=== PATIENT | male | born 1950 ===

== ENCOUNTER 2020-03-21 17:36 | Emergency (ER) | payer MEDICARE, SELFPAY ==
[2020-03-21 21:38] VITALS: BP 166/98; PULSE 76; RESP 18; O2SAT 99; BMI 30.7
[2020-03-21 23:33] VITALS: BP 160/92; PULSE 72; RESP 18
--- NOTE | 2020-03-21 23:35 | PC.NURSE ---
pt took own htn meds at 9:30pm
[2020-03-22 00:28] VITALS: BP 183/106; PULSE 69; RESP 17; TEMP 36.5; O2SAT 100
--- NOTE | 2020-03-22 00:30 | ED.RECABL ---
HPI - Recheck/Abnormal Lab/Rx General Chief Complaint: Recheck/Abnormal Lab/Rx Stated Complaint: HIGH BP Time Seen by Provider: 03/22/20 00:29 Source: patient Mode of arrival: ambulatory Limitations: language barrier History of Present Illness HPI narrative: Patient history of hypertension diabetes history of CVA on multiple medication for blood pressure including nifedipine 30 mg daily lisinopril 20 mg twice daily and Coreg twice daily for last 2 days noticed blood pressure on the high side. Patient denies any headache no chest pain or shortness of breath on arrival patient's blood pressure was 183/106 in the past patient blood pressure used to be in 120s few years ago patient used to be on multiple medications for blood pressure control per records Related Data Previous Rx's Medication Instructions Recorded amlodipine [Norvasc] 10 mg PO DAILY #30 tab 03/22/20 Allergies Allergy/AdvReac Type Severity Reaction Status Date / Time No Known Allergies Allergy Unverified 11/25/19 16:43 [No Known Allergies*] Review of Systems Review of Systems: Constitutional : No Weight loss, No Fever, No Chills ENT/Mouth : No sore throat, No Rhinorrhea Eyes: No Eye Pain, No Swelling Cardiovascular : No Chest Pain, no palpitations Respiratory : No Cough, No Sputum, no shortness of breath Gastrointestinal : no Nausea, No Vomiting, No Diarrhea, No abdominal Pain, no black stools Genitourinary : No Dysuria, No Urinary Frequency Musculoskeletal : No joint pain, No Myalgias, No Joint Swelling Skin : No Skin Lesions, No rash Neuro : No Weakness, No Numbness, No Dizziness, No Headache Psych : No Anxiety/Panic, No Depression Heme/Lymph: No Bruising, No Lymphadenopathy Endocrine : No Polyuria, No Polydipsia All other systems reviewed and are negative [facility] Past Medical History Medical History Diabetes 1.5, managed as type 2 Hypertension Social History Social History Advance Directives: No Physical Exam Vital Signs: Vital Signs: Last Vital Signs Temp 97.7 F 03/22/20 00:28 Pulse 90 03/22/20 01:20 Resp 17 03/22/20 00:28 BP 140/97 H 03/22/20 01:20 Pulse Ox 100 03/22/20 00:28 Body Mass Index 30.7 Appearance: Alert. Oriented X3. No acute distress. Eyes: Pupils equal, round and reactive to light. ENT: Pharynx normal. Neck: Normal inspection. Neck supple. CVS: Normal heart rate and rhythm. Pulses normal. Respiratory: No respiratory distress. Breath sounds normal. Abdomen: Soft and nontender. Bowel sounds are present, no mass palpable, no CVA tenderness Skin: Skin warm and dry. Normal skin color. Normal skin turgor. Extremities: No lower extremity edema. Neuro: Oriented X 3. No motor deficit. No sensory deficit. MDM - Recheck/Abnormal Lab/Rx MDM Narrative Medical decision making narrative: Patient with history of diabetes and hypertension on multiple medications for blood pressure control came here for her accelerated hypertension without any clinical and organ damage. Will check the patient's labs to see if any elevation and BUN/ creatinine. Patient had stable labs, Will stop nifedipine for heart rate of 59 and start on on Norvasc 10 mg daily and advised to follow-up with PCP patient's blood pressure improved to 141/86 Medical Records Attestation: I reviewed the patient's medical records. Lab Data Attestation: I reviewed the patient's lab results. Result diagrams: 03/22/20 01:15 03/22/20 01:15 Labs: Lab Results 03/22/20 03/22/20 Range/Units 01:15 01:15 WBC 8.9 (4.8-10.8) X10*3/uL RBC 4.66 (4.60-5.80) X10*6/uL Hgb 13.1 L (14.0-18.0) g/dl Hct 40.8 L (42-52) % MCV 87.6 (80-98) fL MCH 28.1 (27.0-33.0) pg MCHC 32.1 (31.0-36.0) g/dl RDW 13.8 (11.0-16.0) % Plt Count 231 (160-400) X10*3/uL MPV 9.8 (9.4-12.4) fL Immature Gran % (Auto) 0.1 (0.0-0.4) % Neut % (Auto) 58.1 (45-73) % Lymph % (Auto) 32.4 (20-40) % [place] % (Auto) 8.5 (2-11) % Eos % (Auto) 0.7 (0-4) % Baso % (Auto) 0.2 (0-2) % Lymph # (Auto) 2.9 (1.2-4.9) X10*3/uL [place] # (Auto) 0.8 (0.1-1.2) X10*3/uL Eos # (Auto) 0.1 (0.0-0.4) X10*3/uL Baso # (Auto) 0.0 (0.0-0.2) X10*3/uL Abs Immat Gran (auto) 0.01 (0.00-0.03) X10*3/uL Absolute Neuts (auto) 5.2 (2.0-8.3) X10*3/uL Absolute Nucleated RBC 0.000 (0.0-0.012) X10*3/uL Nucleated RBC % (auto) 0.0 (0.0-0.2) /100WBC Sodium 139 (135-145) mmol/L Potassium 3.7 (3.3-5.1) mmol/l Chloride 101 (96-108) mmol/L Carbon Dioxide 30 H (22-29) mmol/L Anion Gap 12 (12-20) BUN 16 (9-16) mg/dL Creatinine 1.41 H (0.5-1.4) mg/dL Estim Creat Clear Calc 58.6 Estimated GFR 50 Random Glucose 97 (60-115) mg/dL Calcium 9.8 (8.4-10.2) mg/dL Total Bilirubin 0.4 (0.0-1.0) mg/dL Direct Bilirubin 0.2 (0.0-0.5) mg/dL AST 19 (5-37) U/L ALT 19 (0-40) U/L Alkaline Phosphatase 80 (39-117) U/L Total Protein 7.6 (6.5-8.0) g/dL Albumin 4.3 (3.5-5.0) g/dL ECG Data Attestation: I personally reviewed and interpreted this ECG as follows: Interpretation: Sinus bradycardia with heart rate of 59 normal intervals normal axis no acute ischemic changes Discharge Plan Discharge Clinical Impression: Hypertension Qualifiers: Hypertension type: essential hypertension Qualified Code(s): I10 - Essential (primary) hypertension Patient Disposition: Home, Self-Care Instructions: Hypertension (ED) Additional Instructions: Stop nifedipine and start on amlodipine 10 mg daily Check blood pressure daily he should be less than 140/90 Suspenda la nifedipina y comience con amlodipina 10 mg al d?a Controle la presi?n arterial diariamente, debe ser inferior a 140/90 Prescriptions: New amlodipine [Norvasc] 10 mg tablet 10 mg PO DAILY Qty: 30 RF: 0 Print Language: [place]ish
--- NOTE | 2020-03-22 00:47 | ECG_ITS ---
Test Reason : ABDNORMAL LABS Blood Pressure : / mmHG Vent. Rate : 059 BPM Atrial Rate : 059 BPM P-R Int : 186 ms QRS Dur : 138 ms QT Int : 416 ms P-R-T Axes : 043 016 023 degrees QTc Int : 411 ms Sinus bradycardia Non-specific intra-ventricular conduction block Abnormal ECG When compared with ECG of 09-JAN-2015 16:21, No significant change was found Referred By: Fransico Trivedi Electronically Signed By:KIP HARRIS MD
[2020-03-22 01:19] LABS: MANUAL DIFF FLAG NO
[2020-03-22 01:20] VITALS: BP 140/97; PULSE 90
[2020-03-22 01:35] LABS: Basophils Percent Auto 0.2 % (0-2); Eosinophils Absolute Auto 0.1 X10*3/uL (0.0-0.4); Eosinophils Percent Auto 0.7 % (0-4); Hematocrit 40.8 % (42-52); Hemoglobin 13.1 g/dl (14.0-18.0); Imm Gran Abs Auto 0.01 X10*3/uL (0.00-0.03); Imm Gran Pct Auto 0.1 % (0.0-0.4); Lymphocytes Absolute Auto 2.9 X10*3/uL (1.2-4.9); Lymphocytes Percent Auto 32.4 % (20-40); Mean Corpuscular HGB Conc 32.1 g/dl (31.0-36.0); Mean Corpuscular Hemoglobin 28.1 pg (27.0-33.0); Mean Corpuscular Volume 87.6 fL (80-98); Mean Platelet Volume 9.8 fL (9.4-12.4); Monocytes Absolute Auto 0.8 X10*3/uL (0.1-1.2); Monocytes Percent Auto 8.5 % (2-11); Neutrophils Absolute Auto 5.2 X10*3/uL (2.0-8.3); Neutrophils Percent Auto 58.1 % (45-73); Platelet Count 231 X10*3/uL (160-400); Red Blood Count 4.66 X10*6/uL (4.60-5.80); Red Cell Distribution Width 13.8 % (11.0-16.0); White Blood Count 8.9 X10*3/uL (4.8-10.8)
[2020-03-22 01:47] LABS: Alanine Aminotransferase 19 U/L (0-40); Albumin Level 4.3 g/dL (3.5-5.0); Alkaline Phosphatase 80 U/L (39-117); Anion Gap 12 (12-20); Aspartate Amino Transferase 19 U/L (5-37); Bilirubin Direct 0.2 mg/dL (0.0-0.5); Bilirubin Total 0.4 mg/dL (0.0-1.0); Blood Urea Nitrogen 16 mg/dL (9-16); Calcium 9.8 mg/dL (8.4-10.2); Carbon Dioxide 30 mmol/L (22-29); Chloride 101 mmol/L (96-108); Creatinine Clr Calc Pharmacy 58.6; Estimated Glomerular Filt Rate 50; Glucose Random 97 mg/dL (60-115); Potassium 3.7 mmol/l (3.3-5.1); Sodium 139 mmol/L (135-145); Total Protein 7.6 g/dL (6.5-8.0)
[2020-03-22 02:00] VITALS: BP 130/64; PULSE 70; RESP 18
== END 2020-03-22 02:30 | disposition home or self-care (01) ==
PROVIDERS: Emergency Provider Internal Medicine; PCP General Practice
DX: I10 Essential (primary) hypertension (principal); E11.9 Type 2 diabetes mellitus without complications; R00.1 Bradycardia, unspecified; Z86.73 Personal history of transient ischemic attack (TIA), and cerebral infarction without residual deficits; Z79.899 Other long term (current) drug therapy
CPT/HCPCS: 36415; 80048; 80076; 85025; 93005; 99283; 99284

== ENCOUNTER 2020-03-22 12:41 | Emergency (ER) | payer MEDICARE, SELFPAY ==
[2020-03-22 13:16] VITALS: PULSE 68; RESP 16; TEMP 36.9; O2SAT 99; BMI 30.8
--- NOTE | 2020-03-22 13:25 | ED_ITS ---
HPI - General Adult General Chief complaint: General Medical Stated complaint: htn Time Seen by Provider: 03/22/20 12:52 History of Present Illness HPI narrative: Please see course for history and physical Related Data Previous Rx's Medication Instructions Recorded amlodipine [Norvasc] 10 mg PO DAILY #30 tab 03/22/20 Allergies Allergy/AdvReac Type Severity Reaction Status Date / Time No Known Allergies Allergy Unverified 11/25/19 16:43 [No Known Allergies*] PMF Past Medical History Medical History Diabetes 1.5, managed as type 2 Hypertension Social History Social History Advance Directives: No Advance Directives Information Provided: Yes Physical Exam Vital Signs: Vital Signs: Last Vital Signs Temp 98.0 F 03/22/20 15:50 Pulse 60 03/22/20 15:50 Resp 18 03/22/20 15:50 BP 149/76 H 03/22/20 15:50 Pulse Ox 100 03/22/20 15:50 Body Mass Index 30.8 Course Course Course Narrative: Time Seen by Provider: 03/22/20 13:17 Source: patient Mode of arrival: EMS Limitations: language barrier History of Present Illness HPI narrative: Doctor told him to come to the ED. His initial BP 180/90. Patient with no other complaints. BP down to 120 Related Data Previous Rx's Medication Instructions Recorded folic acid 1 mg tablet 1 mg PO DAILY #30 tab 12/22/19 metformin 500 mg tablet 500 mg PO BID #60 tab 12/22/19 furosemide 20 mg tablet 20 mg PO DAILY #30 tab 03/12/20 Allergies Allergy/AdvReac Type Severity Reaction Status Date / Time sulfamethoxazole Allergy Unknown Rash Verified 03/08/20 13:07 Review of Systems Constitutional: Constitutional: Reports no additional constitutional complaints Eyes: Eyes: Reports no additional eye complaints ENT: Denies dizziness Cardiovascular: Cardiovascular: Reports no additional cardiovascular complaints Respiratory: Respiratory: Reports as per HPI Gastrointestinal: Gastrointestinal: Reports no additional gastrointestinal complaints Musculoskeletal: Musculoskeletal: Reports no additional musculoskeletal complaints Integumentary/Breasts: Skin/Breast: Denies rash Neurologic: Reports system reviewed and no additional complaints, except as documented, Denies dizziness and Denies Sensory deficit (Neuro) Psychiatric: Psychiatric: Denies anxiety PMFSH Past Medical History Medical History Diabetes HTN (hypertension) Surgical History No pertinent past surgical history Family History Family History Father Diabetes Hypertension Mother Diabetes Hypertension Son No problems noted. Sister No problems noted. Physical Exam Vital Signs: Vital Signs: Last Vital Signs Temp 98.5 F 03/22/20 12:46 Pulse 68 03/22/20 13:04 Resp 16 03/22/20 12:46 BP 189/97 H 03/22/20 13:04 Pulse Ox 99 03/22/20 12:46 Body Mass Index 30.8 Const: General: healthy appearing Nutritional Appearance: average body habitus Orientation/consciousness: oriented to person and patient oriented x3 Limitations: no limitations HENMT: Head: Yes normal to inspection Ears: external ears normal General nose exam: Normal external nose present Mouth: Normal oral and palatal mucosa present and oropharynx normal Throat: Yes posterior oropharynx normal Eyes: General: appearance normal, both eyes and all related structures Neck: Other: supple Neck: Yes normal visual inspection Chest: Chest palpation & inspection: normal inspection of the chest Resp: Auscultation: clear to auscultation bilaterally Cardio: Jugular venous distension: no JVD Rate: regular rate Rhythm: regular rhythm Heart sounds: S1 normal heart sound present and S2 normal heart sound present GI: Inspection: Yes normal to inspection Palpation (GI): Soft to palpation, nontender and No hepatosplenomegaly present Auscultation: normal bowel sounds : General: Yes no CVA tenderness Back/Spine/Pelvis: Back: no CVA tenderness Skin: General skin exam: no rashes or lesions noted Neuro: General: oriented to person and patient oriented x3 Cranial nerves: Yes CN's II-XII intact bilaterally Motor exam (neuro): 5/5 motor strength present throughout Sensory Exam: No Sensory deficit (Neuro) Extrem: General: Yes normal to inspection Psych: Appearance: grossly normal Course Course Course Narrative: Patient stable blood pressure, labs normal Medical Decision Making MDM Narrative Medical decision making narrative: essential hypertension Discharge Plan Discharge Prescriptions: No Action folic acid 1 mg tablet 1 mg PO DAILY Qty: 30 RF: 3 metformin 500 mg tablet 500 mg PO BID Qty: 60 RF: 6 furosemide 20 mg tablet 20 mg PO DAILY Qty: 30 RF: 3 Medical Decision Making MDM Narrative Medical decision making narrative: patient with normalized BP no evidence of renal involvement. Will dc home Lab Data Result diagrams: 03/22/20 13:37 03/22/20 13:37 Labs: Lab Results 03/22/20 03/22/20 Range/Units 13:37 15:18 Sodium 140 (135-145) mmol/L Potassium 3.9 (3.3-5.1) mmol/l Chloride 101 (96-108) mmol/L Carbon Dioxide 31 H (22-29) mmol/L Anion Gap 12 (12-20) BUN 20 H (9-16) mg/dL Creatinine 1.44 H (0.5-1.4) mg/dL Estim Creat Clear Calc 57.5 Estimated GFR 48 Random Glucose 126 H (60-115) mg/dL Calcium 9.9 (8.4-10.2) mg/dL Urine Color YELLOW Urine Appearance CLEAR Urine pH 6.0 (5.0-8.0) Ur Specific Crystal 1.020 (1.005-1.025) Urine Protein NEG (NEG-TRACE) MG/DL Urine Glucose (UA) NEG (NEG) MG/DL Urine Ketones NEG (NEG) MG/DL Urine Blood NEG (NEG) Urine Nitrite NEG (NEG) Ur Leukocyte Esterase NEG (NEG) Discharge Plan Discharge Patient Disposition: Home, Self-Care Instructions: Chronic Hypertension (ED) Prescriptions: No Action amlodipine [Norvasc] 10 mg tablet 10 mg PO DAILY Qty: 30 RF: 0 Referrals: Lori Acevedo MD [Primary Care Provider] - 2 days
[2020-03-22 13:45] VITALS: BP 189/97; PULSE 68
[2020-03-22] MEDS: amLODIPine Besylate 10 MG TABLET PO (13:45)
[2020-03-22 14:03] LABS: Anion Gap 12 (12-20); Blood Urea Nitrogen 20 mg/dL (9-16); Calcium 9.9 mg/dL (8.4-10.2); Carbon Dioxide 31 mmol/L (22-29); Chloride 101 mmol/L (96-108); Creatinine Clr Calc Pharmacy 57.5; Estimated Glomerular Filt Rate 48; Glucose Random 126 mg/dL (60-115); Potassium 3.9 mmol/l (3.3-5.1); Sodium 140 mmol/L (135-145)
[2020-03-22 14:20] VITALS: BP 147/86; PULSE 59; RESP 18
[2020-03-22 15:50] VITALS: BP 149/76; PULSE 60; RESP 18; TEMP 36.7; O2SAT 100
--- NOTE | 2020-03-22 15:50 | PC.NURSE ---
patient a&ox3, vitals stable, pt watching tv awaiting disposition, will continue to monitor.
[2020-03-22 16:18] LABS: Appearance Urine CLEAR; Color Urine YELLOW
[2020-03-22 16:19] LABS: Glucose Urine UA NEG (NEG); Leukocyte Esterase Urine NEG (NEG); Nitrite Urine NEG (NEG); Urine Blood NEG (NEG); Urine Ketones NEG (NEG); Urine Protein NEG (NEG-TRACE)
== END 2020-03-22 16:58 | disposition home or self-care (01) ==
PROVIDERS: Emergency Provider Emergency Medicine; PCP General Practice
DX: I10 Essential (primary) hypertension (principal); E11.9 Type 2 diabetes mellitus without complications; Z79.84 Long term (current) use of oral hypoglycemic drugs; Z79.899 Other long term (current) drug therapy
CPT/HCPCS: 36415; 80048; 81003; 99283; 99284

== ENCOUNTER 2020-03-23 00:28 | Emergency (ER) | payer MEDICARE, SELFPAY ==
[2020-03-23 00:33] VITALS: BP 162/84; PULSE 70; RESP 16; TEMP 36.9; O2SAT 97
--- NOTE | 2020-03-23 01:59 | ED.GENADULT ---
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 He denies any chest pain or neuro symptoms - he is anxious Onset (ago): day(s) (3) Radiation: non-radiation Severity: mild Pain Consistency: constant Relieving factors: none Exacerbating factors: other (stress) Associated symptoms: denies other symptoms Treatments prior to arrival: other (states he takes all of his medications on multiple BP medications) Related Data Previous Rx's Medication Instructions Recorded amlodipine [Norvasc] 10 mg PO DAILY #30 tab 03/22/20 Allergies Allergy/AdvReac Type Severity Reaction Status Date / Time No Known Allergies Allergy Unverified 11/25/19 16:43 [No Known Allergies*] Review of Systems Review of Systems: Constitutional : No Weight loss, No Fever, No Chills, No Fatigue, No Malaise ENT/Mouth : No sore throat, No Rhinorrhea Eyes: No Eye Pain, No Swelling, No Redness Cardiovascular : No Chest Pain, No SOB, No Dyspnea on Exertion, No Orthopnea, No Edema, No Palpitations Respiratory : No Cough, No Sputum, No Wheezing Gastrointestinal : No Nausea, No Vomiting, No Diarrhea, No Constipation, No abdominal Pain, No Hematochezia, No Melena Genitourinary : No Dysuria, No Urinary Frequency, No Hematuria, Musculoskeletal : No joint pain, No Myalgias, No Joint Swelling Skin : No Skin Lesions, No rash Neuro : No Weakness, No Numbness, No Dizziness, No Headache Psych : pos Anxiety/Panic, No Depression PMFSH Past Medical History Attestation statement: The following information was validated with the patient. Medical History Diabetes 1.5, managed as type 2 Hypertension Social History Social History (Updated 03/23/20 @ 02:02 by Esha Harman DO) Alcohol intake: never Smoking Status: Never smoker Smoked in Last 30 Days: No Advance Directives: No Advance Directives Information Provided: No Physical Exam Vital Signs: Vital Signs: Last Vital Signs Temp 98.2 F 03/23/20 02:05 Pulse 64 03/23/20 02:05 Resp 18 03/23/20 02:05 BP 131/79 03/23/20 03:05 Pulse Ox 98 03/23/20 02:05 Body Mass Index 30.7 Appearance: Alert. Oriented X3. No acute distress. Anixous, somewhat upset Eyes: Pupils equal, round and reactive to light. ENT: Pharynx normal. Neck: Normal inspection. Neck supple. CVS: Normal heart rate and rhythm. Pulses normal. Respiratory: No respiratory distress. Breath sounds normal. Abdomen: Soft and nontender. Skin: Skin warm and dry. Normal skin color. Normal skin turgor. Extremities: No lower extremity edema. No calf ttp Neuro: Oriented X 3. No motor deficit. No sensory deficit. Course Course Course Narrative: BP in 130s feels much better stable for DC Medical Decision Making MDM Narrative Medical decision making narrative: 69 yo male with HTN on multiple medications just switched to amlodipine 10mg states it is not working after one dose, has been checking his BP every minute and states it remains high, he is very anxious over it, denies CP/neuro symptoms at this time will treat anxiety and see if that improves his BP - dispo per improvement, discussed need for PCP follow up Discharge Plan Discharge Clinical Impression: Anxiety HTN (hypertension) Qualifiers: Hypertension type: essential hypertension Qualified Code(s): I10 - Essential (primary) hypertension Patient Disposition: Home, Self-Care Instructions: Chronic Hypertension (ED), Anxiety (ED) Additional Instructions: return to ED for any worsening symptoms or concerns PLEASE CHECK YOUR BLOOD PRESSURE ONCE A DAY AT THE SAME TIME Prescriptions: No Action amlodipine [Norvasc] 10 mg tablet 10 mg PO DAILY Qty: 30 RF: 0 Referrals: [facility] [Primary Care Provider] - 2 days Interventions: ED Discharge Assessment Last Done: 03/23/20 03:31 Discharge Date/Time: 03/23/20 03:32 Print Language: [place]
[2020-03-23 02:05] VITALS: BP 179/93; PULSE 64; RESP 18; TEMP 36.8; O2SAT 98; BMI 30.7
[2020-03-23] MEDS: LORazepam 1 MG TABLET PO (02:11)
[2020-03-23 03:05] VITALS: BP 131/79
== END 2020-03-23 03:32 | disposition home or self-care (01) ==
LOC: HO.ED 02:27
PROVIDERS: Emergency Provider Emergency Medicine
DX: F41.1 Generalized anxiety disorder (principal); F43.0 Acute stress reaction; I10 Essential (primary) hypertension; Z79.899 Other long term (current) drug therapy
CPT/HCPCS: 99284

== ENCOUNTER 2020-04-07 14:08 | Emergency (ER) | payer MEDICARE, SELFPAY ==
[2020-04-07 15:38] VITALS: BP 160/83; PULSE 60; RESP 18; TEMP 36.4; O2SAT 100; BMI 30.7
== END 2020-04-07 18:36 | disposition left against medical advice (07) ==
PROVIDERS: Emergency Provider Emergency Medicine
DX: R03.0 Elevated blood-pressure reading, without diagnosis of hypertension (principal)
CPT/HCPCS: 99282; 99283

== ENCOUNTER 2020-04-12 22:08 | Emergency (ER) | payer MEDICARE, SELFPAY ==
--- NOTE | 2020-04-12 | XR_ITS ---
EXAMINATION: XR CHEST CLINICAL INFORMATION: Hypertension COMPARISON: 08/04/2014 TECHNIQUE: 2 views of the chest were obtained. FINDINGS: No focal consolidation or mass. No pleural effusion or pneumothorax. Tortuous aorta. Normal heart size. Degenerative changes of the shoulders and spine. XR/XR chest 2V IMPRESSION: No acute pulmonary disease.
[2020-04-12 22:11] VITALS: BP 197/91; PULSE 75; RESP 16; TEMP 36.7; O2SAT 99; BMI 30.7
[2020-04-12 22:17] VITALS: BP 165/81
[2020-04-12 22:19] VITALS: BP 180/86
--- NOTE | 2020-04-12 22:23 | ECG_ITS ---
Test Reason : HTN Blood Pressure : / mmHG Vent. Rate : 069 BPM Atrial Rate : 069 BPM P-R Int : 174 ms QRS Dur : 120 ms QT Int : 392 ms P-R-T Axes : 029 027 056 degrees QTc Int : 420 ms Normal sinus rhythm Non-specific intra-ventricular conduction block Abnormal ECG When compared with ECG of 22-MAR-2020 01:46, No significant change was found Referred By: Generic ED Physician Electronically Signed By:MANUEL ARIAS
--- NOTE | 2020-04-12 22:26 | PC.NURSE ---
DISCUSSED BPS WITH DR GAMBLE WHEN REVIEWING EKG FROM [facility].
[2020-04-12 22:43] LABS: MANUAL DIFF FLAG NO
[2020-04-12 22:44] LABS: Basophils Percent Auto 0.3 % (0-2); Eosinophils Absolute Auto 0.1 X10*3/uL (0.0-0.4); Hematocrit 38.4 % (42-52); Hemoglobin 12.4 g/dl (14.0-18.0); Imm Gran Abs Auto 0.02 X10*3/uL (0.00-0.03); Imm Gran Pct Auto 0.2 % (0.0-0.4); Mean Corpuscular HGB Conc 32.3 g/dl (31.0-36.0); Mean Corpuscular Hemoglobin 28.1 pg (27.0-33.0); Mean Corpuscular Volume 87.1 fL (80-98); Mean Platelet Volume 10.2 fL (9.4-12.4); Monocytes Absolute Auto 0.7 X10*3/uL (0.1-1.2); Monocytes Percent Auto 7.4 % (2-11); Neutrophils Absolute Auto 5.5 X10*3/uL (2.0-8.3); Neutrophils Percent Auto 59.1 % (45-73); Platelet Count 231 X10*3/uL (160-400); Red Blood Count 4.41 X10*6/uL (4.60-5.80); Red Cell Distribution Width 13.2 % (11.0-16.0); White Blood Count 9.2 X10*3/uL (4.8-10.8)
[2020-04-12 23:08] LABS: Anion Gap 13 (12-20); Blood Urea Nitrogen 24 mg/dL (9-16); Calcium 9.5 mg/dL (8.4-10.2); Carbon Dioxide 29 mmol/L (22-29); Chloride 100 mmol/L (96-108); Creatinine Clr Calc Pharmacy 53.3; Estimated Glomerular Filt Rate 45; Glucose Random 101 mg/dL (60-115); Potassium 3.7 mmol/L (3.3-5.1); Sodium 138 mmol/L (135-145)
[2020-04-12 23:15] LABS: B Type Natriuretic Peptide < 10 pg/mL (<100)
[2020-04-12 23:57] VITALS: BP 165/79; PULSE 62; RESP 16; O2SAT 98
--- NOTE | 2020-04-13 00:02 | ED.GENADULT ---
HPI - General Adult General Chief complaint: General Medical Stated complaint: hypertension Time Seen by Provider: 04/12/20 23:59 Mode of arrival: ambulatory Limitations: language barrier History of Present Illness HPI narrative: 70-year-old male with past medical history of hypertension, chronic kidney disease, and diabetes presents with elevated blood pressure. Patient does take his blood pressure several times a day, has presented to this emergency department in the past for similar circumstances. He states that he does not take his medications as directed. He does not report any other symptoms, denies chest pain or pressure, palpitations, shortness of breath, abdominal pain, abdominal distention, dysuria hematuria, fevers, chills, and edema. Related Data Previous Rx's Medication Instructions Recorded amlodipine [Norvasc] 10 mg PO DAILY #30 tab 03/22/20 Allergies Allergy/AdvReac Type Severity Reaction Status Date / Time No Known Allergies Allergy Verified 04/12/20 22:10 [No Known Allergies*] Review of Systems Review of Systems: Constitutional: No Fever, No Chills ENT/Mouth: No Ear Pain, No Hoarseness, No sore throat Eyes: No Eye Pain, No Swelling, No Redness, No Foreign Body Cardiovascular: No Chest Pain, No SOB Respiratory: No Cough, No Dyspnea Gastrointestinal: No Nausea, No Vomiting, No Diarrhea, No abdominal Pain Genitourinary: No Dysuria, No Hematuria Musculoskeletal: No joint pain, No Myalgias, No Joint Swelling Skin: No Skin lacerations, No rash Neuro: No Weakness, No Numbness, No Paresthesias, No Loss of Consciousness, No Dizziness, No Headache Psych: No Anxiety/Panic, No Depression Heme/Lymph: no easy bruising, no Lymphadenopathy Endocrine: No Polyuria, No Polydipsia Yes all other systems are reviewed and are negative [facility] Past Medical History Source: old records reviewed Medical History Diabetes 1.5, managed as type 2 Hypertension Social History Social History Alcohol intake: never Smoking Status: Never smoker Advance Directives: No Physical Exam Vital Signs: Vital Signs: Last Vital Signs Temp 98.1 F 04/12/20 22:11 Pulse 54 04/13/20 02:22 Resp 18 04/13/20 02:22 BP 155/90 H 04/13/20 02:22 Pulse Ox 95 04/13/20 02:22 Body Mass Index 30.7 Appearance: Alert. Oriented X3. No acute distress. Eyes: Pupils equal, round and reactive to light. ENT: Pharynx normal. Neck: Normal inspection. Neck supple. CVS: Normal heart rate and rhythm. Pulses normal. Respiratory: No respiratory distress. Breath sounds normal. Abdomen: Soft and nontender. Skin: Skin warm and dry. Normal skin color. Normal skin turgor. Extremities: No lower extremity edema. Neuro: No motor deficit. No sensory deficit. NIH Stroke Scale Internal: Initial- Upon Arrival Level of Consciousness: Alert Level of Consciousness Questions: Answers both questions correctly Level of Consciousness Commands: Performs both tasks correctly Best Gaze: Normal Visual: No visual loss Facial Palsy: Normal Motor Arm (Right): No drift Motor Arm (Left): No drift Motor Leg (Right): No drift Motor Leg (Left): No drift Limb Ataxia: Absent Sensory: Normal Best Language: No aphasia Dysarthia: Normal Extinction and Inattention: No abnormality Score: 0 Course Course Course Narrative: 70-year-old male past medical history of hypertension, diabetes, chronic kidney disease stage 3 presents with elevated blood pressure. States that his blood pressure was 197/102 to prior to taking his medications. He does not report any symptoms, denies chest pain and pressure, palpitations, shortness of breath, edema, and altered mental status. Patient would like us to pursue scribe other medications. Detailed description regarding following up with primary care physician for medication management. Repeat blood pressures are 154/80, patient EKG is normal sinus rhythm with no significant changes when compared to March 22, 2020, EKG of March 22, 2020 compared to January 09, 2015 showed no significant changes. Highly unlikely that this is ACS at this time. Troponin at time 10:35 p.m. 11.7, repeat troponin at 12:49 a.m. 11.3. This is suspected to be from chronic kidney disease. BUN elevated at 24 which is not much different than his prior values of 20, creatinine 1.53 prior values of 1.44 on 03/22/2020. Cranial nerves 2-12 intact, strength 5/5 to all extremities, NIH stroke scale is 0. Patient was advised to continue to take all of his medications as prescribed. Follow up with his primary care provider, multiple discussions with patient that the emergency department is not the proper place to present for medication management. Patient strongly advised to follow up with his primary care physician. This case was discussed in detail with Dr. Ayers., and he agrees with this plan of care. marketing project manager utilized for all correspondence. Google translate utilized for discharge instructions. Medical Decision Making Differential Diagnosis Differential Diagnosis: Hypertension, CVA, ACS, renal failure Lab Data Result diagrams: 04/12/20 22:35 04/12/20 22:35 Labs: Lab Results 04/12/20 04/12/20 04/12/20 Range/Units 22:35 22:35 22:35 WBC 9.2 (4.8-10.8) X10*3/uL RBC 4.41 L (4.60-5.80) X10*6/uL Hgb 12.4 L (14.0-18.0) g/dl Hct 38.4 L (42-52) % MCV 87.1 (80-98) fL MCH 28.1 (27.0-33.0) pg MCHC 32.3 (31.0-36.0) g/dl RDW 13.2 (11.0-16.0) % Plt Count 231 (160-400) X10*3/uL MPV 10.2 (9.4-12.4) fL Immature Gran % (Auto) 0.2 (0.0-0.4) % Neut % (Auto) 59.1 (45-73) % Lymph % (Auto) 32.0 (20-40) % [place] % (Auto) 7.4 (2-11) % Eos % (Auto) 1.0 (0-4) % Baso % (Auto) 0.3 (0-2) % Lymph # (Auto) 3.0 (1.2-4.9) X10*3/uL [place] # (Auto) 0.7 (0.1-1.2) X10*3/uL Eos # (Auto) 0.1 (0.0-0.4) X10*3/uL Baso # (Auto) 0.0 (0.0-0.2) X10*3/uL Abs Immat Gran (auto) 0.02 (0.00-0.03) X10*3/uL Absolute Neuts (auto) 5.5 (2.0-8.3) X10*3/uL Absolute Nucleated RBC 0.000 (0.0-0.012) X10*3/uL Nucleated RBC % (auto) 0.0 (0.0-0.2) /100WBC Hold Blue Top SEE NOTE Sodium 138 (135-145) mmol/L Potassium 3.7 (3.3-5.1) mmol/L Chloride 100 (96-108) mmol/L Carbon Dioxide 29 (22-29) mmol/L Anion Gap 13 (12-20) BUN 24 H (9-16) mg/dL Creatinine 1.53 H (0.5-1.4) mg/dL Estim Creat Clear Calc 53.3 Estimated GFR 45 Random Glucose 101 (60-115) mg/dL Calcium 9.5 (8.4-10.2) mg/dL Troponin I High Sens (<3.5-35.0) ng/L B-Natriuretic Peptide (<100) pg/mL 04/12/20 04/12/20 04/13/20 Range/Units 22:35 22:35 00:49 WBC (4.8-10.8) X10*3/uL RBC (4.60-5.80) X10*6/uL Hgb (14.0-18.0) g/dl Hct (42-52) % MCV (80-98) fL MCH (27.0-33.0) pg MCHC (31.0-36.0) g/dl RDW (11.0-16.0) % Plt Count (160-400) X10*3/uL MPV (9.4-12.4) fL Immature Gran % (Auto) (0.0-0.4) % Neut % (Auto) (45-73) % Lymph % (Auto) (20-40) % [place] % (Auto) (2-11) % Eos % (Auto) (0-4) % Baso % (Auto) (0-2) % Lymph # (Auto) (1.2-4.9) X10*3/uL [place] # (Auto) (0.1-1.2) X10*3/uL Eos # (Auto) (0.0-0.4) X10*3/uL Baso # (Auto) (0.0-0.2) X10*3/uL Abs Immat Gran (auto) (0.00-0.03) X10*3/uL Absolute Neuts (auto) (2.0-8.3) X10*3/uL Absolute Nucleated RBC (0.0-0.012) X10*3/uL Nucleated RBC % (auto) (0.0-0.2) /100WBC Hold Blue Top Sodium (135-145) mmol/L Potassium (3.3-5.1) mmol/L Chloride (96-108) mmol/L Carbon Dioxide (22-29) mmol/L Anion Gap (12-20) BUN (9-16) mg/dL Creatinine (0.5-1.4) mg/dL Estim Creat Clear Calc Estimated GFR Random Glucose (60-115) mg/dL Calcium (8.4-10.2) mg/dL Troponin I High Sens 11.7 11.3 (<3.5-35.0) ng/L B-Natriuretic Peptide < 10 (<100) pg/mL ECG Data Attestation: I personally reviewed and interpreted this ECG as follows: Prior ECG tracings: available for review Interpretation: Vent. rate 69 BPM NH interval 174 ms QRS duration 120 ms QT/QTc 392/420 ms P-R-T axes 29 27 56 Normal sinus rhythm Cannot rule out Inferior infarct , age undetermined Abnormal ECG When compared with ECG of 22-MAR-2020 01:46, No significant change was found Date April 12, 2020, time 10:25 p.m. Discharge Plan Discharge Clinical Impression: Encounter for medication management Hypertension Qualifiers: Hypertension type: essential hypertension Qualified Code(s): I10 - Essential (primary) hypertension Patient Disposition: Home, Self-Care Instructions: Hypertension (ED), Medication Safety for Older Adults (ED) Additional Instructions: Te evaluaron para detectar presi?n arterial elevada. Por favor, tome tata medicamentos seg?n lo prescrito. Los medicamentos son muy importantes para mantener la presi?n arterial. Por favor, jeremy un seguimiento con el proveedor de atenci?n primaria dentro de la pr?xima semana. Lisseth por elegir zabrina departamento de emergencias para la evaluaci?n. Por favor, jeremy un seguimiento con el m?dico de atenci?n primaria seg?n sea necesario. Regrese al servicio de urgencias para cualquier s?ntoma nuevo, preocupante o que empeore. You were evaluated for elevated blood pressure. Please take your medications as prescribed. Your medications are very important to maintaining blood pressure. Please follow-up with primary care provider within the next week. Thank you for choosing this emergency department for evaluation. Please follow-up with primary care physician as needed. Return to the emergency department for any new, concerning, or worsening symptoms. Prescriptions: No Action amlodipine [Norvasc] 10 mg tablet 10 mg PO DAILY Qty: 30 RF: 0
[2020-04-13 00:25] LABS: Troponin-I High Sensitivity 11.7 ng/L (<3.5-35.0)
--- NOTE | 2020-04-13 00:26 | PC.NURSE ---
BOOKKEEPER RECEPTIONIST at bedside with options trader for primary eval.
[2020-04-13 00:27] VITALS: BP 154/80; PULSE 65; RESP 16
--- NOTE | 2020-04-13 00:33 | PC.NURSE ---
Per pt, last time he was seen at [facility], his HTN medication was changed from Spironolactone to Norvasc due to CKD. Pt states that he took the Norvasc briefly but states that his BP remained elevated. When he went to refill his RXs, he started taking the Spironolactone again even though he was told not to due to CKD. Pt seeing Nephrology due to CKD. Pt states that he checked his BP on his home machine @ 2100 prior to taking his PM antihypertensive.
--- NOTE | 2020-04-13 00:49 | PC.NURSE ---
Repeat Troponin obtained and sent.
[2020-04-13 01:17] LABS: Troponin-I High Sensitivity 11.3 ng/L (<3.5-35.0)
[2020-04-13 02:22] VITALS: BP 155/90; PULSE 54; RESP 18; O2SAT 95
== END 2020-04-13 02:31 | disposition home or self-care (01) ==
PROVIDERS: Nurse Practitioner Family; Emergency Provider Emergency Medicine
DX: I10 Essential (primary) hypertension (principal); Z91.14 Patient's other noncompliance with medication regimen; R29.700 NIHSS score 0
CPT/HCPCS: 36415; 71046; 80048; 83880; 84484; 85025; 93005; 99283; 99284

== ENCOUNTER 2020-04-17 23:34 | Emergency (ER) | payer MEDICARE, SELFPAY | END 2020-04-18 03:12 | disposition left against medical advice (07) | PROVIDERS: Emergency Provider Emergency Medicine | DX: I10 Essential (primary) hypertension (principal) ==

== ENCOUNTER 2020-04-27 11:38 | Emergency (ER) | payer MEDICARE, SELFPAY ==
[2020-04-27 11:43] VITALS: BP 174/74; PULSE 72; RESP 16; TEMP 36.8; O2SAT 99
[2020-04-27 15:07] LABS: MANUAL DIFF FLAG NO
[2020-04-27 15:08] LABS: Basophils Percent Auto 0.5 % (0-2); Eosinophils Absolute Auto 0.1 X10*3/uL (0.0-0.4); Eosinophils Percent Auto 0.6 % (0-4); Hematocrit 43.5 % (42-52); Hemoglobin 13.8 g/dl (14.0-18.0); Imm Gran Abs Auto 0.02 X10*3/uL (0.00-0.03); Imm Gran Pct Auto 0.2 % (0.0-0.4); Lymphocytes Absolute Auto 2.1 X10*3/uL (1.2-4.9); Lymphocytes Percent Auto 23.7 % (20-40); Mean Corpuscular HGB Conc 31.7 g/dl (31.0-36.0); Mean Corpuscular Hemoglobin 27.5 pg (27.0-33.0); Mean Corpuscular Volume 86.7 fL (80-98); Mean Platelet Volume 9.9 fL (9.4-12.4); Monocytes Absolute Auto 0.5 X10*3/uL (0.1-1.2); Platelet Count 245 X10*3/uL (160-400); Red Blood Count 5.02 X10*6/uL (4.60-5.80); Red Cell Distribution Width 13.4 % (11.0-16.0); White Blood Count 8.7 X10*3/uL (4.8-10.8)
[2020-04-27 15:32] LABS: Anion Gap 11 (12-20); Blood Urea Nitrogen 13 mg/dL (9-16); Calcium 10.3 mg/dL (8.4-10.2); Carbon Dioxide 33 mmol/L (22-29); Chloride 99 mmol/L (96-108); Estimated Glomerular Filt Rate 54; Glucose Random 147 mg/dL (60-115); Potassium 3.8 mmol/L (3.3-5.1); Sodium 139 mmol/L (135-145)
[2020-04-27 17:34] VITALS: BP 164/87; PULSE 58; RESP 14; O2SAT 100
[2020-04-27 17:37] VITALS: BP 164/87; PULSE 59; RESP 14; TEMP 36.6; O2SAT 100; BMI 30.4
--- NOTE | 2020-04-27 18:13 | ED_ITS ---
HPI - General Adult General Chief complaint: General Medical Stated complaint: HYPERTENTION Time Seen by Provider: 04/27/20 12:35 Source: patient and air conditioning unit assembler Mode of arrival: ambulatory Limitations: no limitations History of Present Illness HPI narrative: 70-year-old male with history of hypertension, patient is on multiple medication for hypertension patient admitted that his been compliant with his medication, today patient had blood pressure systolic was above 200, patient otherwise declined any headache or blurry vision or nausea or vomiting, no chest pain or abdominal pain. In the emergency department systolic blood pressure in the 150s, patient remain with no complain. Is tender routine labs were drawn from the waiting room and appear in his normal baseline. Related Data Previous Rx's Medication Instructions Recorded amlodipine [Norvasc] 10 mg PO DAILY #30 tab 03/22/20 Allergies Allergy/AdvReac Type Severity Reaction Status Date / Time No Known Allergies Allergy Verified 04/27/20 17:40 [No Known Allergies*] Review of Systems Review of Systems: All other systems are reviewed and are negative Constitutional: Reports as per HPI and Reports no additional constitutional complaints Eyes: Reports as per HPI and Reports no additional eye complaints Reports system reviewed and no additional complaints, except as documented Cardiovascular: Reports as per HPI and Reports no additional cardiovascular complaints Respiratory: Reports as per HPI and Reports no additional respiratory complaints Gastrointestinal: Reports as per HPI and Reports no additional gastrointestinal complaints Genitourinary: Reports no additional female genitourinary complaints Musculoskeletal: Reports no additional musculoskeletal complaints Skin/Breast: Reports system reviewed and no additional complaints, except as doc u Psychiatric: Reports no additional psychiatric complaints Endocrine: Reports no additional endocrine complaints Hematologic/Lymphatic: Reports no additional hematologic/lymphatic complaints Allergic/Immunologic: Reports no additional allergic/immunologic complaints Reports system reviewed and no additional complaints, except as documented and Reports Abnormal speech present [facility] Past Medical History Medical History Diabetes 1.5, managed as type 2 Hypertension Social History Social History Alcohol intake: never Smoking Status: Never smoker Advance Directives: No Advance Directives Information Provided: Yes Physical Exam Vital Signs: Vital Signs: Last Vital Signs Temp 97.8 F 04/27/20 17:37 Pulse 59 04/27/20 17:37 Resp 14 04/27/20 17:37 BP 164/87 H 04/27/20 17:37 Pulse Ox 100 04/27/20 17:37 Body Mass Index 30.4 Vital signs have been reviewed as appeared to be correct. Blood pressure in the high range. Heart rate normal. Respiration rate normal. Temperature normal. Oxygen saturation normal. Appearance: Alert. Oriented X3. No acute distress. Head: Normal external exam. Normocephalic. Atraumatic. No Peck signs noted. No raccoon eyes noted Eyes: PERRLA. EOMI. Conjunctiva and sclera normal. Eyelids normal. ENT: TM's Normal. Pharynx normal. Uvula midline. Moist mucous membranes. No trismus noted. No drooling noted. No muffled voice noted. Neck: Normal inspection. Neck supple. FROM. No adenopathy. Thyroid Normal. No meningeal signs. No neck mass noted. CVS: Normal heart rate and rhythm. Heart sound normal. No murmurs noted. Pulses normal throughout. Respiratory: No respiratory distress. Painless inspiration. Breath sounds normal. No wheezes/rales/rhonchi noted. Chest nontender. No accessory muscle usage noted or decreased air movement noted. Abdomen: Soft and nontender. Bowel sounds normal in all 4 quadrants. No distention noted. No organomegaly noted. No visible injury noted. Back: No CVA tenderness. Full range of motion noted. Skin: Skin warm and dry. Normal skin color. Normal skin turgor. No rashes/lesions/lacerations noted. Extremities: No lower extremity edema. Extremities exhibit normal range of motion. Extremities nontender. Neuro: Oriented X 3. No motor deficit. No sensory deficit. Reflexes normal. Course Course Course Narrative: Hypertension, I had a lengthy conversation with the patient using the air conditioning unit assembler service to explain that blood pressure numbers can fluctuate throughout the day and he need to comply with his medication, patient had recent modification of his medication by different doctors patient was instructed to follow his PCP in terms of controlling his blood pressure, patient will make an appointment with his PCP for further management of blood pressure. Medical Decision Making Lab Data Lab results reviewed: Yes I reviewed the patient's lab results. Result diagrams: 04/27/20 14:58 04/27/20 14:58 Labs: Lab Results 04/27/20 04/27/20 04/27/20 Range/Units 14:58 14:58 14:58 WBC 8.7 (4.8-10.8) X10*3/uL RBC 5.02 (4.60-5.80) X10*6/uL Hgb 13.8 L (14.0-18.0) g/dl Hct 43.5 (42-52) % MCV 86.7 (80-98) fL MCH 27.5 (27.0-33.0) pg MCHC 31.7 (31.0-36.0) g/dl RDW 13.4 (11.0-16.0) % Plt Count 245 (160-400) X10*3/uL MPV 9.9 (9.4-12.4) fL Immature Gran % (Auto) 0.2 (0.0-0.4) % Neut % (Auto) 69.0 (45-73) % Lymph % (Auto) 23.7 (20-40) % [place] % (Auto) 6.0 (2-11) % Eos % (Auto) 0.6 (0-4) % Baso % (Auto) 0.5 (0-2) % Lymph # (Auto) 2.1 (1.2-4.9) X10*3/uL [place] # (Auto) 0.5 (0.1-1.2) X10*3/uL Eos # (Auto) 0.1 (0.0-0.4) X10*3/uL Baso # (Auto) 0.0 (0.0-0.2) X10*3/uL Abs Immat Gran (auto) 0.02 (0.00-0.03) X10*3/uL Absolute Neuts (auto) 6.0 (2.0-8.3) X10*3/uL Absolute Nucleated RBC 0.000 (0.0-0.012) X10*3/uL Nucleated RBC % (auto) 0.0 (0.0-0.2) /100WBC Hold Purple Top SEE NOTE Hold Blue Top SEE NOTE Sodium (135-145) mmol/L Potassium (3.3-5.1) mmol/L Chloride (96-108) mmol/L Carbon Dioxide (22-29) mmol/L Anion Gap (12-20) BUN (9-16) mg/dL Creatinine (0.5-1.4) mg/dL Estim Creat Clear Calc Estimated GFR Random Glucose (60-115) mg/dL Calcium (8.4-10.2) mg/dL 04/27/20 Range/Units 14:58 WBC (4.8-10.8) X10*3/uL RBC (4.60-5.80) X10*6/uL Hgb (14.0-18.0) g/dl Hct (42-52) % MCV (80-98) fL MCH (27.0-33.0) pg MCHC (31.0-36.0) g/dl RDW (11.0-16.0) % Plt Count (160-400) X10*3/uL MPV (9.4-12.4) fL Immature Gran % (Auto) (0.0-0.4) % Neut % (Auto) (45-73) % Lymph % (Auto) (20-40) % [place] % (Auto) (2-11) % Eos % (Auto) (0-4) % Baso % (Auto) (0-2) % Lymph # (Auto) (1.2-4.9) X10*3/uL [place] # (Auto) (0.1-1.2) X10*3/uL Eos # (Auto) (0.0-0.4) X10*3/uL Baso # (Auto) (0.0-0.2) X10*3/uL Abs Immat Gran (auto) (0.00-0.03) X10*3/uL Absolute Neuts (auto) (2.0-8.3) X10*3/uL Absolute Nucleated RBC (0.0-0.012) X10*3/uL Nucleated RBC % (auto) (0.0-0.2) /100WBC Hold Purple Top Hold Blue Top Sodium 139 (135-145) mmol/L Potassium 3.8 (3.3-5.1) mmol/L Chloride 99 (96-108) mmol/L Carbon Dioxide 33 H (22-29) mmol/L Anion Gap 11 L (12-20) BUN 13 (9-16) mg/dL Creatinine 1.31 (0.5-1.4) mg/dL Estim Creat Clear Calc TNP Estimated GFR 54 Random Glucose 147 H D (60-115) mg/dL Calcium 10.3 H D (8.4-10.2) mg/dL Discharge Plan Discharge Clinical Impression: Hypertension Qualifiers: Hypertension type: essential hypertension Qualified Code(s): I10 - Essential (primary) hypertension Patient Disposition: Home, Self-Care Instructions: Hypertension (ED) Prescriptions: No Action amlodipine [Norvasc] 10 mg tablet 10 mg PO DAILY Qty: 30 RF: 0 Referrals: [facility] [Primary Care Provider] - 2 days
== END 2020-04-27 18:42 | disposition home or self-care (01) ==
PROVIDERS: Emergency Provider Emergency Medicine
DX: I10 Essential (primary) hypertension (principal); E13.9 Other specified diabetes mellitus without complications
CPT/HCPCS: 36415; 80048; 85025; 99283

== ENCOUNTER 2020-05-02 21:46 | Emergency (ER) | payer MEDICARE, SELFPAY ==
[2020-05-02 22:58] VITALS: BP 175/89; PULSE 77; RESP 18; TEMP 36.6; O2SAT 98; BMI 30.4
[2020-05-03 00:22] VITALS: BP 166/86; PULSE 70; RESP 16; TEMP 37.3; O2SAT 98
--- NOTE | 2020-05-03 01:43 | ED_ITS ---
HPI - General Adult General Chief complaint: General Medical Stated complaint: HIGH BLOOD PRESSURE Time Seen by Provider: 05/03/20 01:43 Source: patient Mode of arrival: ambulatory Limitations: no limitations History of Present Illness HPI narrative: Patient history of hypertension denies heading blood pressure at home systolic was in 190s used to be on blood pressure medication the past but because of side effects not taking his medication in the past restarted on amlodipine when seen in the ER on 04/27 no headache no chest pain or shortness of breath patient very anxious on arrival blood pressure was 175/89 pulse rate 77 Related Data Previous Rx's Medication Instructions Recorded amlodipine [Norvasc] 10 mg PO DAILY #30 tab 03/22/20 Allergies Allergy/AdvReac Type Severity Reaction Status Date / Time No Known Allergies Allergy Verified 05/02/20 22:58 [No Known Allergies*] Review of Systems Review of Systems: Constitutional : No Weight loss, No Fever, No Chills ENT/Mouth : No sore throat, No Rhinorrhea Eyes: No Eye Pain, No Swelling Cardiovascular : No Chest Pain, no palpitations Respiratory : No Cough, No Sputum, no shortness of breath Gastrointestinal : no Nausea, No Vomiting, No Diarrhea, No abdominal Pain, no black stools Genitourinary : No Dysuria, No Urinary Frequency Musculoskeletal : No joint pain, No Myalgias, No Joint Swelling Skin : No Skin Lesions, No rash Neuro : No Weakness, No Numbness, No Dizziness, No Headache Psych : No Anxiety/Panic, No Depression Heme/Lymph: No Bruising, No Lymphadenopathy Endocrine : No Polyuria, No Polydipsia All other systems reviewed and are negative PMFSH Past Medical History Medical History Diabetes 1.5, managed as type 2 Hypertension Social History Social History Alcohol intake: never Use of substances other than those prescribed or required for medical reasons: No Advance Directives: No Physical Exam Vital Signs: Vital Signs: Last Vital Signs Temp 98.3 F 05/03/20 01:58 Pulse 81 05/03/20 01:58 Resp 18 05/03/20 01:58 BP 155/86 H 05/03/20 01:58 Pulse Ox 99 05/03/20 01:58 Body Mass Index 30.4 Appearance: Alert. Oriented X3. No acute distress. Anxious Eyes: PERRLA, No Nystagmus ENT: Pharynx normal. Oral Mucosa moist Neck: Normal inspection. Neck supple. CVS: Normal heart rate and rhythm. Pulses normal. Respiratory: No respiratory distress. Equal air entry bilateral, no wheezing/rales/rhonchi Abdomen: Soft and nontender. Bowel sounds are present, no mass palpable, no CVA tenderness Skin: Skin warm and dry. Normal skin color. Normal skin turgor. Extremities: No lower extremity edema. No calf tenderness Neuro: Oriented X 3. No motor deficit. No sensory deficit.No cerebellar signs , cranial nerves II-XII intact Medical Decision Making MDM Narrative Medical decision making narrative: Patient with multiple ED visits for hypertension started on amlodipine blood pressure fluctuating but during stay in the ER blood pressure was 155/86 patient advised to continue same medication and follow with PCP has physical anthropologist appointment today Discharge Plan Discharge Clinical Impression: Hypertension Qualifiers: Hypertension type: essential hypertension Qualified Code(s): I10 - Essential (primary) hypertension Patient Disposition: Home, Self-Care Instructions: Hypertension (ED) Additional Instructions: Continue medications and follow up with physical anthropologist as scheduled today Prescriptions: No Action amlodipine [Norvasc] 10 mg tablet 10 mg PO DAILY Qty: 30 RF: 0 Interventions: ED Discharge Assessment Last Done: 05/03/20 02:28 Discharge Date/Time: 05/03/20 02:20
[2020-05-03 01:58] VITALS: BP 155/86; PULSE 81; RESP 18; TEMP 36.8; O2SAT 99
== END 2020-05-03 02:20 | disposition home or self-care (01) ==
PROVIDERS: Emergency Provider Internal Medicine; PCP Internal Medicine
DX: I10 Essential (primary) hypertension (principal); E13.9 Other specified diabetes mellitus without complications
CPT/HCPCS: 99283; 99284

== ENCOUNTER 2020-10-18 13:40 | Outpatient (REF) | payer MEDICARE, SELFPAY ==
--- NOTE | ~2020-10-18 | XR_ITS ---
EXAMINATION: XR KNEE, RIGHT CLINICAL INFORMATION: Right knee pain. COMPARISON: None TECHNIQUE: Four views of the right knee. FINDINGS: Mild medial compartment joint space narrowing. Tiny tricompartmental marginal osteophytes. No osseous erosion. No fracture or dislocation. Small joint effusion. Atherosclerotic calcifications. XR/XR knee RT 4V IMPRESSION: Mild tricompartmental osteoarthritis. Small joint effusion.
== END 2020-10-18 13:41 | disposition home or self-care (01) ==
LOC: HO.XRAY 13:40
PROVIDERS: PCP General Practice; Visit Provider General Practice
DX: M25.561 Pain in right knee (principal)
CPT/HCPCS: 73564

== ENCOUNTER 2021-01-22 11:03 | Outpatient (REF) | payer MEDICARE, SELFPAY ==
[2021-01-22 12:05] LABS: Anion Gap 11 (12-20); Blood Urea Nitrogen 14 mg/dL (9-16); Calcium 9.9 mg/dL (8.4-10.2); Carbon Dioxide 32 mmol/L (22-29); Chloride 101 mmol/L (96-108); Estimated Glomerular Filt Rate 53; Sodium 140 mmol/L (135-145)
== END 2021-01-22 11:04 | disposition home or self-care (01) ==
LOC: HO.LAB 11:03
PROVIDERS: Visit Provider Internal Medicine Hypertension Specialist
DX: N18.31 Chronic kidney disease, stage 3a (principal)
CPT/HCPCS: 36415; 80051; 82310; 82565; 84520

== ENCOUNTER 2021-07-24 19:37 | Emergency (ER) | payer MEDICARE, SELFPAY ==
--- NOTE | 2021-07-24 | ECG_ITS ---
Test Reason : lightheadedness Blood Pressure : / mmHG Vent. Rate : 068 BPM Atrial Rate : 068 BPM P-R Int : 192 ms QRS Dur : 130 ms QT Int : 400 ms P-R-T Axes : 040 017 055 degrees QTc Int : 425 ms Normal sinus rhythm Non-specific intra-ventricular conduction block Minimal voltage criteria for LVH, may be normal variant ( Angel product ) Abnormal ECG When compared with ECG of 12-APR-2020 22:25, No significant change was found Referred By: Generic ED Physician Electronically Signed By:MANUEL ARIAS
[2021-07-24 21:36] VITALS: BP 168/95; PULSE 72; RESP 18; TEMP 37; O2SAT 99; BMI 31.8
[2021-07-24 22:02] LABS: Basophils Percent Auto 0.3 % (0-2); Eosinophils Absolute Auto 0.1 X10*3/uL (0.0-0.4); Eosinophils Percent Auto 0.7 % (0-4); Hematocrit 42.8 % (42.0-52.0); Hemoglobin 13.7 g/dl (14.0-18.0); Imm Gran Abs Auto 0.02 X10*3/uL (0.00-0.03); Imm Gran Pct Auto 0.2 % (0.0-0.4); Lymphocytes Absolute Auto 2.5 X10*3/uL (1.2-4.9); Lymphocytes Percent Auto 25.9 % (20-40); MANUAL DIFF FLAG NO; Mean Corpuscular Hemoglobin 27.2 pg (27.0-33.0); Mean Corpuscular Volume 85.1 fL (80.0-98.0); Mean Platelet Volume 10.2 fL (9.4-12.4); Monocytes Absolute Auto 0.8 X10*3/uL (0.1-1.2); Monocytes Percent Auto 7.9 % (2-11); Neutrophils Absolute Auto 6.4 x10*3/uL (2.0-8.3); Platelet Count 250 X10*3/uL (160-400); Red Blood Count 5.03 X10*6/uL (4.60-5.80); White Blood Count 9.8 X10*3/uL (4.8-10.8)
[2021-07-24 22:23] LABS: Alanine Aminotransferase 22 U/L (0-40); Albumin Level 4.3 g/dL (3.5-5.0); Alkaline Phosphatase 93 U/L (39-117); Anion Gap 13 (12-20); Aspartate Amino Transferase 25 U/L (5-37); Bilirubin Total 0.5 mg/dL (0.0-1.0); Blood Urea Nitrogen 18 mg/dL (9-16); Calcium 10.2 mg/dL (8.4-10.2); Carbon Dioxide 28 mmol/L (22-29); Chloride 100 mmol/L (96-108); Creatinine Clr Calc Pharmacy 53.4; Estimated Glomerular Filt Rate 45; Glucose Random 110 mg/dL (60-115); Potassium 3.3 mmol/L (3.3-5.1); Sodium 138 mmol/L (135-145); Total Protein 8.2 g/dL (6.5-8.0)
--- NOTE | 2021-07-25 07:25 | ED_ITS ---
HPI - General Adult General Chief complaint: General Medical Stated complaint: High Bp Time Seen by Provider: 07/25/21 07:18 Source: patient Mode of arrival: ambulatory Limitations: no limitations History of Present Illness HPI narrative: This is a 71 years old the patient presented to the emergency department comp laining of elevated blood pressure, he denies any chest pain and shortness of breath he has no symptoms at this time. He is on lisinopril hydrochlorothiazide 20/ 12.5 he takes 1 tablets daily, he takes norvasc 5 mg daily, he takes carvedilol 25 mg daiy. He denies any history of coronary artery disease he does have a history carotid disease, he has been seen in the emergency room in the past for asymptomatic hypertension Onset (ago): hour(s) (2) Radiation: non-radiation Severity: moderate Relieving factors: none Exacerbating factors: none Related Data Previous Rx's Medication Instructions Recorded amlodipine 10 mg tablet (Norvasc) 10 mg PO DAILY #30 tab 03/22/20 Allergies Allergy/AdvReac Type Severity Reaction Status Date / Time No Known Allergies Allergy Verified 05/02/20 22:58 [No Known Allergies*] Review of Systems Constitutional: Constitutional: Reports no additional constitutional complaints Cardiovascular: Cardiovascular: Reports no additional cardiovascular complaints and Denies chest pain Respiratory: Respiratory: Reports no additional respiratory complaints, Denies chest congestion and Denies cough PMFSH Past Medical History Medical History Diabetes 1.5, managed as type 2 Hypertension Social History Social History Alcohol intake: never Advance Directives: No Advance Directives Information Provided: No Physical Exam ED Vital Signs: Vital Signs - 24 hr 07/24/21 21:36 07/25/21 07:30 Temperature 98.6 F Pulse Rate 72 Respiratory Rate 18 Blood Pressure 168/95 H 202/94 H Pulse Oximetry 99 BMI result Body Mass Index 31.8 Const General: cooperative, healthy appearing, comfortable, no acute distress and well developed Nutritional Appearance: average body habitus HENMT Head: Yes normal to inspection Face and sinus: Yes normal facial exam Mouth: Normal oral and palatal mucosa present Throat: Yes posterior oropharynx normal Neck Neck: Yes normal visual inspection and Yes full ROM Chest Chest palpation & inspection: normal inspection of the chest Resp Effort & Inspection: normal respiratory effort Auscultation: clear to auscultation bilaterally Cardio Jugular venous distension: no JVD Rate: regular rate Rhythm: regular rhythm GI Palpation (GI): Soft to palpation, not firm and nontender Course Reevaluation(s) Reevaluation #1: blood pressure much better I explained to the patient that the blood pressure should be treated really by the primary care physician, he is asymptomatic,, I advised him that with 10 mg on Norvasc instead of 5 until he sees his primary care physician Medical Decision Making MDM Narrative Medical decision making narrative: this is a 71 years old male presented with asymptomatic hypertension, patient will be referred to his primary care physician in the interim will advise the patient to double his Norvasc from 5 mg to 10 mg daily. Lab Data Result diagrams: 07/24/21 21:54 07/24/21 21:54 Labs: Lab Results 07/24/21 07/24/21 Range/Units 21:54 21:54 WBC 9.8 (4.8-10.8) X10*3/uL RBC 5.03 (4.60-5.80) X10*6/uL Hgb 13.7 L (14.0-18.0) g/dl Hct 42.8 (42.0-52.0) % MCV 85.1 (80.0-98.0) fL MCH 27.2 (27.0-33.0) pg MCHC 32.0 (31.0-36.0) g/dl RDW 14.0 (11.0-16.0) % Plt Count 250 (160-400) X10*3/uL MPV 10.2 (9.4-12.4) fL Immature Gran % (Auto) 0.2 (0.0-0.4) % Neut % (Auto) 65.0 (45-73) % Lymph % (Auto) 25.9 (20-40) % [place] % (Auto) 7.9 (2-11) % Eos % (Auto) 0.7 (0-4) % Baso % (Auto) 0.3 (0-2) % Lymph # (Auto) 2.5 (1.2-4.9) X10*3/uL [place] # (Auto) 0.8 (0.1-1.2) X10*3/uL Eos # (Auto) 0.1 (0.0-0.4) X10*3/uL Baso # (Auto) 0.0 (0.0-0.2) X10*3/uL Abs Immat Gran (auto) 0.02 (0.00-0.03) X10*3/uL Absolute Neuts (auto) 6.4 (2.0-8.3) x10*3/uL Absolute Nucleated RBC 0.000 (0.0-0.012) X10*3/uL Nucleated RBC % (auto) 0.0 (0.0-0.2) /100WBC Sodium 138 (135-145) mmol/L Potassium 3.3 (3.3-5.1) mmol/L Chloride 100 (96-108) mmol/L Carbon Dioxide 28 (22-29) mmol/L Anion Gap 13 (12-20) BUN 18 H (9-16) mg/dL Creatinine 1.53 H (0.5-1.4) mg/dL Estim Creat Clear Calc 53.4 Estimated GFR 45 Random Glucose 110 (60-115) mg/dL Calcium 10.2 (8.4-10.2) mg/dL Total Bilirubin 0.5 (0.0-1.0) mg/dL AST 25 (5-37) U/L ALT 22 (0-40) U/L Alkaline Phosphatase 93 (39-117) U/L Total Protein 8.2 H (6.5-8.0) g/dL Albumin 4.3 (3.5-5.0) g/dL ECG Data Attestation: I personally reviewed and interpreted this ECG as follows: Pacemaker model: electrocardiogram 68 NSR rhythm a with intraventricular condution delay Discharge Plan Discharge Clinical Impression: Hypertension Patient Disposition: Home, Self-Care Instructions: Hypertension (ED) Additional Instructions: please follow-up with your primary care physician you could take a 10 mg of Norvasc instead of 5 until you see your primary care physician. Return if you worse Prescriptions: No Action amlodipine [Norvasc] 10 mg tablet 10 mg PO DAILY Qty: 30 0RF Referrals: Lori Acevedo MD [Primary Care Provider] - 2 days Interventions: ED Discharge Assessment Last Done: 07/25/21 09:36 Discharge Date/Time: 07/25/21 09:36
[2021-07-25 07:30] VITALS: BP 202/94
[2021-07-25] MEDS: amLODIPine Besylate 10 MG TABLET PO (07:49)
== END 2021-07-25 09:36 | disposition home or self-care (01) ==
PROVIDERS: Emergency Provider Emergency Medicine; PCP General Practice
DX: I10 Essential (primary) hypertension (principal); E13.9 Other specified diabetes mellitus without complications
CPT/HCPCS: 36415; 80053; 85025; 93005; 99283; 99284

== ENCOUNTER 2021-08-04 18:48 | Emergency (ER) | payer MEDICARE, SELFPAY ==
--- NOTE | 2021-08-04 | ECG_ITS ---
Test Reason : HYPERTENSION Blood Pressure : / mmHG Vent. Rate : 057 BPM Atrial Rate : 057 BPM P-R Int : 184 ms QRS Dur : 130 ms QT Int : 410 ms P-R-T Axes : 004 008 064 degrees QTc Int : 399 ms Sinus bradycardia Non-specific intra-ventricular conduction block Minimal voltage criteria for LVH, may be normal variant ( Angel product ) Nonspecific T wave abnormality Abnormal ECG When compared with ECG of 24-JUL-2021 21:39, No significant change was found Referred By: Generic ED Physician Electronically Signed By:Marlon Conte
[2021-08-04 21:16] VITALS: BP 194/85; PULSE 66; RESP 18; TEMP 36.8; O2SAT 99; BMI 31.6
[2021-08-04 21:39] LABS: Basophils Percent Auto 0.4 % (0-2); Eosinophils Absolute Auto 0.1 X10*3/uL (0.0-0.4); Eosinophils Percent Auto 0.7 % (0-4); Hematocrit 42.1 % (42.0-52.0); Hemoglobin 13.4 g/dl (14.0-18.0); Imm Gran Abs Auto 0.02 X10*3/uL (0.00-0.03); Imm Gran Pct Auto 0.2 % (0.0-0.4); Lymphocytes Absolute Auto 2.9 X10*3/uL (1.2-4.9); Lymphocytes Percent Auto 32.1 % (20-40); MANUAL DIFF FLAG NO; Mean Corpuscular HGB Conc 31.8 g/dl (31.0-36.0); Mean Corpuscular Hemoglobin 27.3 pg (27.0-33.0); Mean Corpuscular Volume 85.9 fL (80.0-98.0); Mean Platelet Volume 9.9 fL (9.4-12.4); Monocytes Absolute Auto 0.6 X10*3/uL (0.1-1.2); Monocytes Percent Auto 7.1 % (2-11); Neutrophils Absolute Auto 5.4 x10*3/uL (2.0-8.3); Neutrophils Percent Auto 59.5 % (45-73); Platelet Count 244 X10*3/uL (160-400); Red Cell Distribution Width 13.9 % (11.0-16.0)
[2021-08-04 21:55] LABS: Alanine Aminotransferase 22 U/L (0-40); Albumin Level 4.3 g/dL (3.5-5.0); Alkaline Phosphatase 89 U/L (39-117); Anion Gap 12 (12-20); Aspartate Amino Transferase 22 U/L (5-37); Bilirubin Total 0.4 mg/dL (0.0-1.0); Blood Urea Nitrogen 18 mg/dL (9-16); Calcium 10.4 mg/dL (8.4-10.2); Carbon Dioxide 30 mmol/L (22-29); Chloride 100 mmol/L (96-108); Creatinine Clr Calc Pharmacy 53.6; Estimated Glomerular Filt Rate 45; Glucose Random 112 mg/dL (60-115); Potassium 4.3 mmol/L (3.3-5.1); Sodium 138 mmol/L (135-145); Total Protein 7.9 g/dL (6.5-8.0)
[2021-08-04 21:58] LABS: Troponin-I High Sensitivity 13.4 ng/L (<3.5-35.0)
[2021-08-05 03:29] VITALS: BP 165/57; PULSE 83; RESP 16; O2SAT 99
[2021-08-05 05:30] VITALS: BP 142/71; PULSE 50; RESP 18; TEMP 36.3; O2SAT 100
--- NOTE | 2021-08-05 06:06 | ED.GENADULT ---
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 Patient states that when he use is 2-5 mg tablets he feels good, but when he uses 1-10 mg tablet of Norvasc he feels dizzy. Patient states that he stopped taking the 10 mg tablet and took his blood pressure as usual last night and noted that it was very elevated up into the 200s. Patient states that he was not having any symptoms of dizziness, headache, chest pain, shortness of breath, but he wanted to come into the emergency room to get his medication changed. Related Data Previous Rx's Medication Instructions Recorded amlodipine 10 mg tablet (Norvasc) 10 mg PO DAILY #30 tab 03/22/20 hydrochlorothiazide 25 mg tablet 25 mg PO DAILY #14 tab 08/05/21 Allergies Allergy/AdvReac Type Severity Reaction Status Date / Time No Known Allergies Allergy Verified 05/02/20 22:58 [No Known Allergies*] Review of Systems Review of Systems: Pertinent positives and negatives as stated in HPI 10 point review of systems is otherwise negative. PMFSH Past Medical History Source: nursing notes reviewed Medical History Diabetes 1.5, managed as type 2 Hypertension Social History Social History Alcohol intake: never Advance Directives: No Advance Directives Information Provided: No Physical Exam ED Vital Signs: Vital Signs - 24 hr 08/04/21 21:16 08/05/21 03:29 08/05/21 05:30 Temperature 98.3 F 97.3 F Pulse Rate 66 83 50 Respiratory Rate 18 16 18 Blood Pressure 194/85 H 165/57 H 142/71 H Pulse Oximetry 99 99 100 BMI result Body Mass Index 31.6 VITAL SIGNS: Reviewed. GENERAL: Well developed, well nourished, in no acute distress. HEAD: Normocephalic/atraumatic EYES: PERRLA, EOMI EARS: Ext canals without abnormality OROPHARYNX: no oral lesions noted, posterior pharynx clear LUNGS: Normal breath sounds. No adventitious sounds or accessory muscle use. SpO2<99> CARDIOVASCULAR: Regular rate and rhythm without noted murmurs, no JVD or lower extremity edema. ABDOMEN: Soft, non-tender, non-distended with bowel sounds. MUSCULOSKELETAL: No tenderness, deformities, or effusions noted on gross inspection. EXTREMITIES: No cyanosis, clubbing or edema. SKIN: Inspection of the skin reveals no rashes NEUROLOGIC: Alert and oriented x 4. Strength and sensation to light touch were grossly intact x 4, cranial nerves 2-12 are grossly intact Course Course Course Narrative: 71-year-old male with history and clinical presentation of chronic hypertension that is otherwise completely asymptomatic. On review of all investigations it appears that patient has no acute findings on comparison to prior lab work. Patient was questioned how many 5 mg tablets that he has and he states that he has enough for 2 days and he was strongly encouraged to at a minimum take the 2-5 mg tablets for improved blood pressure control. Medical Decision Making Lab Data Result diagrams: 08/04/21 21:25 08/04/21 21:25 Labs: Lab Results 08/04/21 08/04/21 08/04/21 Range/Units 21:25 21:25 21:25 WBC 9.0 (4.8-10.8) X10*3/uL RBC 4.90 (4.60-5.80) X10*6/uL Hgb 13.4 L (14.0-18.0) g/dl Hct 42.1 (42.0-52.0) % MCV 85.9 (80.0-98.0) fL MCH 27.3 (27.0-33.0) pg MCHC 31.8 (31.0-36.0) g/dl RDW 13.9 (11.0-16.0) % Plt Count 244 (160-400) X10*3/uL MPV 9.9 (9.4-12.4) fL Immature Gran % (Auto) 0.2 (0.0-0.4) % Neut % (Auto) 59.5 (45-73) % Lymph % (Auto) 32.1 (20-40) % [place] % (Auto) 7.1 (2-11) % Eos % (Auto) 0.7 (0-4) % Baso % (Auto) 0.4 (0-2) % Lymph # (Auto) 2.9 (1.2-4.9) X10*3/uL [place] # (Auto) 0.6 (0.1-1.2) X10*3/uL Eos # (Auto) 0.1 (0.0-0.4) X10*3/uL Baso # (Auto) 0.0 (0.0-0.2) X10*3/uL Abs Immat Gran (auto) 0.02 (0.00-0.03) X10*3/uL Absolute Neuts (auto) 5.4 (2.0-8.3) x10*3/uL Absolute Nucleated RBC 0.000 (0.0-0.012) X10*3/uL Nucleated RBC % (auto) 0.0 (0.0-0.2) /100WBC Sodium 138 (135-145) mmol/L Potassium 4.3 D (3.3-5.1) mmol/L Chloride 100 (96-108) mmol/L Carbon Dioxide 30 H (22-29) mmol/L Anion Gap 12 (12-20) BUN 18 H (9-16) mg/dL Creatinine 1.52 H (0.5-1.4) mg/dL Estim Creat Clear Calc 53.6 Estimated GFR 45 Random Glucose 112 (60-115) mg/dL Calcium 10.4 H (8.4-10.2) mg/dL Total Bilirubin 0.4 (0.0-1.0) mg/dL AST 22 (5-37) U/L ALT 22 (0-40) U/L Alkaline Phosphatase 89 (39-117) U/L Troponin I High Sens 13.4 (<3.5-35.0) ng/L Total Protein 7.9 (6.5-8.0) g/dL Albumin 4.3 (3.5-5.0) g/dL ECG Data Attestation: I personally reviewed and interpreted this ECG as follows: Prior ECG tracings: available for review Interpretation: Sinus bradycardia, HR -57, no STEMI, IL/QTC are within normal limits and on comparison to prior EKG from 07/24 there are no acute changes. Discharge Plan Discharge Clinical Impression: Hypertension, CKD (chronic kidney disease) Patient Disposition: Home, Self-Care Instructions: Chronic Kidney Disease (ED), DASH Eating Plan (ED), Hypertension (ED) Additional Instructions: 1. Reanudar todos los medicamentos caseros seg?n lo prescrito. 2. Cuide bustamante consumo de hernandez. 3. Hilario un seguimiento con bustamante proveedor de atenci?n primaria el miguel por la ma?merle para reevaluar y ajustar tata medicamentos. Mientras tanto, he enviado amairani receta para un medicamento que puede proporcionar un control adicional de la presi?n arterial. Regrese a la yudith de emergencias si los s?ntomas empeoran. Prescriptions: New hydrochlorothiazide 25 mg tablet 25 mg PO DAILY Qty: 14 0RF No Action amlodipine [Norvasc] 10 mg tablet 10 mg PO DAILY Qty: 30 0RF Referrals: Lori Acevedo MD [Primary Care Provider] - Print Language: Maori
== END 2021-08-05 09:08 | disposition home or self-care (01) ==
PROVIDERS: Emergency Provider Student in an Organized Health Care Education/Training Program; PCP General Practice
DX: I12.9 Hypertensive chronic kidney disease with stage 1 through stage 4 chronic kidney disease, or unspecified chronic kidney disease (principal); Z79.899 Other long term (current) drug therapy
CPT/HCPCS: 36415; 80053; 84484; 85025; 93005; 99283

== ENCOUNTER 2022-01-06 18:02 | Emergency (ER) | payer MEDICARE, SELFPAY ==
--- NOTE | 2022-01-06 | ECG_ITS ---
Test Reason : CHEST PAIN Blood Pressure : / mmHG Vent. Rate : 058 BPM Atrial Rate : 058 BPM P-R Int : 174 ms QRS Dur : 152 ms QT Int : 422 ms P-R-T Axes : 006 054 -09 degrees QTc Int : 414 ms Sinus bradycardia Nonspecific T wave abnormality Left bundle branch block Abnormal ECG When compared with ECG of 04-AUG-2021 21:25, QRS duration has increased Nonspecific T wave abnormality now evident in Inferior leads Referred By: Generic ED Physician Electronically Signed By:MELI MARISCAL MD
[2022-01-06 19:32] VITALS: BP 171/64; PULSE 73; RESP 16; TEMP 36.4; O2SAT 100; BMI 31.5
[2022-01-06 20:17] LABS: MANUAL DIFF FLAG NO
[2022-01-06 20:18] LABS: Basophils Absolute Auto 0.1 X10*3/uL (0.0-0.2); Basophils Percent Auto 0.5 % (0-2); Eosinophils Absolute Auto 0.1 X10*3/uL (0.0-0.4); Eosinophils Percent Auto 1.4 % (0-4); Hematocrit 43.4 % (42.0-52.0); Hemoglobin 13.7 g/dl (14.0-18.0); Imm Gran Abs Auto 0.02 X10*3/uL (0.00-0.03); Imm Gran Pct Auto 0.2 % (0.0-0.4); Lymphocytes Absolute Auto 2.5 X10*3/uL (1.2-4.9); Lymphocytes Percent Auto 25.9 % (20-40); Mean Corpuscular HGB Conc 31.6 g/dl (31.0-36.0); Mean Corpuscular Hemoglobin 27.3 pg (27.0-33.0); Mean Corpuscular Volume 86.6 fL (80.0-98.0); Mean Platelet Volume 9.9 fL (9.4-12.4); Monocytes Absolute Auto 0.8 X10*3/uL (0.1-1.2); Monocytes Percent Auto 8.1 % (2-11); Neutrophils Absolute Auto 6.1 x10*3/uL (2.0-8.3); Neutrophils Percent Auto 63.9 % (45-73); Platelet Count 241 X10*3/uL (160-400); Red Blood Count 5.01 X10*6/uL (4.60-5.80); Red Cell Distribution Width 13.8 % (11.0-16.0); White Blood Count 9.5 X10*3/uL (4.8-10.8)
[2022-01-06 20:37] LABS: Troponin-I High Sensitivity 11.4 ng/L (<3.5-35.0)
[2022-01-06 21:00] VITALS: BP 154/99; PULSE 55; RESP 17; TEMP 36.8; O2SAT 99
[2022-01-06 21:36] LABS: Alanine Aminotransferase 20 U/L (0-40); Albumin Level 4.5 g/dL (3.5-5.0); Alkaline Phosphatase 103 U/L (39-117); Anion Gap 15 (12-20); Aspartate Amino Transferase 20 U/L (5-37); Bilirubin Total 0.3 mg/dL (0.0-1.0); Blood Urea Nitrogen 14 mg/dL (9-16); Calcium 10.3 mg/dL (8.4-10.2); Carbon Dioxide 28 mmol/L (22-29); Chloride 101 mmol/L (96-108); Creatinine Clr Calc Pharmacy 60.8; Estimated Glomerular Filt Rate 54; Glucose Random 95 mg/dL (60-115); Potassium 3.7 mmol/L (3.3-5.1); Sodium 140 mmol/L (135-145); Total Protein 8.2 g/dL (6.5-8.0)
--- NOTE | 2022-01-06 22:02 | ED.CHESTPAIN ---
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 Patient been having left-sided chest pain since woke up this morning at 09:00, pain is described as localized left-sided chest pain that has been intermittent last for about few minutes then go way, no aggravating factor, no relieving factor, patient checked his blood pressure found to be high, patient is taking a prescribed blood pressure medication supposedly 3 times a day patient cut himself to 2 times a day without consulting his doctor. Patient currently has no chest pain, no SOB. Related Data Previous Rx's Medication Instructions Recorded amlodipine 10 mg tablet (Norvasc) 10 mg PO DAILY #30 tabs 03/22/20 hydrochlorothiazide 25 mg tablet 25 mg PO DAILY #14 tabs 08/05/21 Allergies Allergy/AdvReac Type Severity Reaction Status Date / Time No Known Allergies Allergy Verified 05/02/20 22:58 [No Known Allergies*] Review of Systems Review of Systems: All other systems are reviewed and are negative Constitutional: Reports as per HPI and Reports no additional constitutional complaints Eyes: Reports as per HPI and Reports no additional eye complaints Reports system reviewed and no additional complaints, except as documented Cardiovascular: Reports as per HPI and Reports no additional cardiovascular complaints Respiratory: Reports as per HPI and Reports no additional respiratory complaints Gastrointestinal: Reports as per HPI and Reports no additional gastrointestinal complaints Genitourinary: Reports no additional female genitourinary complaints Musculoskeletal: Reports no additional musculoskeletal complaints Skin/Breast: Reports system reviewed and no additional complaints, except as docu Psychiatric: Reports no additional psychiatric complaints Endocrine: Reports no additional endocrine complaints Hematologic/Lymphatic: Reports no additional hematologic/lymphatic complaints Allergic/Immunologic: Reports no additional allergic/immunologic complaints Reports system reviewed and no additional complaints, except as documented and Reports Abnormal speech present [facility] Past Medical History Medical History Diabetes 1.5, managed as type 2 Hypertension Social History Social History Alcohol intake: former Patient Tobacco Use Status: Former Tobacco user Smoked in Last 30 Days: No Use of substances other than those prescribed or required for medical reasons: No Advance Directives: No Advance Directives Information Provided: No Physical Exam Vital Signs: Vital Signs: Last Vital Signs Temp 98.3 F 01/06/22 21:00 Pulse 55 01/06/22 21:00 Resp 17 01/06/22 21:00 BP 154/99 H 01/06/22 21:00 Pulse Ox 99 01/06/22 21:00 O2 Del Method 01/06/22 21:00 BMI result Body Mass Index 31.5 Vital signs have been reviewed as appeared to be correct. Blood pressure normal. Heart rate normal. Respiration rate normal. Temperature normal. Oxygen saturation normal. Appearance: Alert. Oriented X3. No acute distress. Head: Normal external exam. Normocephalic. Atraumatic. No Peck signs noted. No raccoon eyes noted Eyes: PERRLA. EOMI. Conjunctiva and sclera normal. Eyelids normal. ENT: TM's Normal. Pharynx normal. Uvula midline. Moist mucous membranes. No trismus noted. No drooling noted. No muffled voice noted. Neck: Normal inspection. Neck supple. FROM. No adenopathy. Thyroid Normal. No meningeal signs. No neck mass noted. CVS: Normal heart rate and rhythm. Heart sound normal. No murmurs noted. Pulses normal throughout. Respiratory: No respiratory distress. Painless inspiration. Breath sounds normal. No wheezes/rales/rhonchi noted. Chest nontender. No accessory muscle usage noted or decreased air movement noted. Abdomen: Soft and nontender. Bowel sounds normal in all 4 quadrants. No distention noted. No organomegaly noted. No visible injury noted. Back: No CVA tenderness. Full range of motion noted. Skin: Skin warm and dry. Normal skin color. Normal skin turgor. No rashes/lesions/lacerations noted. Extremities: No lower extremity edema. Extremities exhibit normal range of motion. Extremities nontender. Neuro: Oriented X 3. Cranial nerve exam: II-XII are grossly intact No motor deficit. No sensory deficit. Reflexes normal. Course Course Course Narrative: 71-year-old male history of hypertension who self decreased his dosage of blood pressure that is prescribed by his PCP, patient also was complaining of chest pain for the past 12 hours, has a negative high sensitive troponin, his EKG is unremarkable, history is not consistent with ACS. Patient was instructed to comply with his blood pressure medication as prescribed by his primary doctor. Will discharge and follow up with his PCP. MDM - Chest Pain Lab Data Attestation: I reviewed the patient's lab results. Result diagrams: 01/06/22 20:12 01/06/22 20:12 Labs: Lab Results 01/06/22 01/06/22 01/06/22 Range/Units 20:12 20:12 20:12 WBC 9.5 (4.8-10.8) X10*3/uL RBC 5.01 (4.60-5.80) X10*6/uL Hgb 13.7 L (14.0-18.0) g/dl Hct 43.4 (42.0-52.0) % MCV 86.6 (80.0-98.0) fL MCH 27.3 (27.0-33.0) pg MCHC 31.6 (31.0-36.0) g/dl RDW 13.8 (11.0-16.0) % Plt Count 241 (160-400) X10*3/uL MPV 9.9 (9.4-12.4) fL Immature Gran % (Auto) 0.2 (0.0-0.4) % Neut % (Auto) 63.9 (45-73) % Lymph % (Auto) 25.9 (20-40) % [place] % (Auto) 8.1 (2-11) % Eos % (Auto) 1.4 (0-4) % Baso % (Auto) 0.5 (0-2) % Lymph # (Auto) 2.5 (1.2-4.9) X10*3/uL [place] # (Auto) 0.8 (0.1-1.2) X10*3/uL Eos # (Auto) 0.1 (0.0-0.4) X10*3/uL Baso # (Auto) 0.1 (0.0-0.2) X10*3/uL Abs Immat Gran (auto) 0.02 (0.00-0.03) X10*3/uL Absolute Neuts (auto) 6.1 (2.0-8.3) x10*3/uL Absolute Nucleated RBC 0.000 (0.0-0.012) X10*3/uL Nucleated RBC % (auto) 0.0 (0.0-0.2) /100WBC Sodium 140 (135-145) mmol/L Potassium 3.7 (3.3-5.1) mmol/L Chloride 101 (96-108) mmol/L Carbon Dioxide 28 (22-29) mmol/L Anion Gap 15 (12-20) BUN 14 (9-16) mg/dL Creatinine 1.30 (0.5-1.4) mg/dL Estim Creat Clear Calc 60.8 Estimated GFR 54 Random Glucose 95 (60-115) mg/dL Calcium 10.3 H (8.4-10.2) mg/dL Total Bilirubin 0.3 (0.0-1.0) mg/dL AST 20 (5-37) U/L ALT 20 (0-40) U/L Alkaline Phosphatase 103 (39-117) U/L Troponin I High Sens 11.4 (<3.5-35.0) ng/L Total Protein 8.2 H (6.5-8.0) g/dL Albumin 4.5 (3.5-5.0) g/dL ECG Data ECG #1: Attestation: I personally reviewed and interpreted this ECG as follows: Interpretation: Sinus bradycardia at 58 beats per minutes, normal intervals, unspecified intra-ventricular conduction block, LVH, no change from previous EKG Discharge Plan Discharge Clinical Impression: Hypertension, Chest pain Patient Disposition: Home, Self-Care Instructions: Chest Pain (ED) Prescriptions: No Action amlodipine [Norvasc] 10 mg tablet 10 mg PO DAILY Qty: 30 0RF hydrochlorothiazide 25 mg tablet 25 mg PO DAILY Qty: 14 0RF Referrals: Lori Acevedo MD [Primary Care Provider] -
[2022-01-06 22:22] VITALS: BP 139/8; PULSE 55; RESP 12; TEMP 36.8; O2SAT 99
== END 2022-01-06 22:24 | disposition home or self-care (01) ==
PROVIDERS: Emergency Provider Emergency Medicine; PCP General Practice
DX: R07.9 Chest pain, unspecified (principal); I10 Essential (primary) hypertension; E13.9 Other specified diabetes mellitus without complications
CPT/HCPCS: 36415; 80053; 84484; 85025; 93005; 99283; 99284

== ENCOUNTER 2022-05-24 23:31 | Emergency (ER) | payer MEDICARE, SELFPAY ==
[2022-05-24 23:52] VITALS: BP 174/78; PULSE 63; RESP 16; TEMP 36.7; O2SAT 97; BMI 35.1
[2022-05-25 01:01] VITALS: BP 148/85; PULSE 55; RESP 16; O2SAT 96
--- NOTE | 2022-05-25 01:03 | PC.NURSE ---
Pt A&Ox4, Salvadorean speaking, denies any pain, reports that he ran out of his BP meds for 3 days, got a refill today and took one dose and BP is still high, reports he had a headache now resolved. Denies CP, palpitation or SOB.
--- NOTE | 2022-05-25 01:50 | ED.GENADULT ---
HPI - General Adult General Chief complaint: General Medical Stated complaint: High Blood Pressure Time Seen by Provider: 05/25/22 01:33 Source: patient Mode of arrival: ambulatory Limitations: no limitations History of Present Illness HPI narrative: Patient history of hypertension on lisinopril missed his medications for 3 days to the tablet earlier today and at 21:30 checked blood pressure was 180/105 prior to take his medication on arrival blood pressure was 174/78 repeat was 162/84. Patient denies any other complaints does have medication at home no chest pain or shortness of breath usual blood pressure is well controlled when he was taking his medications Related Data Previous Rx's Medication Instructions Recorded amlodipine 10 mg tablet (Norvasc) 10 mg PO DAILY #30 tabs 03/22/20 hydrochlorothiazide 25 mg tablet 25 mg PO DAILY #14 tabs 08/05/21 Allergies Allergy/AdvReac Type Severity Reaction Status Date / Time No Known Allergies Allergy Verified 05/02/20 22:58 [No Known Allergies*] Review of Systems Review of Systems: Constitutional : No Weight loss, No Fever, No Chills ENT/Mouth : No sore throat, No Rhinorrhea Eyes: No Eye Pain, No Swelling Cardiovascular : No Chest Pain, no palpitations Respiratory : No Cough, No Sputum, no shortness of breath Gastrointestinal : no Nausea, No Vomiting, No Diarrhea, No abdominal Pain, no black stools Genitourinary : No Dysuria, No Urinary Frequency Musculoskeletal : No joint pain, No Myalgias, No Joint Swelling Skin : No Skin Lesions, No rash Neuro : No Weakness, No Numbness, No Dizziness, No Headache Psych : No Anxiety/Panic, No Depression Heme/Lymph: No Bruising, No Lymphadenopathy Endocrine : No Polyuria, No Polydipsia All other systems reviewed and are negative Yes all other systems are reviewed and are negative [facility] Past Medical History Medical History Diabetes 1.5, managed as type 2 Hypertension Social History Social History Alcohol intake: former Patient Tobacco Use Status: Former Tobacco user Smoked in Last 30 Days: No Use of substances other than those prescribed or required for medical reasons: No Advance Directives: No Advance Directives Information Provided: No Physical Exam ED Vital Signs: Vital Signs - 24 hr 05/24/22 23:52 05/25/22 01:01 05/25/22 02:00 Temperature 98.1 F Pulse Rate 63 55 Respiratory Rate 16 16 Blood Pressure 174/78 H 148/85 H 162/84 H Pulse Oximetry 97 96 Oxygen Delivery Method Room Air Room Air BMI result Body Mass Index 35.1 Appearance: Alert. Oriented X3. No acute distress. Eyes: PERRLA, No Nystagmus ENT: Pharynx normal. Oral Mucosa moist Neck: Normal inspection. Neck supple. CVS: Normal heart rate and rhythm. Pulses normal. Respiratory: No respiratory distress. Equal air entry bilateral, no wheezing/rales/rhonchi Abdomen: Soft and nontender. Bowel sounds are present, no mass palpable, no CVA tenderness Skin: Skin warm and dry. Normal skin color. Normal skin turgor. Extremities: No lower extremity edema. No calf tenderness Neuro: Oriented X 3. No motor deficit. No sensory deficit.No cerebellar signs , cranial nerves II-XII intact Medical Decision Making Medical Decision Making MDM Narrative: Patient with history of chronic essential hypertension came for increased blood pressure after he missed 3 days of his meds, blood pressure well controlled now advised to continue his lisinopril and reinforce about the compliance to take the medication daily Discharge Plan Discharge Clinical Impression: Hypertension Patient Disposition: Home, Self-Care Instructions: Chronic Hypertension (ED) Additional Instructions: Taking medication on time Check blood pressure before taking medicine and before going to bed it should be less than 135/85 Follow with PCP Toyin la medicaci?n a tiempo Verifique la presi?n arterial antes de toyin medicamentos y antes de acostarse debe ser inferior a 135/85 Seguir con PCP Prescriptions: No Action amlodipine [Norvasc] 10 mg tablet 10 mg PO DAILY Qty: 30 0RF hydrochlorothiazide 25 mg tablet 25 mg PO DAILY Qty: 14 0RF Interventions: ED Discharge Assessment Last Done: 05/25/22 02:10 Discharge Date/Time: 05/25/22 02:10 Print Language: Sami
[2022-05-25 02:00] VITALS: BP 162/84
== END 2022-05-25 02:10 | disposition home or self-care (01) ==
PROVIDERS: Emergency Provider Internal Medicine; PCP General Practice
DX: I10 Essential (primary) hypertension (principal); Z79.899 Other long term (current) drug therapy
CPT/HCPCS: 99282; 99283; 99284

== ENCOUNTER 2022-10-11 17:00 | Emergency (ER) | payer MEDICARE, SELFPAY ==
--- NOTE | ~2022-10-11 | XR_ITS ---
EXAMINATION: XR CHEST CLINICAL INFORMATION: Chest pain. COMPARISON: Chest radiograph 04/12/2020. TECHNIQUE: 2 views of the chest were obtained. FINDINGS: Stable appearance of the cardiomediastinal silhouette. Similar asymmetric lucency of the right lateral costophrenic angle. No focal airspace opacity, pleural effusion or pneumothorax. No acute osseous findings. Size upper abdomen is within normal limits. XR/XR chest 2V IMPRESSION: No acute cardiopulmonary findings.
--- NOTE | ~2022-10-11 | CT_ITS ---
EXAMINATION: CT ANGIOGRAM HEAD CT ANGIOGRAM NECK CLINICAL INFORMATION: Headache, right arm numbness COMPARISON: CT head 12/07/2015 TECHNIQUE: Initial noncontrast cabin cleaning supervisor imaging of the head and neck was performed. Noncontrast head CT was also performed. Test bolus sequences followed by intravenous administration 70 mL of Omnipaque 350. Helical imaging was performed in the axial plane from the aortic arch to the skull vertex. Delayed postcontrast imaging of the head was also performed. The data was processed at the engineering technologist's workstation for generation of MIP sequences. Angled MIPs and volume rendered reformatted images were also generated at an offline 3D workstation. Stenoses are assessed in accordance with Bergeron et al. Quantification of Carotid Stenosis on CT Angiography. AJR 2006. 27(1):13-19. This CT examination was performed using dose optimization techniques as appropriate, variously including the following: *Automated exposure control *Adjustment of mA and/or kV according to patient size (this includes techniques or standardized protocols for targeted exams where dose is matched to indication/reason for exam; i.e. extremities or head) *Use of iterative reconstruction technique DLP: 2267 mGy-cm FINDINGS: CT HEAD: Mild generalized parenchymal volume loss. Stable patchy periventricular and deep white matter hypoattenuation is nonspecific but most suggestive of mild chronic microangiopathy. Redemonstrated chronic left basal ganglia lacunar infarcts. No territorial loss of warren-white differentiation. No acute intracranial hemorrhage or extra-axial fluid collection. No mass lesion, significant mass effect, or herniation pattern. No pathologic intra-axial enhancement or regional oligemia. Apparent symmetric fusiform enlargement of the right greater than left lateral rectus muscles (image 24, series 24). Opacification of the single right anterior ethmoid air cell. Otherwise the paranasal sinuses and mastoid air cells are well aerated. Osseous structures are intact. CTA HEAD: There is diffuse atheromatous luminal irregularity and stenoses throughout the anterior and posterior circulation. Atheromatous disease of the intradural vertebral arteries with severe focal stenosis of the distal left vertebral artery near the vertebrobasilar confluence. Severe segmental stenoses along the left NAPHTHALENE OPERATOR HELPER complex. Mild to moderate stenoses along the right NAPHTHALENE OPERATOR HELPER complex. Calcific plaque along the carotid siphons contributes to moderate bilateral supraclinoid ICA stenosis. Segmental tandem short segment occlusive stenoses of the left distal M1 MCA (image 86, series 11) with reconstituted contrast opacification of M2 branches and oligemia in the left MCA territory. Severe stenosis of the right M1 MCA. No aneurysms and no high flow vascular malformations. Timing of the contrast bolus allows assessment of the major dural venous sinuses, which all opacify normally CTA NECK: Possible contrast bolus timing compromises diagnostic assessment. Increased diameter of the main pulmonary artery measuring up to 3.3 cm which may be seen in the setting of chronic pulmonary hypertension. The left common carotid artery arising from the brachiocephalic trunk and the left vertebral artery arises directly from the aortic arch. Mild atherosclerotic calcifications of the aortic arch. Origins of the great vessels appear patent. Partially calcified eccentric fibrofatty plaque mildly narrows the proximal left common carotid artery. The right common carotid artery is patent. Partially calcified atheromatous plaque bilateral carotid bifurcations contributing to approximately 84-86% luminal narrowing of the proximal right internal carotid artery, noting beam hardening artifact from calcific plaque limits assessment of luminal patency. There is up to 57-62% total narrowing of the proximal left internal carotid artery. Atherosclerosis contributes to suspected moderate left vertebral artery origin stenosis. Nondiagnostic assessment of the left greater than right V1 and proximal V2 vertebral arteries with normal opacification distally. CT NECK: Edentulous maxillary alveolus. 1.3 cm soft tissue nodule along the posterior inferior left lobe of the thyroid gland which may reflect a exophytic thyroid nodule, parathyroid adenoma, or enlarged lymph node. The visualized lung apices and upper mediastinum are within normal limits. Multilevel cervical spondylosis. CT/CT angio head neck IMPRESSION: 1. No acute intracranial hemorrhage or edematous territorial infarction. 2. Two segmental tandem short segment occlusive stenoses of the left distal M1 MCA with reconstituted contrast opacification of M2 branches and oligemia in the left MCA territory. 3. Severe stenoses of the right M1 MCA, distal left intradural vertebral artery at the left vertebrobasilar confluence, and along the left NAPHTHALENE OPERATOR HELPER complex. 4. Partially calcified atheromatous plaque at the bilateral carotid bifurcations contributing to up to 84-86% luminal narrowing of the proximal right internal carotid artery and 57-62% narrowing of the proximal left internal carotid artery. 5. Suspected moderate left vertebral artery origin stenosis, noting beam hardening artifact limits assessment of the proximal cervical vasculature. 6. Increased diameter of the main pulmonary artery measuring up to 3.3 cm which may be seen in the setting of chronic pulmonary hypertension. 7. 1.3 cm soft tissue nodule along the posterior inferior left lobe of the thyroid gland which may reflect a exophytic thyroid nodule, parathyroid adenoma, or enlarged lymph node and could be further assessed with thyroid ultrasound. 8. Apparent symmetric fusiform enlargement of the right greater than left lateral rectus muscles (image 24, series 24) which would be better diagnostically assessed with contrast-enhanced MRI of the orbits. IgG4-related orbital disease amongst other etiologies may have this imaging appearance. Findings were communicated to Dr. Trivedi on 10/12/2022 at 2:40 AM.
--- NOTE | 2022-10-11 17:02 | ECG_ITS ---
Test Reason : CP Blood Pressure : / mmHG Vent. Rate : 061 BPM Atrial Rate : 061 BPM P-R Int : 180 ms QRS Dur : 136 ms QT Int : 400 ms P-R-T Axes : 039 -12 047 degrees QTc Int : 402 ms Normal sinus rhythm Incomplete Left bundle branch block Abnormal ECG When compared with ECG of 06-JAN-2022 19:41, No significant changes seen Referred By: Generic ED Physician Electronically Signed By:MANUEL ARIAS
[2022-10-11 17:06] VITALS: BP 167/83; PULSE 65; RESP 14; TEMP 36.7; O2SAT 96; BMI 30.7
--- NOTE | 2022-10-11 17:06 | ED.GENADULT ---
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 The arm was never weak or numb. He had no other symptoms. He denies overuse or being able to make the arm more painful. He states the arm is not tingling now and he has pain 2/10. He came in 24 hours later as he notes that he was worried that he could have had a stroke and didn't want to ignore it. MD complaint: R arm pain Onset (ago): day(s) (1) Location: right and upper extremity Radiation: neck Severity: moderate Quality: stabbing and sharp Pain Consistency: intermittent Relieving factors: none Exacerbating factors: none Associated symptoms: other (reports tingling) Treatments prior to arrival: none Related Data Previous Rx's Medication Instructions Recorded amlodipine 10 mg tablet (Norvasc) 10 mg PO DAILY #30 tabs 03/22/20 hydrochlorothiazide 25 mg tablet 25 mg PO DAILY #14 tabs 08/05/21 Allergies Allergy/AdvReac Type Severity Reaction Status Date / Time No Known Allergies Allergy Verified 05/02/20 22:58 [No Known Allergies*] Review of Systems Review of Systems: Constitutional : No Fever, No Chills, No Fatigue ENT/Mouth : No sore throat, No Rhinorrhea Eyes: No Eye Pain, No Swelling, No Redness Cardiovascular : No Chest Pain, No SOB, No Dyspnea on Exertion Respiratory : No Cough, No Sputum Gastrointestinal : No Nausea, No Vomiting, No Diarrhea, No abdominal Pain Genitourinary : No Dysuria, No Urinary Frequency, No Hematuria, Musculoskeletal : No joint pain, No Myalgias, No Joint Swelling, pos extremity pain Skin : No Skin Lesions, No rash Neuro : No Weakness, No Numbness, No Dizziness, positive Headache, pos parasthesias Psych : No Anxiety/Panic, No Depression All other systems reviewed and are negative [facility] Past Medical History Attestation statement: The following information was validated with the patient. Medical History Diabetes 1.5, managed as type 2 Hypertension Social History Social History Alcohol intake: former Patient Tobacco Use Status: Former Tobacco user Use of substances other than those prescribed or required for medical reasons: No Advance Directives: No Advance Directives Information Provided: No Physical Exam ED Vital Signs: Vital Signs - 24 hr 10/11/22 17:06 Temperature 98.1 F Pulse Rate 65 Respiratory Rate 14 Blood Pressure 167/83 H Pulse Oximetry 96 Oxygen Delivery Method Room Air BMI result Body Mass Index 30.7 Appearance: Alert. Oriented X3. No acute distress. Eyes: Pupils equal, round and reactive to light. ENT: Pharynx normal. Neck: Normal inspection. Neck supple. negative spurlings sign CVS: Normal heart rate and rhythm. Pulses normal. Respiratory: No respiratory distress. Breath sounds normal. Abdomen: Soft and non-tender. Skin: Skin warm and dry. Normal skin color. Normal skin turgor. Extremities: No lower extremity edema. No calf ttp Neuro: Oriented X 3. No motor deficit. No sensory deficit. NIH Stroke Scale Internal: Initial- Upon Arrival Level of Consciousness: Alert Level of Consciousness Questions: Answers both questions correctly Level of Consciousness Commands: Performs both tasks correctly Best Gaze: Normal Visual: No visual loss Facial Palsy: Normal Motor Arm (Right): No drift Motor Arm (Left): No drift Motor Leg (Right): No drift Motor Leg (Left): No drift Limb Ataxia: Absent Sensory: Normal Best Language: No aphasia Dysarthia: Normal Extinction and Inattention: No abnormality Score: 0 Course Course Course Narrative: This is a rapid medical exam: Additional HPI, ROS, PE not included below will be deferred to primary provider. Patient is a 72-year-old male with history of DM, CVA, and HTN presenting to the emergency department with complaint of right arm pain radiating to chest since yesterday. Reports intermittent shortness of breath. Patient hypertensive in triage, states he took his medicine today. Plan: EKG, labs, CXR Reevaluation(s) Reevaluation #1: signed out to Dr. Trivedi pending CTA Medications Administered Discontinued Medications Generic Name Dose Route Start Last Admin Trade Name Freq PRN Reason Stop Dose Admin Aspirin 325 mg 10/12/22 02:43 10/12/22 03:46 Aspirin 325 Mg Tablet PO 10/12/22 02:44 Not Given ONCE ONE Iohexol 70 ml 10/12/22 01:49 10/12/22 01:49 Iohexol 350 Mg/Ml 100 Ml Infus..Btl IV 10/12/22 01:50 70 ml ONCE ONE Administration Medical Decision Making Medical Decision Making [facility] Narrative: 72 yo male with hx of DM and HTN here with c/o resolved R arm pain and tingling but without weakness or numbness he woke up with pins and needles that have resolved but still has intermittent pain in R arm - he is NV intact no deficits on exam I cannot make his neck pain on exam - at this time it is unlikely that he has cervical radiculopathy I am going to obtain basic labs, EKG - doubt ACS atypical. I have ordered CTA head and neck he has mostly pain which would be unusual for TIA/stroke he has no deficits now and his tingling felt like pins and needles and he had no numbness or weakness and he woke up with symptoms and pain so it seems more compressive in nature and not TIA. Differential Diagnosis Differential Diagnoses: The differential diagnosis associated with the presentation includes cervical radiculopathy, neuropathy, compression, strain, TIA Lab Data [facility] Lab Attestation statement: I reviewed the patient's lab results. 10/11/22 18:53 10/11/22 18:53 Labs: Lab Results 10/11/22 10/11/22 10/11/22 Range/Units 18:53 18:53 18:53 WBC 9.4 (4.8-10.8) X10*3/uL RBC 4.89 (4.60-5.80) X10*6/uL Hgb 13.3 L (14.0-18.0) g/dl Hct 41.9 L (42.0-52.0) % MCV 85.7 (80.0-98.0) fL MCH 27.2 (27.0-33.0) pg MCHC 31.7 (31.0-36.0) g/dl RDW 13.7 (11.0-16.0) % Plt Count 252 (160-400) X10*3/uL MPV 9.7 (9.4-12.4) fL Immature Gran % (Auto) 0.2 (0.0-0.4) % Neut % (Auto) 63.8 (45-73) % Lymph % (Auto) 26.7 (20-40) % [place] % (Auto) 8.0 (2-11) % Eos % (Auto) 0.9 (0-4) % Baso % (Auto) 0.4 (0-2) % Lymph # (Auto) 2.5 (1.2-4.9) X10*3/uL [place] # (Auto) 0.8 (0.1-1.2) X10*3/uL Eos # (Auto) 0.1 (0.0-0.4) X10*3/uL Baso # (Auto) 0.0 (0.0-0.2) X10*3/uL Abs Immat Gran (auto) 0.02 (0.00-0.03) X10*3/uL Absolute Neuts (auto) 6.0 (2.0-8.3) x10*3/uL Absolute Nucleated RBC 0.000 (0.0-0.012) X10*3/uL Nucleated RBC % (auto) 0.0 (0.0-0.2) /100WBC PT 11.9 (11.1-13.3) SEC INR 1.0 (0.9-1.1) Sodium 140 (135-145) mmol/L Potassium 3.7 (3.3-5.1) mmol/L Chloride 103 (96-108) mmol/L Carbon Dioxide 25 (22-29) mmol/L Anion Gap 16 (12-20) BUN 15 (9-16) mg/dL Creatinine 1.41 H (0.5-1.4) mg/dL Estim Creat Clear Calc 56.1 Estimated GFR 49 Random Glucose 94 (60-115) mg/dL Calcium 10.5 H (8.4-10.2) mg/dL Total Bilirubin 0.3 (0.0-1.0) mg/dL AST 19 (5-37) U/L ALT 19 (0-40) U/L Alkaline Phosphatase 90 (39-117) U/L Troponin I High Sens (<3.5-35.0) ng/L Total Protein 8.0 (6.5-8.0) g/dL Albumin 4.2 (3.5-5.0) g/dL 10/11/22 Range/Units 18:53 WBC (4.8-10.8) X10*3/uL RBC (4.60-5.80) X10*6/uL Hgb (14.0-18.0) g/dl Hct (42.0-52.0) % MCV (80.0-98.0) fL MCH (27.0-33.0) pg MCHC (31.0-36.0) g/dl RDW (11.0-16.0) % Plt Count (160-400) X10*3/uL MPV (9.4-12.4) fL Immature Gran % (Auto) (0.0-0.4) % Neut % (Auto) (45-73) % Lymph % (Auto) (20-40) % [place] % (Auto) (2-11) % Eos % (Auto) (0-4) % Baso % (Auto) (0-2) % Lymph # (Auto) (1.2-4.9) X10*3/uL [place] # (Auto) (0.1-1.2) X10*3/uL Eos # (Auto) (0.0-0.4) X10*3/uL Baso # (Auto) (0.0-0.2) X10*3/uL Abs Immat Gran (auto) (0.00-0.03) X10*3/uL Absolute Neuts (auto) (2.0-8.3) x10*3/uL Absolute Nucleated RBC (0.0-0.012) X10*3/uL Nucleated RBC % (auto) (0.0-0.2) /100WBC PT (11.1-13.3) SEC INR (0.9-1.1) Sodium (135-145) mmol/L Potassium (3.3-5.1) mmol/L Chloride (96-108) mmol/L Carbon Dioxide (22-29) mmol/L Anion Gap (12-20) BUN (9-16) mg/dL Creatinine (0.5-1.4) mg/dL Estim Creat Clear Calc Estimated GFR Random Glucose (60-115) mg/dL Calcium (8.4-10.2) mg/dL Total Bilirubin (0.0-1.0) mg/dL AST (5-37) U/L ALT (0-40) U/L Alkaline Phosphatase (39-117) U/L Troponin I High Sens 9.6 (<3.5-35.0) ng/L Total Protein (6.5-8.0) g/dL Albumin (3.5-5.0) g/dL Independent Interpretation I performed an independent interpretation of an: EKG, Plain X-Ray (normal ) and CT Scan Interpretation: Rate: 61 Rhythm: NSR [place]: left Normal P waves. Normal RELL. LBBB ST T wave : normal no JENNYFER qTC: normal prior studies: no acute ischemia The study has been interpreted contemporaneously by me. . Radiology Impression Discussion of test interpretation with radiology: I have reviewed the radiologist's reading. External Record Review External record reviewed: Inpatient record and Prior outpatient labs Chronic Conditions Patient?s care impacted by: Hypertension Discharge Plan Discharge Clinical Impression: Arm pain, Arm paresthesia, right Patient Disposition: Home, Self-Care Instructions: Paresthesia (ED), Arm Pain (ED) Additional Instructions: Follow with Neurology Continue aspirin and Plavix Prescriptions: No Action amlodipine [Norvasc] 10 mg tablet 10 mg PO DAILY Qty: 30 0RF hydrochlorothiazide 25 mg tablet 25 mg PO DAILY Qty: 14 0RF Interventions: ED Discharge Assessment Last Done: 10/12/22 03:46 Discharge Date/Time: 10/12/22 03:48
[2022-10-11 18:57] LABS: MANUAL DIFF FLAG NO
[2022-10-11 19:02] LABS: Basophils Percent Auto 0.4 % (0-2); Eosinophils Absolute Auto 0.1 X10*3/uL (0.0-0.4); Eosinophils Percent Auto 0.9 % (0-4); Hematocrit 41.9 % (42.0-52.0); Hemoglobin 13.3 g/dl (14.0-18.0); Imm Gran Abs Auto 0.02 X10*3/uL (0.00-0.03); Imm Gran Pct Auto 0.2 % (0.0-0.4); Lymphocytes Absolute Auto 2.5 X10*3/uL (1.2-4.9); Lymphocytes Percent Auto 26.7 % (20-40); Mean Corpuscular HGB Conc 31.7 g/dl (31.0-36.0); Mean Corpuscular Hemoglobin 27.2 pg (27.0-33.0); Mean Corpuscular Volume 85.7 fL (80.0-98.0); Mean Platelet Volume 9.7 fL (9.4-12.4); Monocytes Absolute Auto 0.8 X10*3/uL (0.1-1.2); Neutrophils Percent Auto 63.8 % (45-73); Platelet Count 252 X10*3/uL (160-400); Red Blood Count 4.89 X10*6/uL (4.60-5.80); Red Cell Distribution Width 13.7 % (11.0-16.0); White Blood Count 9.4 X10*3/uL (4.8-10.8)
[2022-10-11 19:24] LABS: Alanine Aminotransferase 19 U/L (0-40); Albumin Level 4.2 g/dL (3.5-5.0); Alkaline Phosphatase 90 U/L (39-117); Anion Gap 16 (12-20); Aspartate Amino Transferase 19 U/L (5-37); Bilirubin Total 0.3 mg/dL (0.0-1.0); Blood Urea Nitrogen 15 mg/dL (9-16); Calcium 10.5 mg/dL (8.4-10.2); Carbon Dioxide 25 mmol/L (22-29); Chloride 103 mmol/L (96-108); Creatinine Clr Calc Pharmacy 56.1; Estimated Glomerular Filt Rate 49; Glucose Random 94 mg/dL (60-115); Potassium 3.7 mmol/L (3.3-5.1); Sodium 140 mmol/L (135-145)
[2022-10-11 19:31] LABS: Troponin-I High Sensitivity 9.6 ng/L (<3.5-35.0)
[2022-10-11 19:40] LABS: Prothrombin Time 11.9 SEC (11.1-13.3)
--- NOTE | 2022-10-12 | PC.NURSE ---
Iv started in left ac, notified Heide Faulkner.
[2022-10-12] MEDS: iohexoL 350 MG/ML 100 ML INFUS..BTL 70 ML IV (01:49)
--- NOTE | 2022-10-12 03:05 | PC.NURSE ---
pt ambulates with steady gait to and from bathroom no apparent distress
[2022-10-12 03:45] VITALS: BP 135/63; PULSE 81; RESP 18; O2SAT 97
== END 2022-10-12 03:48 | disposition home or self-care (01) ==
PROVIDERS: Registered Nurse Emergency; Emergency Provider Emergency Medicine; PCP General Practice
DX: M79.601 Pain in right arm (principal); R20.2 Paresthesia of skin
CPT/HCPCS: 36415; 70496; 70498; 71046; 80053; 84484; 85025; 85610; 93005; 99284; Q9967

== ENCOUNTER → 2022-10-11 17:02 | Outpatient (BNV) | payer MEDICARE, SELFPAY | PROVIDERS: Emergency Provider Emergency Medicine; PCP General Practice; Visit Provider Internal Medicine | DX: R94.31 Abnormal electrocardiogram [ECG] [EKG] (principal); R07.9 Chest pain, unspecified | CPT/HCPCS: 93010 ==

== ENCOUNTER 2023-01-27 08:44 | Outpatient (REF) | payer MEDICARE, SELFPAY ==
[2023-01-27 12:01] LABS: Creatinine Urine 141.34 mg/dL; Microalbum/Creatinine Ratio Ur 31.1 ug/mg cr (<30)
[2023-01-27 12:21] LABS: Anion Gap 10 (12-20); Blood Urea Nitrogen 15 mg/dL (9-16); Carbon Dioxide 31 mmol/L (22-29); Chloride 103 mmol/L (96-108); Estimated Glomerular Filt Rate 59; Glucose Random 186 mg/dL (60-115); Potassium 3.4 mmol/L (3.3-5.1); Sodium 141 mmol/L (135-145)
[2023-01-28 04:25] LABS: ~HepC Num1 0.93 S/CO (0.00-0.79)
[2023-01-28 05:05] LABS: ~HepC Num2 0.88; ~HepC Num3 0.85; ~Hepatitis C Antibody GRAYZONE (Nonreactive)
== END 2023-01-27 08:45 | disposition home or self-care (01) ==
LOC: HO.HHCL 08:44
PROVIDERS: Visit Provider General Practice
DX: E11.22 Type 2 diabetes mellitus with diabetic chronic kidney disease (principal); N18.30 Chronic kidney disease, stage 3 unspecified
CPT/HCPCS: 36415; 80048; 82043; 82570; 86803

== ENCOUNTER 2023-05-30 18:19 | Emergency (ER) | payer MEDICARE, SELFPAY ==
[2023-05-30 18:42] VITALS: BP 170/73; PULSE 63; RESP 16; TEMP 36.6; O2SAT 98; BMI 30.3
--- NOTE | 2023-05-30 18:45 | ED.GENADULT ---
HPI - General Adult General Chief complaint: General Medical Stated complaint: high blood pressure 175/90 Time Seen by Provider: 05/30/23 21:32 Source: patient Mode of arrival: ambulatory Limitations: no limitations History of Present Illness HPI narrative: Patient history of hypertension on amlodipine and hydralazine fairly compliant noticed blood pressure 174/90 denied any stress patient had extra salt earlier today no chest pain no shortness a breath not taking any NSAID denies any headache no nausea no vomiting Related Data Previous Rx's Medication Instructions Recorded amlodipine 10 mg tablet (Norvasc) 10 mg PO DAILY #30 tabs 03/22/20 hydrochlorothiazide 25 mg tablet 25 mg PO DAILY #14 tabs 08/05/21 Allergies Allergy/AdvReac Type Severity Reaction Status Date / Time No Known Allergies Allergy Verified 05/02/20 22:58 [No Known Allergies*] Review of Systems Review of Systems: Yes all other systems are reviewed and are negative [facility] Past Medical History Medical History Diabetes 1.5, managed as type 2 Hypertension Social History Social History Alcohol intake: former Patient Tobacco Use Status: Former Tobacco user Smoked in Last 30 Days: No Use of substances other than those prescribed or required for medical reasons: No Advance Directives: No Advance Directives Information Provided: No Physical Exam ED Vital Signs: Vital Signs - 24 hr 05/30/23 18:42 05/30/23 21:45 05/30/23 22:36 Temperature 98 F 96.8 F 97.2 F Pulse Rate 63 62 56 Respiratory Rate 16 16 18 Blood Pressure 170/73 H 159/80 H 159/78 H Pulse Oximetry 98 98 96 Oxygen Delivery Method Room Air Room Air Room Air BMI result Body Mass Index 30.3 Appearance: Alert. Oriented X3. No acute distress. Eyes: PERRLA, No Nystagmus ENT: Pharynx normal. Oral Mucosa moist Neck: Normal inspection. Neck supple. CVS: Normal heart rate and rhythm. Pulses normal. Respiratory: No respiratory distress. Equal air entry bilateral, no wheezing/rales/rhonchi Abdomen: Soft and nontender. Bowel sounds are present, no mass palpable, no CVA tenderness Skin: Skin warm and dry. Normal skin color. Normal skin turgor. Extremities: No lower extremity edema. No calf tenderness Neuro: Oriented X 3. No motor deficit. No sensory deficit.No cerebellar signs , cranial nerves II-XII intact Course Course Course Narrative: This is a rapid medical exam: Additional HPI, ROS, PE not included below will be deferred to primary provider. Concerns for hypertension with intermittent headache. No headache at this time. Takes medications for HTN and states he has been compliant with his medications. Medical Decision Making Medical Decision Making [facility] Narrative: Patient with slightly elevated blood pressure likely from poor diet control already on medication transient advised data as needed for elevated blood pressure Differential Diagnosis Differential Diagnoses: The differential diagnosis associated with the presentation includes Discharge Plan Discharge Clinical Impression: Hypertension Patient Disposition: Home, Self-Care Instructions: Chronic Hypertension (ED) Additional Instructions: Continue medication as prescribed for blood pressure If blood pressure still stay elevated you may increase the dose of hydralazine to 1 and half tablets 3 times a day Normal blood pressure should be less than 135/85 Follow with your procurement assistant Prescriptions: No Action amlodipine [Norvasc] 10 mg tablet 10 mg PO DAILY Qty: 30 0RF hydrochlorothiazide 25 mg tablet 25 mg PO DAILY Qty: 14 0RF Interventions: ED Discharge Assessment Last Done: 05/30/23 22:36 Discharge Date/Time: 05/30/23 22:47 Print Language: Macedonian
[2023-05-30 21:45] VITALS: BP 159/80; PULSE 62; RESP 16; TEMP 36; O2SAT 98
[2023-05-30 22:36] VITALS: BP 159/78; PULSE 56; RESP 18; TEMP 36.2; O2SAT 96
== END 2023-05-30 22:47 | disposition home or self-care (01) ==
PROVIDERS: Emergency Provider Internal Medicine; PCP General Practice
DX: I10 Essential (primary) hypertension (principal); Z79.899 Other long term (current) drug therapy
CPT/HCPCS: 99283; 99284

== ENCOUNTER 2023-10-01 09:30 | Outpatient (REF) | payer MEDICARE, SELFPAY ==
[2023-10-01 12:18] LABS: Anion Gap 11 (12-20); Blood Urea Nitrogen 11 mg/dL (9-16); Calcium 10.3 mg/dL (8.4-10.2); Carbon Dioxide 28 mmol/L (22-29); Chloride 104 mmol/L (96-108); Cholesterol 115 mg/dL (<200); Estimated Glomerular Filt Rate > 60; Glucose Random 117 mg/dL (60-115); HDL Cholesterol 44 mg/dL (>40); LDL Cholesterol Calculated 59 mg/dL (<100); Potassium 3.8 mmol/L (3.3-5.1); Sodium 139 mmol/L (135-145); Triglycerides 60 mg/dL (<150)
[2023-10-02 04:54] LABS: ~HepC Num1 0.69 S/CO (0.00-0.79); ~Hepatitis C Antibody Nonreactive (Nonreactive)
== END 2023-10-01 09:31 | disposition home or self-care (01) ==
LOC: HO.HHCL 09:30
PROVIDERS: Visit Provider General Practice
DX: N18.30 Chronic kidney disease, stage 3 unspecified (principal); Z11.59 Encounter for screening for other viral diseases
CPT/HCPCS: 36415; 80048; 80061; 86803

== ENCOUNTER 2024-01-05 18:31 | Emergency (ER) | payer MEDICARE, SELFPAY ==
--- NOTE | ~2024-01-05 | XR_ITS ---
EXAMINATION: XR HIP, RIGHT CLINICAL INFORMATION: Pain. COMPARISON: CT abdomen/pelvis dated 08/04/2014. TECHNIQUE: AP view of the pelvis as well as AP and frog-leg lateral views of the right hip. FINDINGS: No acute fracture or dislocation. Mild right hip joint space with marginal osteophytes. No concerning lytic or blastic osseous lesion. No evidence of femoral head avascular necrosis. Mild left hip joint space narrowing with small marginal osteophytes. Partially visualized degenerative disc disease and facet arthropathy in the lower lumbar spine. XR/XR hip RT w PEL1V IMPRESSION: 1. Mild right and left hip osteoarthritis. 2. Partially visualized degenerative disc disease and facet arthropathy in the lower lumbar spine. Electronically signed by: Rigoberto Alfonso MD 01/05/2024 09:11 PM EDT
--- NOTE | ~2024-01-05 | XR_ITS ---
EXAMINATION: XR LUMBOSACRAL SPINE CLINICAL INFORMATION: Lower back pain. COMPARISON: Lumbar spine radiographs dated 09/20/2019. TECHNIQUE: Three views of the lumbosacral spine. FINDINGS: Normal vertebral body alignment. The lumbar lordosis is maintained. No acute fracture or subluxation. Multilevel loss of intervertebral disc height with endplate osteophytes. No new loss of vertebral body height. Lower lumbar spine facet arthropathy. Overall, findings are similar when compared to the prior examination. Atherosclerotic calcifications. Moderate stool burden. XR/XR lumbar spine 2-3V IMPRESSION: Multilevel degenerative disc disease and lower lumbar spine facet arthropathy, similar when compared to the prior examination. Electronically signed by: Rigoberto Alfonso MD 01/05/2024 09:06 PM EDT
[2024-01-05 19:01] VITALS: BP 166/77; PULSE 60; RESP 18; TEMP 36.6; O2SAT 99; BMI 29.5
--- NOTE | 2024-01-05 19:01 | ED_ITS ---
HPI - Extremity Injury (Lower) General Chief Complaint: Extremity Injury, Lower Stated Complaint: hip pain Time Seen by Provider: 01/05/24 20:29 Source: patient, RN notes reviewed, old records reviewed and furniture crater Mode of arrival: ambulatory Limitations: language barrier History of Present Illness ED Provider: Leyda POSADA Narrative: 73-year-old male presents for evaluation of atraumatic right hip pain Patient reports that his pain started 2 days ago when he woke up. He denies any excessive activity, falls. He denies any back pain. His pain does not radiate but is only present when walking His pain is 12/17 Related Data Previous Rx's ?Medication ?Instructions ?Recorded amlodipine 10 mg tablet (Norvasc) 10 mg PO DAILY #30 tabs 03/22/20 hydrochlorothiazide 25 mg tablet 25 mg PO DAILY #14 tabs 08/05/21 ibuprofen 600 mg tablet 600 mg PO Q6H PRN pain #20 tabs 01/05/24 Allergies Allergy/AdvReac Type Severity Reaction Status Date / Time No Known Allergies Allergy Verified 01/05/24 19:03 [No Known Allergies*] Review of Systems Constitutional: Constitutional: Denies body ache(s), Denies chills, Denies fever(s) and Denies headache(s) Eyes: Eyes: Denies blurry vision ENT: Denies headache(s) Cardiovascular: Cardiovascular: Denies chest pain and Denies dyspnea Respiratory: Respiratory: Denies cough and Denies dyspnea Gastrointestinal: Gastrointestinal: Denies abdominal pain Musculoskeletal: Musculoskeletal: Reports arthralgias, Reports joint swelling and Reports limited range of motion Integumentary/Breasts: Skin/Breast: Denies rash Neurologic: Denies headache(s) [facility] Past Medical History Medical History Diabetes 1.5, managed as type 2 Hypertension Social History Social History Alcohol intake: former Patient Tobacco Use Status: Former Tobacco user Advance Directives: No Advance Directives Information Provided: No Do you have a plan to hurt others: No Plan Physical Exam Vital Signs: Vital Signs: Last Vital Signs Temp 97.6 F 01/05/24 21:15 Pulse 67 01/05/24 21:15 Resp 18 01/05/24 21:15 BP 152/79 H 01/05/24 21:15 Pulse Ox 99 01/05/24 21:15 O2 Del Method Room Air 01/05/24 21:15 BMI result Body Mass Index 29.5 Const: General: healthy appearing, comfortable, no acute distress, alert and awake Nutritional Appearance: well nourished Orientation/consciousness: patient oriented x3 HEENT: Head: Yes normocephalic and Yes atraumatic Eyes: Eyelids: Yes eyelids normal Conjunctivae: conjunctivae normal Sclerae: sclerae normal Corneas: corneas normal Pupils: Equal, round and reactive pupils present EOM: EOMs intact bilaterally Neck: Neck: Yes full ROM Resp: Effort & Inspection: normal respiratory effort, able to speak in complete sentences and not labored Back/Spine/Pelvis: Other: No vertebral or paravertebral tenderness Skin: General skin exam: elasticity normal Neuro: General: patient oriented x3 Cranial nerves: Yes Equal, round and reactive pupils present and Yes Bilaterally intact EOM present Cognition (Neuro): normal cognition Extrem: Other: Mild right hip tenderness. Negative straight leg raise Course Course Course Narrative: This is a Rapid Medical Exam performed in triage by Ciarra Pack PA-C. Full HPI, ROS and PE to be performed by primary ED provider. 73-year-old male with a past medical history of diabetes, hypertension, presenting to the ED c/o right sided hip pain pinched nerve x2 days waking up from sleep. Pain hurts when sitting, standing and ambulating. PE: Ambulating with antalgic gait with cane. Plan: XRs Medications Administered Discontinued Medications Generic Name Dose Route Start Last Admin Trade Name Ronnellq PRN Reason Stop Dose Admin Ketorolac Tromethamine 30 mg 01/05/24 20:49 01/05/24 20:55 Ketorolac Tromethamine 30 Mg/Ml Vial IM 01/05/24 20:50 30 mg ONCE ONE Administration Medical Decision Making Medical Decision Making [facility] Narrative: 73-year-old male presents for evaluation of atraumatic right hip pain, x-ray shows osteoarthritis. He has no back pain. No GI or symptoms. Plan for symptomatic treatment Differential Diagnosis Differential Diagnoses: The differential diagnosis associated with the presentation includes Osteoarthritis Hip bursitis Sciatica Back pain Hip pain Independent Interpretation I performed an independent interpretation of an: Plain X-Ray Radiology Impression Discussion of test interpretation with radiology: I have reviewed the radiologist's reading. Radiologist Impression: FINDINGS: No acute fracture or dislocation. Mild right hip joint space with marginal osteophytes. No concerning lytic or blastic osseous lesion. No evidence of femoral head avascular necrosis. Mild left hip joint space narrowing with small marginal osteophytes. Partially visualized degenerative disc disease and facet arthropathy in the lower lumbar spine. XR/XR hip RT w PEL1V IMPRESSION: 1. Mild right and left hip osteoarthritis. 2. Partially visualized degenerative disc disease and facet arthropathy in the lower lumbar spine. Electronically signed by: Rigoberto Alfonso MD 01/05/2024 09:11 PM EDT RP Discharge Plan Discharge Clinical Impression: Acute pain of right hip Patient Disposition: Home, Self-Care Instructions: Hip Pain (ED) Additional Instructions: Your x-rays show arthritis of your back and hip Use ibuprofen as needed for pain. Follow-up with your primary doctor, return for new or worsening symptom Prescriptions: New ibuprofen 600 mg tablet 600 mg PO Q6H PRN (Reason: pain) Qty: 20 0RF No Action amlodipine [Norvasc] 10 mg tablet 10 mg PO DAILY Qty: 30 0RF hydrochlorothiazide 25 mg tablet 25 mg PO DAILY Qty: 14 0RF Interventions: ED Discharge Assessment Last Done: 01/05/24 21:15 Discharge Date/Time: 01/05/24 21:22 Print Language: [place]
[2024-01-05] MEDS: Ketorolac Tromethamine 30 MG/ML VIAL IM (20:55)
[2024-01-05 21:15] VITALS: BP 152/79; PULSE 67; RESP 18; TEMP 36.4; O2SAT 99
== END 2024-01-05 21:22 | disposition home or self-care (01) ==
PROVIDERS: Emergency Provider Emergency Medicine; PCP General Practice
DX: M25.551 Pain in right hip (principal); Z79.899 Other long term (current) drug therapy
CPT/HCPCS: 72100; 73502; 96372; 99283; 99284; J1885

== ENCOUNTER 2024-06-18 20:11 | Emergency (ER) | payer OTHER, SELFPAY ==
--- NOTE | 2024-06-18 20:13 | ED_ITS ---
HPI - General Adult General Chief complaint: General Medical Stated complaint: high blood pressure Time Seen by Provider: 06/18/24 21:08 Source: patient Mode of arrival: ambulatory Limitations: no limitations History of Present Illness ED Provider: HPI narrative: Patient with history of hypotension seen the perinatal technician yesterday was taking amlodipine 10 mg and lisinopril 20 mg which was increased to 40 mg by the perinatal technician yesterday today he came as blood pressure was elevated to 185/90 at home became anxious on arrival patient's blood pressure was 175/64 repeat was 159/81 no chest pain no headache no nausea no vomiting Related Data Previous Rx's ?Medication ?Instructions ?Recorded amlodipine 10 mg tablet (Norvasc) 10 mg PO DAILY #30 tabs 03/22/20 hydrochlorothiazide 25 mg tablet 25 mg PO DAILY #14 tabs 08/05/21 ibuprofen 600 mg tablet 600 mg PO Q6H PRN pain #20 tabs 01/05/24 Allergies Allergy/AdvReac Type Severity Reaction Status Date / Time No Known Allergies Allergy Verified 06/18/24 20:17 [No Known Allergies*] Review of Systems 2 Review of Systems: Yes all other systems are reviewed and are negative PMFSH Past Medical History Medical History Diabetes 1.5, managed as type 2 Hypertension Social History Social History Alcohol intake: former Patient Tobacco Use Status: Former Tobacco user Advance Directives: No Advance Directives Information Provided: Yes Do you have a plan to hurt others: No Plan Physical Exam ED Vital Signs: Vital Signs - 24 hr 06/18/24 20:15 06/18/24 21:43 Temperature 98.9 F 98.9 F Pulse Rate 65 61 Respiratory Rate 16 16 Blood Pressure 175/64 H 159/81 H Pulse Oximetry 99 99 Oxygen Delivery Method Room Air Room Air BMI result Body Mass Index 30.5 Appearance: Alert. Oriented X3. No acute distress. Eyes: PERRLA, No Nystagmus ENT: Pharynx normal. Oral Mucosa moist Neck: Normal inspection. Neck supple. CVS: Normal heart rate and rhythm. Pulses normal. Respiratory: No respiratory distress. Equal air entry bilateral, no wheezing/rales/rhonchi Abdomen: Soft and nontender. Bowel sounds are present, no mass palpable, no CVA tenderness Skin: Skin warm and dry. Normal skin color. Normal skin turgor. Extremities: No lower extremity edema. No calf tenderness Neuro: Oriented X 3. No motor deficit. No sensory deficit.No cerebellar signs , cranial nerves II-XII intact Course Course Course Narrative: This is an RME performed by Clive Ramirez, HEAD GOLF PROFESSIONAL: Additional HPI, ROS, PE not included below will be deferred to primary provider. Patient is a 74-year-old male who presents emergency department for evaluation of elevated blood pressure reading reports 200/90s at home. Routinely checks blood pressure twice a day. States he has been compliant with hydrochlorothiazide, lisinopril, carvedilol. Denies headache, dizziness, vision changes, chest pain shortness of breath. Plan: Serum labs, urinalysis Medical Decision Making Medical Decision Making MDM Narrative: Patient with history of hypertension recently increase the dose of lisinopril from 20-40 mg yesterday by perinatal technician patient's became anxious when blood pressure was elevated repeat blood pressure in the ER was 159/81 patient advised to continue same medication follow up with perinatal technician and decrease salt intake Lab Data [facility] Lab Attestation statement: I reviewed the patient's lab results. 06/18/24 20:22 06/18/24 20:22 Labs: Lab Results 06/18/24 Range/Units 20:22 WBC 9.2 (4.8-10.8) X10*3/uL RBC 4.82 (4.60-5.80) X10*6/uL Hgb 13.1 L (14.0-18.0) g/dl Hct 40.7 L (42.0-52.0) % MCV 84.4 (80.0-98.0) fL MCH 27.2 (27.0-33.0) pg MCHC 32.2 (31.0-36.0) g/dl RDW 13.7 (11.0-16.0) % Plt Count 237 (160-400) X10*3/uL MPV 9.1 L (9.4-12.4) fL Immature Gran % (Auto) 0.2 (0.0-0.4) % Neut % (Auto) 62.7 (45-73) % Lymph % (Auto) 27.3 (20-40) % [place] % (Auto) 7.9 (2-11) % Eos % (Auto) 1.4 (0-4) % Baso % (Auto) 0.5 (0-2) % Lymph # (Auto) 2.5 (1.2-4.9) X10*3/uL [place] # (Auto) 0.7 (0.1-1.2) X10*3/uL Eos # (Auto) 0.1 (0.0-0.4) X10*3/uL Baso # (Auto) 0.1 (0.0-0.2) X10*3/uL Abs Immat Gran (auto) 0.02 (0.00-0.03) X10*3/uL Absolute Neuts (auto) 5.8 (2.0-8.3) x10*3/uL Absolute Nucleated RBC 0.000 (0.0-0.012) X10*3/uL Nucleated RBC % (auto) 0.0 (0.0-0.2) /100WBC Sodium 139 (135-145) mmol/L Potassium 3.9 (3.3-5.1) mmol/L Chloride 104 (96-108) mmol/L Carbon Dioxide 27 (22-29) mmol/L Anion Gap 12 (12-20) BUN 18 H (9-16) mg/dL Creatinine 1.19 (0.5-1.4) mg/dL Estim Creat Clear Calc 64.3 Estimated GFR 60 Random Glucose 99 (60-115) mg/dL Calcium 9.6 D (8.4-10.2) mg/dL Total Bilirubin 0.3 (0.0-1.0) mg/dL AST 29 (5-37) U/L ALT 25 (0-40) U/L Alkaline Phosphatase 90 (39-117) U/L Total Protein 7.5 (6.5-8.0) g/dL Albumin 4.1 (3.5-5.0) g/dL Discharge Plan Discharge Clinical Impression: Hypertension Patient Disposition: Home, Self-Care Instructions: Chronic Hypertension (DC) Additional Instructions: Decrease salt intake Continue take your amlodipine 10 mg daily and lisinopril which was increased to 40 mg daily yesterday Follow with your PCP Prescriptions: No Action amlodipine [Norvasc] 10 mg tablet 10 mg PO DAILY Qty: 30 0RF hydrochlorothiazide 25 mg tablet 25 mg PO DAILY Qty: 14 0RF ibuprofen 600 mg tablet 600 mg PO Q6H PRN (Reason: pain) Qty: 20 0RF Interventions: ED Discharge Assessment Last Done: 06/18/24 21:43 Discharge Date/Time: 06/18/24 21:43 Print Language: Citizen [place]
[2024-06-18 20:15] VITALS: BP 175/64; PULSE 65; RESP 16; TEMP 37.2; O2SAT 99; BMI 30.5
[2024-06-18 20:26] LABS: MANUAL DIFF FLAG NO
[2024-06-18 20:27] LABS: Basophils Absolute Auto 0.1 X10*3/uL (0.0-0.2); Basophils Percent Auto 0.5 % (0-2); Eosinophils Absolute Auto 0.1 X10*3/uL (0.0-0.4); Eosinophils Percent Auto 1.4 % (0-4); Hematocrit 40.7 % (42.0-52.0); Hemoglobin 13.1 g/dl (14.0-18.0); Imm Gran Abs Auto 0.02 X10*3/uL (0.00-0.03); Imm Gran Pct Auto 0.2 % (0.0-0.4); Lymphocytes Absolute Auto 2.5 X10*3/uL (1.2-4.9); Lymphocytes Percent Auto 27.3 % (20-40); Mean Corpuscular HGB Conc 32.2 g/dl (31.0-36.0); Mean Corpuscular Hemoglobin 27.2 pg (27.0-33.0); Mean Corpuscular Volume 84.4 fL (80.0-98.0); Mean Platelet Volume 9.1 fL (9.4-12.4); Monocytes Absolute Auto 0.7 X10*3/uL (0.1-1.2); Monocytes Percent Auto 7.9 % (2-11); Neutrophils Absolute Auto 5.8 x10*3/uL (2.0-8.3); Neutrophils Percent Auto 62.7 % (45-73); Platelet Count 237 X10*3/uL (160-400); Red Blood Count 4.82 X10*6/uL (4.60-5.80); Red Cell Distribution Width 13.7 % (11.0-16.0); White Blood Count 9.2 X10*3/uL (4.8-10.8)
[2024-06-18 20:43] LABS: Alanine Aminotransferase 25 U/L (0-40); Albumin Level 4.1 g/dL (3.5-5.0); Alkaline Phosphatase 90 U/L (39-117); Anion Gap 12 (12-20); Aspartate Amino Transferase 29 U/L (5-37); Bilirubin Total 0.3 mg/dL (0.0-1.0); Blood Urea Nitrogen 18 mg/dL (9-16); Calcium 9.6 mg/dL (8.4-10.2); Carbon Dioxide 27 mmol/L (22-29); Chloride 104 mmol/L (96-108); Creatinine Clr Calc Pharmacy 64.3; Estimated Glomerular Filt Rate 60; Glucose Random 99 mg/dL (60-115); Potassium 3.9 mmol/L (3.3-5.1); Sodium 139 mmol/L (135-145); Total Protein 7.5 g/dL (6.5-8.0)
--- OUTSIDE RECORDS SUMMARY | 2024-06-18 21:11 | XMS_ITS | Encounter Summary ---
Author Organization [employer] Address [address] [facility] [address] [place] [address] Care Team Providers Care Industrial Equipment Wirer Name Role Phone Lori Acevedo MD Primary Care Provider [phone] Reason for Visit * Reason Comments Med Refill Encounter Details Date Type Department Care Team ([facility] st Contact Info) Description 01/17/2023 Refill [facility] MEDICINE [address] [place], [place] [phone] Lori Acevedo MD [address] [place] [address] Vitamin D deficiency Social History Tobacco Use Types Packs/Day Years Used Date Smoking Tobacco: Never Smokeless Tobacco: Never Alcohol Use Standard Drinks/Week Comments Never 0 (1 standard drink = 0.6 oz pur e alcohol) Housing Stability Answer Date Recorded What is your housing situation today? I have elan nighat 01/04/[address] you li ve. Do you have problems with any of the following? None of the above 01/04/2023 Food Insecurity Answer Date Recorded Within the past 12 months, y ou worried that your food would run out before you got money to buy more: Never True 01/04/2023 Within the past 12 months,th e food you bought just didn't last and you didn't have enough money to get more: Never True Transportation Answer Date Recorded In the past 12 months, has l ack of transportation kept you from medical appts, meetings, work or from getting things needed for daily living? Yes, it has kept me from medical appointments or getting medications. 12/19/2022 Utilities Answer Date Recorded In the past 12 months, has t he electric, gas, oil or water company threatened to shut off services in your home? No 01/04/2023 Depression Answer Date Recorded Patient Health Questionnaire-2 Score 0 08/02/2022 Sex and Gender Information Value Date Recorded Sex Assigned at Male 01/07/2022 10:15 AM EDT Legal Sex Male 10:15 AM EDT Gender Identity Male 01/07/2022 10:15 AM EDT Sexual Orientation Straight 01/07/2022 10 :15 AM EDT documented as of this encounter Plan of Treatment Not on file documented as of this encounter Visit Diagnoses Diagnosis Vitamin D deficiency documented in this encounter Care Teams Industrial Equipment Wirer Relationship Specialty Start Date End Date Lori Acevedo MD [address] [place] [address] PCP - General Family Medicine 02/16/20 documented as of this encounter
--- OUTSIDE RECORDS SUMMARY | 2024-06-18 21:11 | XMS_ITS | Encounter Summary ---
Author Organization [employer] Address [address] [facility] [address] [place] [address] Care Team Providers Care Sheet Folder Name Role Phone Lori Acevedo MD Primary Care Provider [phone] Encounter Details Date Type Department Care Team (Late st Contact Info) Description 08/07/2022 Orders Only [facility] MEDICINE [address] [place], [place] [phone] Lori Acevedo MD [address] [place], [place] [phone] Social History Tobacco Use Types Packs/Day Years Used Date Smoking Tobacco: Never Smokeless Tobacco: Never Alcohol Use Standard Drinks/Week Comments Never 0 (1 standard drink = 0.6 oz pur e alcohol) Depression Answer Date Recorded Patient Health Questionnaire-2 Score 0 08/02/2022 Sex and Gender Information Value Date Recorded Sex Assigned at Male 01/07/2022 10:15 AM EDT Legal Sex Male 10:15 AM EDT Gender Identity Male 01/07/2022 10:15 AM EDT Sexual Orientation Straight 01/07/2022 10 :15 AM EDT COVID-19 Exposure Response Date Recorded In the last 10 days, have yo u been in contact with someone who was confirmed or suspected to have Coronavirus/COVID-19? No / Unsure 08/02/2022 9:02 AM EDT documented as of this encounter Plan of Treatment Not on file documented as of this encounter Visit Diagnoses Not on filedocumented in this encounter Care Teams Sheet Folder Relationship Specialty Start Date End Date Lori Acevedo MD [address] [place] [phone] PCP - General Family Medicine 02/16/20 documented as of this encounter
--- OUTSIDE RECORDS SUMMARY | 2024-06-18 21:11 | XMS_ITS | Encounter Summary ---
Author Organization [employer] Address [address] [facility] 7t [place] [address] Care Team Providers Care Health Education Specialist Name Role Phone Lori Acevedo MD Primary Care Provider [phone] Encounter Details Date Type Department Care Team (Late st Contact Info) Description 04/22/2022 Orders Only [facility] MED & PEDS [address] [place] [address] Lorena Gutierrez LPN Social History Tobacco Use Types Packs/Day Years Used Date Smoking Tobacco: Never Assessed Sex and Gender Information Value Date Recorded Sex Assigned at Male 01/07/2022 10:15 AM EDT Legal Sex Male 10:15 AM EDT Gender Identity Male 01/07/2022 10:15 AM EDT Sexual Orientation Straight 01/07/2022 10 :15 AM EDT documented as of this encounter Plan of Treatment Not on file documented as of this encounter Visit Diagnoses Not on filedocumented in this encounter Care Teams Health Education Specialist Relationship Specialty Start Date End Date Lori Acevedo MD [address] [place] [id number] PCP - General Family Medicine 02/16/20 documented as of this encounter
--- OUTSIDE RECORDS SUMMARY | 2024-06-18 21:11 | XMS_ITS | Clinical Summary ---
Author Organization [facility] Address [address] [place] [address] Phone Care Team Providers Care Plumber Assistant Name Role Phone Lori Acevedo MD Primary Care Provider Allergies No known active allergies Medications aspirin (ST DIMPLE) 81 MG EC tablet Take 1 tablet by mouth 1 (one) time each day Active atorvastatin (LIPITOR) 40 MG tablet Take 1 tablet by mouth 1 (one) time each day Active carvedilol (COREG) 6.25 MG tablet Take 25 mg by mouth 1 (one) time each day Active Cholecalciferol 50 MCG (1999 UT) capsule Take 1 capsule by mouth 1 (one) time each day Active clopidogrel (Plavix) 75 MG tablet Take 1 tablet by mouth 1 (one) time each day Active ezetimibe (Zetia) 10 MG tablet Take 1 tablet by mouth 1 (one) time each day Active lisinopril-hydr oCHLOROthiazide (PRINZIDE,ZESTO RETIC) 20-12.5 MG per tablet TOME DOS TABLETAS POR V A ORAL TODOS LOS D 1 Active loratadine (Claritin) 10 MG tablet Take 1 tablet by mouth 1 (one) time each day Active metFORMIN (FORTAMET) 500 MG 24 hr tablet Take 1 tablet by mouth 2 (two) times a day Active pantoprazole (PROTONIX) 20 MG EC tablet Take 1 tablet by mouth 1 (one) time each day Active amLODIPine (NORVASC) 5 MG tablet TOME VICTOR M TABLETA POR V A ORAL A DIARIO 1 Active docusate sodium (COLACE) 100 MG capsule TAKE 1 CAPSULE BY ORAL ROUTE TWICE A DAY TO PREVENT CONSTIPATION 1 Active fluticasone (FLONASE) 50 MCG/ACT nasal spray SPRAY 2 SPRAYS INTO EACH NOSTRIL TODOS LOS D CUANDO SEA NECESARIO Active glucosamine-cho ndroitin 500-400 MG tablet Take 1 tablet by mouth 3 (three) times a day Active Active Problems Problem Noted Date Diagnosed Date Decreased renal function 05/04/2020 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 Essential hypertension 12/02/2013 Family History Medical History Relation Comments Diabetes Mother Heart disease Mother Hypertension Mother Kidney disease Mother Relation Status Comments Father Unknown Mother Unknown Social History Tobacco Use Types Packs/Day Years Used Date Smoking Tobacco: Former Smokeless Tobacco: Never Sex and Gender Information Value Date Recorded Sex Assigned at Not on file Legal Sex Male 5:21 PM EST Gender Identity Not on file Sexual Orientation Not on file Last Filed Vital Signs Vital Sign Reading Time Taken Comments Blood Pressure 140/80 10/30/2020 1:56 PM EDT Pulse 59 10/30/2020 1:56 PM EDT Temperature - - Respiratory Rate - - Oxygen Saturation 98% 10/30/2020 1:56 PM EDT Inhaled Oxygen Concentration - - Weight 100 kg (220 lb 9.6 oz) 10/30/2020 1:56 PM EDT Height 177.8 cm (5' 10 ) 04/08/2019 12:00 PM EST Body Mass Index 31.65 04/08/2019 12:00 PM EST Plan of Treatment Health Maintenance Due Date Last Done Comments Colorectal Cancer Screening: Annual FOBT 1998 Colorectal Cancer Screening: Colonoscopy 1998 Colorectal Cancer Screening: Sigmoidoscopy 1998 Pneumococcal Vaccine: 50+ Ye ars (1 of 1 - PCV) 2014 Influenza Vaccine (Season Ended) 2024 Hepatitis B Vaccine Aged Out No longe r eligible based on patient's age to complete this topic Insurance [facility] Care Teams Plumber Assistant Relationship Specialty Start Date End Date Lori Acevedo MD [address] [place] [id number] PCP - General Urgent Care 04/13/20
--- OUTSIDE RECORDS SUMMARY | 2024-06-18 21:11 | XMS_ITS | Encounter Summary ---
Author Organization [employer] Address [address] [facility] 7t [place] [address] Care Team Providers Care Private Investigator Name Role Phone Lori Acevedo MD Primary Care Provider [phone] Encounter Details Date Type Department Care Team (Late st Contact Info) Description 05/31/2022 Orders Only [facility] MED & PEDS [address] [place] [address] Lorena Gutierrez LPN Social History Tobacco Use [...] on filedocumented in this encounter Care Teams Private Investigator Relationship Specialty Start Date End Date Lori Acevedo MD [address] [place] [phone] PCP - General Family Medicine 02/16/20 documented as of this encounter
[2024-06-18 21:43] VITALS: BP 159/81; PULSE 61; RESP 16; TEMP 37.2; O2SAT 99
== END 2024-06-18 21:43 | disposition home or self-care (01) ==
PROVIDERS: Nurse Practitioner Family; Emergency Provider Internal Medicine; PCP General Practice
DX: F41.9 Anxiety disorder, unspecified (principal); I10 Essential (primary) hypertension; Z87.891 Personal history of nicotine dependence
CPT/HCPCS: 36415; 80053; 85025; 99282; 99283

== ENCOUNTER → 2024-06-29 07:29 | Outpatient (REF) | payer OTHER, SELFPAY ==
--- OUTSIDE RECORDS SUMMARY | 2024-06-29 07:31 | XMS_ITS | Encounter Summary ---
Author Organization [employer] Address [address] [facility] [address] [place] [address] Care Team Providers Care Salvage Inspector Wood [employer] Name Role Phone Lori Acevedo MD Primary Care Provider [phone] Encounter Details Date Type Department Care Team (Late st Contact Info) Description 04/22/2022 Orders Only [facility] MED & PEDS [address] [place] [address] Lorena Gutierrez LPN Social History Tobacco Use [...] on filedocumented in this encounter Care Teams Salvage Inspector Wood Parts Relationship Specialty Start Date End Date Lori Acevedo MD [address] [place] [id number] PCP - General Family Medicine 02/16/20 documented as of this encounter
--- OUTSIDE RECORDS SUMMARY | 2024-06-29 07:31 | XMS_ITS | Encounter Summary ---
Author Organization [employer] Address [address] [facility] [address] [place] [address] Care Team Providers Care Edge Gluer Name Role Phone Lori Acevedo MD Primary Care Provider [phone] Encounter Details Date Type Department Care Team (Late st Contact Info) Description 05/31/2022 Orders Only [facility] MED & PEDS [address] [place] [address] Lorena Gutierrez LPN Social History Tobacco Use [...] on filedocumented in this encounter Care Teams Edge Gluer Relationship Specialty Start Date End Date Lori Acevedo MD [address] [place] [id number] PCP - General Family Medicine 02/16/20 documented as of this encounter
--- OUTSIDE RECORDS SUMMARY | 2024-06-29 07:31 | XMS_ITS | Encounter Summary ---
Author Organization [employer] Address [address] [facility] 7t [place] [address] Care Team Providers Care Loader Semiconductor Dies Name Role Phone Lori Acevedo MD Primary Care Provider [phone] Encounter Details Date Type Department Care Team (Late st Contact Info) Description 08/07/2022 Orders Only [facility] MEDICINE [address] [place], [place] [phone] Lori Acevedo MD [address] [place], [place] [phone] Social History Tobacco Use Types Packs/Day Years [...] on filedocumented in this encounter Care Teams Loader Semiconductor Dies Relationship Specialty Start Date End Date Lori Acevedo MD [address] [place] [place] [address] [phone] PCP - General Family Medicine 02/16/20 documented as of this encounter
--- OUTSIDE RECORDS SUMMARY | 2024-06-29 07:32 | XMS_ITS | Clinical Summary ---
Author Organization [facility] Address [address] [place] [address] Phone Care Team Providers Care Register Clerk Name Role Phone Lori Acevedo MD Primary [...] Ye ars (1 of 1 - PCV) 1999 Influenza Vaccine (Season Ended) 2024 Hepatitis B Vaccine Aged Out No longe r eligible based on patient's age to complete this topic Insurance [facility] Care Teams Register Clerk Relationship Specialty Start Date End Date Lori Acevedo MD [address] [place] [id number] PCP - General Urgent Care 04/13/20
--- OUTSIDE RECORDS SUMMARY | 2024-06-29 07:32 | XMS_ITS | Encounter Summary ---
Author Organization [employer] Address [address] [facility] 7t [place] [address] Care Team Providers Care Director Of Planning Name Role Phone Lori Acevedo MD Primary Care Provider [phone] Reason for Visit * Reason Comments Med Refill Encounter Details Date Type Department Care Team ([facility] st Contact Info) Description 01/17/2023 Refill [facility] MEDICINE [address] [place], [place] [phone] Lori Acevedo MD [address] [place] [address] Vitamin D deficiency Social History Tobacco Use [...] deficiency documented in this encounter Care Teams Director Of Planning Relationship Specialty Start Date End Date Lori Acevedo MD [address] [place] [address] PCP - General Family Medicine 02/16/20 documented as of this encounter
--- NOTE | 2024-06-29 08:02 | CA_ITS ---
Transthoracic Echocardiogram Patient (Last, First, Middle): Gaurav Flores, Gender: Male Date of : 1950 Age: 74 Procedure Date: 06/29/2024 Procedure Type: Transthoracic Echocardiogram Location: OP Height: 180.34 cm Weight: 99.79 kg BSA: 2.20 m2 Heart Rate: bpm BP: 150 / 70 mmHg Supervising Architect: TO Referring MD: Lori Acevedo MD Symptoms: PALPITATIONS Study Quality: Adequate ECG Rhythm: Sinus Conclusions: - The left ventricular systolic function is normal. The calculated ejection fraction is 56% by biplane method. - There is mild calcification of the aortic valve. - There is mild mitral annular calcification. Findings Left Ventricle Normal left ventricular cavity size. There is mildly increased left ventricular wall thickness. The left ventricular systolic function is normal. The calculated ejection fraction is 56% by biplane method. There is no evidence of regional wall motion abnormalities. Evidence suggests grade I (mild) diastolic dysfunction. Right Ventricle Mildly increased right ventricular cavity size. There is normal right ventricular systolic function. Atria Mild biatrial enlargement. Aortic Valve There is a normal trileaflet aortic valve. There is mild calcification of the aortic valve. There is no aortic valve stenosis. There is no aortic valve regurgitation. Mitral Valve There is mild mitral annular calcification. There is trace mitral valve regurgitation. There is no mitral valve stenosis. Pulmonic Valve The pulmonic valve is likely normal. Tricuspid Valve There is mild tricuspid valve regurgitation. There is no evidence of pulmonary hypertension. Great Vessels The asc aorta is normal in size. Venous The inferior vena cava is normal in size and collapses greater than 50% with inspiration. Pericardium/Pleural There is a trivial pericardial effusion. Prior Study Comparison No significant change compared to prior study dated: 12/19/2006. Recommendations, Care & Conclusions No obvious valvular pathology seen on this study. Measurements 2D Linear Measurements IVSd: 1.15 0.6-0.9/0.6-1.0 cm LVIDd: 5.45 3.9-5.3/4.2-5.9 cm LVIDd Index: 2.48 2.4-3.2/2.2-3.1 cm/m2 LVIDs: 3.87 2.0-3.6 cm LVPWd: 1.09 0.7-1.1 cm LA Diam: 4.70 2.7-3.8/3.0-4.0 cm LAIDs Index: 2.14 1.5-2.3 cm/m2 LV Mass: 304.59 67-162/88-224 g LV Mass Index: 138.45 43-95/49-115 g/m2 LVOT Diam: 2.30 3.0+(-)1.3 cm 2D Systolic Function EF 4C: 55.70 >55% EF 2C: 56.60 >55% EF BiP: 55.80 >55% Mitral Valve MV Pk E: 0.87 MV PK A: 1.07 MV Decel Time: 197.00 E/A: 0.80 E'Lateral: 6.20 E'Medial: 5.11 E/E' Med: 17.10 E/E' Lat: 14.10 PHT: 58.00 MVA PHT: 3.79 Decel Brewster: 4.45 Aortic Valve AoV Pk Hamilton: 1.55 AoV Mn Hamilton: 1.10 AoV VTI: 0.34 AoV Pk Grad: 10.00 Aov Mn Grad: 5.00 FUAD Cont.VTI: 3.15 LVOT LVOT Pk Hamilton: 1.14 LVOT Mn Hamilton: 0.74 LVOT VTI: 0.26 LVOT Pk Grad: 5.00 LVOT Mn Grad: 3.00 LVOT Diam: 2.30 LVOT Area: 4.15 Diastolic Function MV Pk E: 0.87 MV Pk A: 1.07 E/A: 0.80 E'Medial: 5.11 E/E' Med: 17.10 E' Laterial: 6.20 E/E' Lat: 14.10 Right Ventricle TAPSE (mm): 22.80 TVS' Hamilton: 10.90 Tricuspid Valve TR Pk Hamilton: 2.73 TR Pk Grad: 30.00 RA Press: 3.00 RVSP: 33.00 Great Vessels Aorta Sinus of Valsalva: 3.60 2.0-3.5 cm Ao Asc: 3.60 2.1-3.4 cm Updated in Other Vendor System with Status of Final Florentino Etienne MD electronically signed on 06/29/2024 10:27:00 AM with status of Final
== END ==
LOC: HO.CARD 07:29
PROVIDERS: PCP General Practice; Visit Provider General Practice
DX: I50.9 Heart failure, unspecified (principal)
CPT/HCPCS: 93306

== ENCOUNTER → 2024-06-29 08:02 | Outpatient (BNV) | payer OTHER, SELFPAY | PROVIDERS: PCP General Practice; Visit Provider Internal Medicine | DX: R00.2 Palpitations (principal) | CPT/HCPCS: 93306 ==

== ENCOUNTER 2024-12-23 19:19 | Emergency (ER) | payer OTHER, SELFPAY ==
[2024-12-23 19:41] VITALS: BP 188/84; PULSE 59; RESP 16; TEMP 36.3; O2SAT 99; BMI 28.5
--- NOTE | 2024-12-23 19:45 | ECG_ITS ---
Test Reason : HYPERTENSION Blood Pressure : */* mmHG Vent. Rate : 58 BPM Atrial Rate : 58 BPM P-R Int : 178 ms QRS Dur : 120 ms QT Int : 402 ms P-R-T Axes : 26 -48 92 degrees QTcB Int : 394 ms Sinus bradycardia Left axis deviation Incomplete left bundle branch block Minimal voltage criteria for LVH, may be normal variant ( Angel product ) Nonspecific T wave abnormality Abnormal ECG When compared with ECG of 11-Oct-2022 17:05, QRS axis Shifted left T wave amplitude has increased in Anterior leads Referred By: Gildardo Johansen Electronically Signed By: Marlon Conte
--- NOTE | 2024-12-23 19:46 | ED_ITS ---
HPI - General Adult General Chief complaint: Recheck/Abnormal Lab/Rx Stated complaint: high bp Time Seen by Provider: 12/23/24 21:28 Source: patient Mode of arrival: ambulatory Limitations: language barrier (Public Health Technician services utilized) History of Present Illness ED Provider: Anjel CAN HPI narrative: The patient is a 74-year-old male with a history of hypertension presenting to the ED for evaluation of elevated blood pressure at home. The patient reports he checks his blood pressure on a regular basis, today noted blood pressure was elevated at 180/93. Patient denies having any headache, chest pain, or other symptoms, feels at baseline, however due to the elevated blood pressure patient presenting to the ED for evaluation. Patient did not contact his PCP prior to presenting to the ED. The patient denies any missed doses of his blood pressure medication, denies any recent changes to his blood pressure management. The patient reports he plans to contact his PCP tomorrow but came to the ED for evaluation. Related Data Previous Rx's ?Medication ?Instructions ?Recorded amlodipine 10 mg tablet (Norvasc) 10 mg PO DAILY #30 t abs 03/22/20 hydrochlorothiazide 25 mg tablet 25 mg PO DAILY #14 ta bs 08/05/21 ibuprofen 600 mg tablet 600 mg PO Q6H PRN pain #20 t abs 01/05/24 Allergies Allergy/AdvReac Type Severity Reaction Status Date / Time No Known Allergies (No Known Allergy Verified 12/23/24 19:42 Allergies*) Review of Systems 2 Review of Systems: Yes all other systems are reviewed and are negative PMFSH Past Medical History Medical History Diabetes 1.5, managed as type 2 Hypertension Social History Social History Alcohol intake: former Patient Tobacco Use Status: Former Tobacco user Advance Directives: No Advance Directives Information Provided: No Physical Exam ED Vital Signs: Vital Signs - 24 hr 12/23/24 19:41 12/23/24 20:21 12/23/24 20:53 Temperature 97.4 F Pulse Rate 59 61 60 Respiratory Rate 16 16 16 Blood Pressure 188/84 H 167/74 H 165/78 H Pulse Oximetry 99 97 96 Oxygen Delivery Method Room Air Room Air Room Air 12/23/24 21:56 Temperature 97.4 F Pulse Rate 60 Respiratory Rate 16 Blood Pressure 165/78 H Pulse Oximetry 96 Oxygen Delivery Method Room Air BMI result Body Mass Index 28.5 CONSTITUTIONAL: The patient appears non-toxic, well nourished and in no acute distress. Vital signs as documented. HEAD: Atraumatic, normocephalic. EYES: EOMs intact, pupils equal and reactive to light, conjunctiva clear, no exudate. ENT: Nares patent, no discharge. Airway patent, no audible stridor, visible mucosa is pink and moist without noted lesions. NECK: Trachea is midline, no obvious masses or gross abnormalities. CHEST: Symmetric movement, normal appearance. LUNGS: LS present and CTAB, no w/r/r. Non-labored work of breathing. CARDIAC: Regular Rhythm, S1/S2 appreciated, no murmurs, rubs or gallops. ABDOMEN: Abdomen soft and non-tender x4 quadrants, no palpable masses or organomegaly. : Deferred. EXTREMITIES: Normal tone, moves all extremities spontaneously without reported pain. No obvious acute injury or deformity noted. NEURO: Alert and oriented x3, CN II-XII intact. Cerebellar Functioning intact. Strength 5/5 x4 extremities. No sensory or motor deficits. Speech clear and appropriate. PSYCH: normal affect, appropriate eye contact, fluid speech, with appropriate response to questioning. No reported suicidality or homicidality. SKIN: Warm, dry, color appropriate, normal turgor. No rashes noted. Course Course Course Narrative: RME: 74-year-old male history of high blood pressure diabetes presents to ED for elevated blood pressure. Patient is compliant with the medication. Patient states chronic blurry vision. Patient denies any headache, slurred speech facial droop or paralysis of extremities. NIH score is 0. EKG labs ordered Medical Decision Making Medical Decision Making MDM Narrative: 9:48 PM 12/23/2024 (Xenia CAN): The patient is a 74-year-old male with a history of hypertension presenting to the ED for evaluation of elevated blood pressure at home. The patient reports he checks his blood pressure on a regular basis, today noted blood pressure was elevated at 180/93. Patient denies having any headache, chest pain, or other symptoms, feels at baseline, however due to the elevated blood pressure patient presenting to the ED for evaluation. Patient did not contact his PCP prior to presenting to the ED. The patient denies any missed doses of his blood pressure medication, denies any recent changes to his blood pressure management. The patient reports he plans to contact his PCP tomorrow but came to the ED for evaluation. In the ED the patient is well-appearing, no acute exam findings. The patient's neurologic exam is benign, no focal neurological deficit. Laboratory evaluation reveals no leukocytosis, anemia, electrolyte abnormality, or MILLIE. Patient's LFTs are unremarkable, troponin is negative, EKG is nonischemic. Given the patient's reassuring workup, nonfocal neurologic exam, and asymptomatic status, there was no indication for emergent blood pressure control or adjustment of current blood pressure medication regimen. Patient will be discharged to follow up with the PCP for re-evaluation and consideration of changes to his blood pressure meds. Admission/Observation Consideration of admission/observation: Escalation of care including admission/observation considered Lab Data MDM Lab Attestation statement: I reviewed the patient's lab results. 12/23/24 19:54 12/23/24 19:54 Labs: Lab Results 12/23/24 Range/Units 19:54 WBC 8.9 (4.8-10.8) X10*3/uL RBC 5.24 (4.60-5.80) X10*6/uL Hgb 14.1 (14.0-18.0) g/dl Hct 44.3 (42.0-52.0) % MCV 84.5 (80.0-98.0) fL MCH 26.9 L (27.0-33.0) pg MCHC 31.8 (31.0-36.0) g/dl RDW 14.3 (11.0-16.0) % Plt Count 262 (160-400) X10*3/uL MPV 9.2 L (9.4-12.4) fL Immature Gran % (Auto) 0.3 (0.0-0.4) % Neut % (Auto) 67.1 (45-73) % Lymph % (Auto) 24.3 (20-40) % [facility] % (Auto) 7.0 (2-11) % Eos % (Auto) 0.9 (0-4) % Baso % (Auto) 0.4 (0-2) % Lymph # (Auto) 2.2 (1.2-4.9) X10*3/uL [facility] # (Auto) 0.6 (0.1-1.2) X10*3/uL Eos # (Auto) 0.1 (0.0-0.4) X10*3/uL Baso # (Auto) 0.0 (0.0-0.2) X10*3/uL Abs Immat Gran (auto) 0.03 (0.00-0.03) X10*3/uL Absolute Neuts (auto) 6.0 (2.0-8.3) x10*3/uL Absolute Nucleated RBC 0.000 (0.0-0.012) X10*3/uL Nucleated RBC % (auto) 0.0 (0.0-0.2) /100WBC PT 12.1 (10.9-12.4) SEC INR 1.1 (0.9-1.1) APTT 37.0 H (26.7-34.1) SEC Sodium 141 (135-145) mmol/L Potassium 3.7 (3.3-5.1) mmol/L Chloride 107 (96-108) mmol/L Carbon Dioxide 27 (22-29) mmol/L Anion Gap 11 L (12-20) BUN 11 (9-16) mg/dL Creatinine 1.04 (0.5-1.4) mg/dL Estim Creat Clear Calc 71.3 Estimated GFR > 60 Random Glucose 82 (60-115) mg/dL Calcium 9.8 (8.4-10.2) mg/dL Total Bilirubin 0.3 (0.0-1.0) mg/dL AST 27 (5-37) U/L ALT 24 (0-40) U/L Alkaline Phosphatase 96 (39-117) U/L Troponin I High Sens 13.2 (<3.5-35.0) ng/L Total Protein 8.0 (6.5-8.0) g/dL Albumin 4.6 (3.5-5.0) g/dL Independent Interpretation I performed an independent interpretation of an: EKG (EKG shows sinus bradycardia with a rate of 58, no evidence of acute ischemia, no ST elevation, no ectopy. There is left axis deviation, as well as an old left bundle-branch block. Compared to previous on 10/11/2022 the left axis deviation is new.) External Record Review External record reviewed: Outpatient record and Prior outpatient labs Chronic Conditions Patient?s care impacted by: Hypertension Discharge Plan Discharge Clinical Impression: Hypertension Qualifiers: Hypertension type: unspecified Qualified Code(s): I10 - Essential (primary) hypertension Patient Disposition: Home, Self-Care Instructions: Hypertension (ED) Additional Instructions: Lisseth por elegir el [facility] para botello atenci?n m?dica hoy. Afortunadamente, botello evaluaci?n de laboratorio, electrocardiograma y examen de hoy no muestran evidencia de da?o en los ?rganos gregorio (cerebro, coraz?n o ri?ones) kulwant resultado de la presi?n arterial elevada que recibi? hoy en casa. En zabrina momento, no hay indicaci?n de ingreso hospitalario ni de observaci?n continua en urgencias, y es seguro darle de saba. Botello presi?n arterial estaba ligeramente elevada en urgencias; sin embargo, la cifra diast?lica se encuentra dentro de un rango razonable. Por lo tanto, no hay indicaci?n para un control urgente de botello presi?n arterial con medicamentos intravenosos en urgencias, ni para ajustar botello medicaci?n para la presi?n arterial. Contin?e tomando tata medicamentos recetados seg?n las indicaciones. Consulte con botello m?dico de cabecera para amairani reevaluaci?n, controles adicionales de la presi?n arterial, la posibilidad de ajustar la medicaci?n para la presi?n arterial, el manejo adicional de tata s?ntomas y la continuaci?n de la atenci?n preventiva. Si no tiene un m?dico de cabecera, llame a [facility] al [phone] para asignarle jong nuevo. Mientras espera la asignaci?n de botello nuevo m?dico de cabecera, puede llamar a nuestra [facility] al [phone] para necesidades que no adryan de emergencia. Regrese a urgencias si presenta un cambio repentino o grave en tata s?ntomas, fiebre superior a 38 ?C que no mejora con Tylenol o ibuprofeno, v?mitos recurrentes o cualquier otro s?ntoma o inquietud nuevo o que empeore. Thank you for choosing [facility]'s Emergency Department for your care today. Thankfully your laboratory evaluation, EKG, and exam today shows no evidence of end-organ damage to your brain, heart, or kidneys as a result of your elevated blood pressure earlier today at home. At this time there is no indication for admission to the hospital or continued ED observation, and it is safe to discharge you home. Your blood pressure was slightly elevated in the emergency department, however the bottom (diastolic) number is within a reasonable range, and as such there is no indication for emergent control of your blood pressure with IV medications in the emergency department, and no indication for adjustment of your blood pressure medication. Please continue taking your currently prescribed medications as directed. Please follow up with your primary care physician for re-evaluation, additional blood pressure checks, consideration of blood pressure medication adjustments, additional management of your symptoms, and continued preventative care. If you do not have a primary care physician, please call the [facility] at [phone] to establish a new primary care physician. While waiting to establish your new primary care physician, you can call our Walk[facility]in [facility] at [phone] for non-emergency needs. Please return to the emergency department if you develop a severe or sudden change in your symptoms, a fever over 100.4 that does not improve with Tylenol or Ibuprofen, recurrent vomiting, or any other new or worsening symptoms or concerns. Prescriptions: No Action amlodipine [Norvasc] 10 mg tablet 10 mg PO DAILY Qty: 30 0RF hydrochlorothiazide 25 mg tablet 25 mg PO DAILY Qty: 14 0RF ibuprofen 600 mg tablet 600 mg PO Q6H PRN (Reason: pain) Qty: 20 0RF Referrals: Lori Acevedo MD [Primary Care Provider, Internal Medicine] Clinical Impression: Hypertension Interventions: ED Discharge Assessment Last Done: 12/23/24 21:56 Discharge Date/Time: 12/23/24 21:57 Print Language: Bermudian
[2024-12-23 19:59] LABS: MANUAL DIFF FLAG NO
[2024-12-23 20:02] LABS: Hematocrit 44.3 % (42.0-52.0); Hemoglobin 14.1 g/dl (14.0-18.0); Imm Gran Abs Auto 0.03 X10*3/uL (0.00-0.03); Imm Gran Pct Auto 0.3 % (0.0-0.4); Lymphocytes Absolute Auto 2.2 X10*3/uL (1.2-4.9); Mean Corpuscular HGB Conc 31.8 g/dl (31.0-36.0); Mean Corpuscular Hemoglobin 26.9 pg (27.0-33.0); Mean Corpuscular Volume 84.5 fL (80.0-98.0); NRBC Abs Auto 0.000 X10*3/uL (0.0-0.012); NRBC Pct Auto 0.0 /100WBC (0.0-0.2); Platelet Count 262 X10*3/uL (160-400); Red Blood Count 5.24 X10*6/uL (4.60-5.80); White Blood Count 8.9 X10*3/uL (4.8-10.8)
[2024-12-23 20:13] LABS: INTERNATIONAL NORM RATIO 1.1 (0.9-1.1); Prothrombin Time 12.1 SEC (10.9-12.4)
[2024-12-23 20:16] LABS: Alanine Aminotransferase 24 U/L (0-40); Albumin Level 4.6 g/dL (3.5-5.0); Alkaline Phosphatase 96 U/L (39-117); Anion Gap 11 (12-20); Aspartate Amino Transferase 27 U/L (5-37); Blood Urea Nitrogen 11 mg/dL (9-16); Calcium 9.8 mg/dL (8.4-10.2); Carbon Dioxide 27 mmol/L (22-29); Chloride 107 mmol/L (96-108); Creatinine Clr Calc Pharmacy 71.3; Estimated Glomerular Filt Rate > 60; Partial Thromboplastin Time 37.0 SEC (26.7-34.1); Potassium 3.7 mmol/L (3.3-5.1); Sodium 141 mmol/L (135-145); Total Protein 8.0 g/dL (6.5-8.0)
[2024-12-23 20:21] VITALS: BP 167/74; PULSE 61; RESP 16; O2SAT 97
[2024-12-23 20:23] LABS: Troponin-I High Sensitivity 13.2 ng/L (<3.5-35.0)
--- OUTSIDE RECORDS SUMMARY | 2024-12-23 20:26 | XMS_ITS | Patient Health Record ---
Author Organization [facility] Address [address] [place] [address] Care Team Providers Care Soccer Ball Assembler Name Role Phone Gerardo Burgess Unavailable [phone] Reason For Referral No Information Plan Of Treatment No Information
[2024-12-23 20:53] VITALS: BP 165/78; PULSE 60; RESP 16; O2SAT 96
[2024-12-23 21:56] VITALS: BP 165/78; PULSE 60; RESP 16; TEMP 36.3; O2SAT 96
== END 2024-12-23 21:57 | disposition home or self-care (01) ==
PROVIDERS: Physician Assistant; Emergency Provider Emergency Medicine; PCP General Practice
DX: R79.89 Other specified abnormal findings of blood chemistry (principal); I10 Essential (primary) hypertension; R00.1 Bradycardia, unspecified; R94.31 Abnormal electrocardiogram [ECG] [EKG]; Z51.81 Encounter for therapeutic drug level monitoring; Z79.899 Other long term (current) drug therapy
CPT/HCPCS: 36415; 80053; 84484; 85025; 85610; 85730; 93005; 99283; 99284

== ENCOUNTER → 2024-12-23 19:45 | Outpatient (BNV) | payer OTHER, SELFPAY | PROVIDERS: Emergency Provider Emergency Medicine; PCP General Practice; Visit Provider Internal Medicine Cardiovascular Disease | DX: I45.10 Unspecified right bundle-branch block (principal); R00.1 Bradycardia, unspecified | CPT/HCPCS: 93010 ==

== ENCOUNTER 2024-12-28 09:21 | Outpatient (REF) | payer OTHER, SELFPAY ==
--- OUTSIDE RECORDS SUMMARY | 2024-12-28 10:22 | XMS_ITS | Encounter Summary ---
Author Organization [employer] Address [address] [facility] 7t [place] [address] Care Team Providers Care Facility Technician Name Role Phone Lori Acevedo MD Primary Care Provider [phone] Reason for Visit * Reason Comments Med Refill Encounter Details Date Type Department Care Team ([facility] st Contact Info) Description 01/17/2023 Refill [facility] MEDICINE [address] [place] [address] Lori Acevedo MD [address] [place] [address] Vitamin D deficiency Social History Tobacco Use Types Packs/Day Years Used Date Smoking Tobacco: Never Smokeless Tobacco: Never Alcohol Use Standard Drinks/Week Comments Never 0 (1 standard drink = 0.6 oz pur e alcohol) Housing Stability Answer Date Recorded What is your housing situation today? I have elandiego disla 01/04/[address] you li [...] deficiency documented in this encounter Care Teams Facility Technician Relationship Specialty Start Date End Date Lori Acevedo MD [address] [place] [address] PCP - General Family Medicine 02/16/20 documented as of this encounter
--- OUTSIDE RECORDS SUMMARY | 2024-12-28 10:22 | XMS_ITS | Encounter Summary ---
Author Organization [employer] Address [address] [facility] [address]t [place] [address] Care Team Providers Care Renewable Energy Consultant Name Role Phone Lori Acevedo MD Primary Care Provider [phone] Reason for Visit * Reason Onset Date Comments Telephone Call 12/24/2024 Encounter Details Date Type Department Care Team (Late st Contact Info) Description 12/24/2024 Telephone [facility] MEDICINE [address] [place] [address] Lori Acevedo MD [address] [place] [address] Telephone Call Social History Tobacco Use Types Packs/Day Years [...] from getting things needed for daily living? No 05/19/2023 Utilities Answer Date Recorded In the past 12 months, has t he electric, gas, oil or water company threatened to shut off services in your home? No 01/04/2023 Depression Answer Date Recorded Patient Health Questionnaire-2 Score 0 08/02/2022 Internet Access Answer Date Recorded Internet Access Q1 No 11/08/2023 Internet Access Q2 I do not want or need it 10/10 Sex and Gender Information Value Date Recorded Sex Assigned at Male 01/07/2022 10:15 AM EDT Legal Sex Male 10:15 AM EDT Gender Identity Male 01/07/2022 10:15 AM EDT Sexual Orientation Straight 01/07/2022 10 :15 AM EDT documented as of this encounter Miscellaneous Notes * Telephone Encounter - Keerthi Sloan RN - 12/27/2024 11:57 AM EDT TC placed to patient [phone] via [employer] (Luzma #[id number]) in regards to below message. Patient informed lipid panel has been ordered and patient should complete fasting. Patient verbalized understanding. Patient to f/u PRN. * Telephone Encounter - Yolanda Maya - 12/24/2024 11:13 AM EDT Pt walked in requesting for pcp to send lab order to check cholesterol levels. documented in this encounter Plan of Treatment Not on file documented as of this encounter Visit Diagnoses Not on filedocumented in this encounter Care Teams Renewable Energy Consultant Relationship Specialty Start Date End Date Lori Acevedo MD [address] [place] [id number] PCP - General Family Medicine 02/16/20 documented as of this encounter
--- OUTSIDE RECORDS SUMMARY | 2024-12-28 10:22 | XMS_ITS | Clinical Summary ---
Author Organization [facility] Address [address] [place] [address] Phone Care Team Providers Care Control Tower Radio Operator Name Role Phone Lori Acevedo MD Primary [...] of 1 - PCV) 1999 Influenza Vaccine (#1) 2024 Hepatitis B Vaccine Aged Out No longe r eligible based on patient's age to complete this topic Insurance [facility] Care Teams Control Tower Radio Operator Relationship Specialty Start Date End Date Lori Acevedo MD [address] [place] [id number] PCP - General Urgent Care 04/13/20
--- OUTSIDE RECORDS SUMMARY | 2024-12-28 10:22 | XMS_ITS | Encounter Summary ---
Author Organization [employer] Address [address] [facility] 7t [place] [address] Care Team Providers Care Truck Unloader Name Role Phone Lori Acevedo MD Primary Care Provider [phone] Encounter Details Date Type Department Care Team (Late st Contact Info) Description 12/27/2024 Orders Only [facility] MEDICINE [address] [place], [place] [phone] Lori Acevedo MD [address] [place], [place] [phone] Hypertensive heart disease without congestive heart failure (Primary Dx); Mixed hyperlipidemia Social History Tobacco Use Types Packs/Day Years [...] as of this encounter Plan of Treatment Scheduled Orders Name Type Priority Associated Diagnoses Orde r Schedule Lipid Panel, Standard Lab Routine Hypertensive heart disease without congestive heart failure Mixed hyperlipidemia Expected: 12/27/2024 (Approximate), Expires: 12/27/2025 documented as of this encounter Visit Diagnoses Diagnosis Hypertensive heart disease without congestive heart failure- Primary Unspecified hypertensive heart disease without heart failure Mixed hyperlipidemia documented in this encounter Care Teams Truck Unloader Relationship Specialty Start Date End Date Lori Acevedo MD [address] [place] [id number] PCP - General Family Medicine 02/16/20 documented as of this encounter
--- OUTSIDE RECORDS SUMMARY | 2024-12-28 10:22 | XMS_ITS | Encounter Summary ---
Author Organization [employer] Address [address] [facility] 7t [place] [address] Care Team Providers Care Manager Molecular Name Role Phone Lori Acevedo MD Primary Care Provider [phone] Encounter Details Date Type Department Care Team (Late st Contact Info) Description 04/22/2022 Orders Only [facility] MED & PEDS [address] [place] [address] Lorena Gutierrez LPN Social History Tobacco Use [...] on filedocumented in this encounter Care Teams Manager Molecular Relationship Specialty Start Date End Date Lori Acevedo MD [address] [place] [phone] PCP - General Family Medicine 02/16/20 documented as of this encounter
--- OUTSIDE RECORDS SUMMARY | 2024-12-28 10:22 | XMS_ITS | Clinical Summary ---
Author Organization [email or web address] Address [address] [facility] 7t [place] [address] Care Team Providers Care Sharepoint Application Architect Name Role Phone Lori Acevedo MD Primary Care Provider [phone] Allergies Active Allergy Reactions Criticality Noted Date Comments Statins 10/21/2011 Medications amLODIPine (Norvasc) 10 MG tablet TOME VICTOR M TABLETA TODOS LOS D FOR 30 DAYS 3 Active Blood Glucose Monitoring Suppl (FreeStyle Lite) w/Device kit TEST 1 TIMES BY INTRADERMAL ROUTE 3 TIMES EVERY DAY 2 Active carvedilol (Coreg) 25 MG tablet TOME VICTOR M TABLETA DOS VECES AL D A CON ALIMENTO 3 Active lisinopril-hydro CHLOROthiazide 20-25 MG tablet TOME DOS TABLETAS POR V A ORAL TODOS LOS D 3 Active fluticasone (Flonase) 50 MCG/ACT nasal spray SPRAY 2 SPRAYS INTO EACH NOSTRIL TODOS LOS CAMPOS CUANDO SEA NECESARIO 48 mL 3 3 Active FREESTYLE LITE test strip USE TO TEST ONCE DAILY 100 strip 11 4 Active loratadine (Claritin) 10 MG tablet TAKE 1 TABLET BY MOUTH EVERY DAY 90 tablet 3 4 Active cholecalciferol VITAMIN D (Vitamin D-3) 50 MCG (1999) capsuleIndicatio ns:Vitamin D deficiency TAKE 1 CAPSULE BY MOUTH EVERY DAY 90 capsule 3 5 Active atorvastatin (Lipitor) 40 MG tablet TOME VICTOR M TABLETA TODOS [place] CAMPOS 90 tablet 3 5 Active pantoprazole (ProtoNix) 20 MG EC tablet TOME 1 TABLETA POR VIA ORAL TODOS [place] CAMPOS 90 tablet 3 5 Active hydrALAZINE (Apresoline) 50 MG tabletIndication s:Essential hypertension TAKE 1 AND 1/2 TAB POR VIA ORAL DOS VECES AL BRONWYN 270 tablet 3 5 Active aspirin (Aspirin Low Dose) 81 MG EC tablet TAKE 1 TABLET BY MOUTH EVERY DAY 90 tablet 3 5 Active docusate sodium (Colace) 100 MG capsule TAKE 1 CAPSULE BY MOUTH IF NEEDED TWICE DAILY (MORNING AND BEDTIME) FOR PREVENT CONSTIPATION 180 capsule 3 5 Active metFORMIN XR (Glucophage-XR) 500 MG 24 hr tablet TAKE 1 TABLET (500 MG) BY MOUTH 2 TIMES DAILY. DO NOT CRUSH, CHEW, OR SPLIT. 180 tablet 1 5 Active ezetimibe (Zetia) 10 MG tablet TAKE 1 TABLET BY MOUTH EVERY DAY 90 tablet 3 5 Active clopidogrel (Plavix) 75 MG tablet TAKE 1 TABLET BY MOUTH EVERY DAY 90 tablet 3 5 Active Active Problems Problem Noted Date Diagnosed Date Type 2 diabetes mellitus wit h stage 3 chronic kidney disease, without long-term current use of insulin 01/24/2023 Assessment & Plan (05/27/2023 2:55 PM EDT): Current A1c: 7.0 BMP: Lab Results Component Value Date CREATININE 1.20 01/27/2023 CREATININE 1.30 01/06/2022 Microalbumin: Lab Results Component Value Date MICROALBUR 44.0 01/27/2023 Foot Exam: Normal, done today Eye Exam: Discuss at follow up Lipid panel: ASCVD: Calculate pending updated labs Statin: Yes ASA: No CAITLIN/ARB: No Encouraged regular aerobic exercise for improved glycemic control Encouraged daily foot checks Encouraged lean protein snacks and to avoid foods high in sugar and simple carbohydrates Treatment Goals: A1c goal: <7% FBG goal: <130 2 hour post prandial goal: <180 Assessment & Plan (01/24/2023 10:22 AM EST): Current A1c: 6.9 BMP: Lab Results Component Value Date CREATININE 1.41 (H) 10/11/2022 CREATININE 1.30 01/06/2022 Microalbumin: Foot Exam: Complete at follow up Eye Exam: Discuss at follow up Lipid panel: ASCVD: Calculate pending updated labs Statin: Yes ASA: No CAITLIN/ARB: No Encouraged regular aerobic exercise for improved glycemic control Encouraged daily foot checks Encouraged lean protein snacks and to avoid foods high in sugar and simple carbohydrates Treatment Goals: A1c goal: <7% FBG goal: <130 2 hour post prandial goal: <180 Carotid artery stenosis 08/01/2022 Assessment & Plan (10/01/2023 10:52 AM EDT): Monitored annually by cardiology R ICA 50-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 L ICA 16-49% blocked Stage 3 chronic kidney disease ([facility]) 022 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 Low kidney function 05/04/2020 Essential hypertension 02/22/2013 Assessment & Plan (10/01/2023 10:53 AM EDT): Labile, or as pt calls it emotional HTN Return hydralazine to 75mg BID dosing due to symptomatic lower blood pressures Consider additional causes/treatment for secondary hypertension (renal or carotid arteries?) Assessment & Plan (05/27/2023 2:54 PM EDT): Labile, or as pt calls it emotional HTN Continue hydralazine 75mg BID along with other agents Consider additional causes/treatment for secondary hypertension (renal or carotid arteries?) Assessment & Plan (01/24/2023 10:21 AM EST): Check BMP today due to CKD3 Continue hydralazine 75mg BID along with other agents Consider additional causes/treatment for secondary hypertension (renal or carotid arteries?) Assessment & Plan (08/02/2022 11:44 AM EDT): Check CMP today Not at goal? Has cardiology f/u next week May need to add back additional dose of Hydralazine Consider additional causes/treatment for secondary hypertension (renal or carotid arteries?) Dry skin dermatitis 04/02/2012 Normocytic anemia 04/02/2012 Cataract 12/25/2011 Constipation 12/25/2011 History of substance abuse ([facility]) 12/25/2011 Assessment & Plan (05/27/2023 2:56 PM EDT): In remission currently Assessment & Plan (01/24/2023 10:22 AM EST): In remission currently Hyperlipidemia 12/25/2011 Impaired fasting glucose 12/25/2011 Obesity 12/25/2011 Mass of testicle 12/11/2011 Hypertensive heart disease without congestive he art failure 08/21/2011 Peripheral vascular disease 10/29/2007 Assessment & Plan (05/27/2023 2:54 PM EDT): Managed by cardiology Assessment & Plan (01/24/2023 10:21 AM EST): Followed by Dr Alcala for cards Cerebrovascular accident ([facility]) 02/17/2001 Assessment & Plan (10/01/2023 10:51 AM EDT): With residual speech deficits No motor deficits On maximum medical therapy to reduce risk of reoccurrence Assessment & Plan (05/27/2023 2:53 PM EDT): With residual speech deficits No motor deficits On maximum medical therapy to reduce risk of reoccurrence Heart failure 03/30/2000 Encounters Date Type Department Care Team Description 12/27/2024 Orders Only [facility] [address] [place] [address] Lori Acevedo MD Hypertensive heart disease without congestive heart failure (Primary Dx); Mixed hyperlipidemia 12/24/2024 Telephone [facility] [address] [place] [address] Lori Acevedo MD Telephone Call 10/28/2024 Refill [facility] [address] [place] [address] Lori Acevedo MD 09/28/2024 Refill [facility] [address] [place] [address] Lori Acevedo MD from Last 3 Months Immunizations Immunization Administration Dates Next Due Hep A, Adult 12/25/2011 Influenza High-dose Quadriva lent Preservative Free 01/16/2022 Influenza Quadrivalent Adjuvanted 12/15/2019 Influenza injectable quadriv alent IIV4 with preservative 01/19/2016,01/05/2015 Influenza injectable quadriv alent preservative free 02/27/2021,12/14/2018,12/25/2016 Influenza, High Dose Seasona l, Preservative Free 12/10/2017 Influenza, IIV3, injectable 11/28/2010 Influenza, Split (incl. lorene fied surface antigen) 12/25/2011 Moderna Covid-19 Vaccine 12+ 06/06/2020,05/10/19 21 Pneumococcal Conjugate PCV 13 03/28/2016 Pneumococcal Polysaccharide PPSV23 01/16/2022, Td (adult), 5 Lf tetanus tox oid, preservative free, adsorbed 08/03/2014 Tdap 12/25/2011 Zoster, live 10/08/2016 Family History Medical History Relation Name Comments Stroke Brother Diabetes Mother Stroke Mother Stroke Sister Relation Name Status Comments Brother Mother Sister Social History Tobacco Use Types Packs/Day Years Used Date Smoking Tobacco: Never Smokeless Tobacco: Never Tobacco Cessation:Counseling Given: Not Answered Alcohol Use Standard Drinks/Week Comments Never 0 (1 standard drink = 0.6 oz pur e alcohol) Housing Stability Answer Date Recorded What is your housing situation today? I have elan disla 01/04/[address] you [...] Orientation Straight 01/07/2022 10 :15 AM EDT Last Filed Vital Signs Vital Sign Reading Time Taken Comments Blood Pressure 142/83 10/01/2023 9:10 AM EDT Pulse 63 10/01/2023 9:10 AM EDT Temperature 36.8 C (98.3 F) 10/01/2023 9:10 AM EDT Respiratory Rate 15 10/01/2023 9:10 AM EDT Oxygen Saturation 99% 10/01/2023 9:10 AM EDT Inhaled Oxygen Concentration - - Weight 94.3 kg (208 lb) 10/01/2023 9:10 AM EDT Height 180.3 cm (5' 11 ) 10/01/2023 9:10 AM EDT Body Mass Index 29.01 10/01/2023 9:10 AM EDT Plan of Treatment Health Maintenance Due Date Last Done Comments CT Colonography 1949 Colonoscopy 1949 Colorectal Cancer Screening 1950 FIT DNA/Cologuard 1949 FIT 1949 FOBT 1949 Sigmoidoscopy 1949 Alcohol/Substance Use Screening 1961 Zoster Vaccines (2 of 3) 12/03/2016 10/08/2016 Depression Screening 08/03/2023 08/02/2022, 08/03/19 23 Eye Exam 10/17/2023 10/16/2022, 08/11/2022, 10/16/2022, Additional history exists Diabetes: Urine Protein Screening 01/28/2024 01/27/2023, 01/18/2022, 03/20/2020 RSV Patients and Patients Aged 60 years or older (1 - 1-dose 75+ series) 2024 Diabetes: Hemoglobin A1C 04/02/2024 024, 05/27/2023, 01/24/2023, Additional history exists SDOH Screening 05/18/2024 05/19/2023 Diabetes: Foot Exam 05/26/2024 05/27/2023 DTaP/Tdap/Td Vaccines (3 - Td or Tdap) 08/03/2024 08/03/2014, 12/25/2011 Lipid Panel 09/30/2024 10/01/2023, 07/09, 01/18/2022, Additional history exists Tobacco Screening 09/30/2024 10/01/2023 COVID-19 Vaccine ( season) 2024 03/21/2021, 06/06/2020, 05/09/2020 Influenza Vaccine (#1) 2024 , 02/27/2021, 12/15/2019, Additional history exists Hepatitis A Vaccines Aged Out 12/25/2011 No long er eligible based on patient's age to complete this topic Pneumococcal Vaccine: 50+ Years Completed 01/16/2022, 03/28/2016, 02/06/2009 Hepatitis C Screening Completed 10/01/2023, 023 HIB Vaccines Aged Out No longer eligi ble based on patient's age to complete this topic HPV Vaccines Aged Out No longer eligi ble based on patient's age to complete this topic Hepatitis B Vaccines Aged Out No long er eligible based on patient's age to complete this topic IPV Vaccines Aged Out No longer eligi ble based on patient's age to complete this topic Meningococcal B Vaccine Aged Out No l onger eligible based on patient's age to complete this topic Meningococcal Vaccine Aged Out No jolie shaina eligible based on patient's age to complete this topic RSV under 20 months Aged Out No longe r eligible based on patient's age to complete this topic Rotavirus Vaccines Aged Out No longer eligible based on patient's age to complete this topic Procedures Procedure Name Priority Date/Time Associated Diagnosis Comments HIGH SENSITIVITY TROPONIN I Routine 12/23/2024 7:54 PM EDT COMPREHENSIVE METABOLIC PANEL Routine 12/23/2024 7:54 PM EDT APTT Routine 12/23/2024 7:54 PM EDT PROTHROMBIN TIME-INR Routine 12/23/2024 7:54 PM EDT CBC WITH AUTO DIFFERENTIAL Routine 12/23/2024 7:54 PM EDT HEPATITIS C AB W/REFL TO HCV RNA, QN, PCR Routine 10/01/2023 9:38 AM EDT Encounter for hepatitis C screening test for low risk patient LIPID PANEL, STANDARD Routine 10/01/2023 9:38 AM EDT Stage 3 chronic kidney disease, unspecified whether stage 3a or 3b CKD (CMS/HCC) POCT GLYCATED HEMOGLOBIN, TOTAL Routine 10/01/2023 9:13 AM EDT Type 2 diabetes mellitus with stage 3 chronic kidney disease, without long-term current use of insulin, unspecified whether stage 3a or 3b CKD (CMS/HCC) ALBUMIN, RANDOM URINE W/CREATININE Routine 01/27/2023 8:51 AM EST from Last 3 Months or Most Recently Relevant to Health Maintenance Results * High Sensitivity Troponin I (12/23/2024 7:54 PM EDT) [facility] TROPONIN I HIGH SENSITIVITY 13.2 <3.5 - 35.0 ng/L [facility] Comment:The [facility] high sens itivity Troponin-I results should beused in conjunction with other diagnostic information suchas ECG, clinical observations and information, and patientsymptoms to aid in the diagnosis of [place]. 12/23/2024 7:54 PM EDT 12/23/2024 7:57 PM EDT us Generic External Data Provider LAB BLOOD ORDERAB LES Final Result [facility] [address] [place] [phone] * (ABNORMAL) CBC auto differential (12/23/2024 7:54 PM EDT) [facility] White Blood Count 8.9 4.8 - 10.8 X10*3/uL [facility] Red Blood Count 5.24 4.60 - 5.80 X10*6/uL [facility] Hemoglobin 14.1 14.0 - 18.0 g/dl [facility] Hematocrit 44.3 42.0 - 52.0 % [facility] Mean Corpuscular Volume 84.5 80.0 - 98.0 fL [facility] Mean Corpuscular Hemoglobin 26.9(L) 27.0 - 33.0 pg [facility] Mean Corpuscular HGB Conc 31.8 31.0 - 36.0 g/dl [facility] Red Cell Distribution Width 14.3 11.0 - 16.0 % [facility] Platelet Count 262 160 - 400 X10*3/uL [facility] Mean Platelet Volume 9.2(L) 9.4 - 12.4 fL [facility] Neutrophils Percent Auto 67.1 45 - 73 % [facility] Imm Gran Pct Auto 0.3 0.0 - 0.4 % [facility] Lymphocytes Percent Auto 24.3 20 - 40 % [facility] Monocytes Percent Auto 7.0 2 - 11 % [facility] Eosinophils Percent Auto 0.9 0 - 4 % [facility] Basophils Percent Auto 0.4 0 - 2 % [facility] NRBC Pct Auto 0.0 0.0 - 0.2 /100WBC [facility] Neutrophils Absolute Auto 6.0 2.0 - 8.3 x10*3/uL [facility] Imm Gran Abs Auto 0.03 0.00 - 0.03 X10*3/uL [facility] Lymphocytes Absolute Auto 2.2 1.2 - 4.9 X10*3/uL [facility] Monocytes Absolute Auto 0.6 0.1 - 1.2 X10*3/uL [facility] Eosinophils Absolute Auto 0.1 0.0 - 0.4 X10*3/uL [facility] Basophils Absolute Auto 0.0 0.0 - 0.2 X10*3/uL [facility] NRBC Abs Auto 0.000 0.0 - 0.012 X10*3/uL [facility] 12/23/2024 7:54 PM EDT 12/23/2024 7:57 PM EDT Generic External Data Provider LAB BLOOD ORDERAB LES Final Result Performing Organization Address [facility]/ZIP Co de Phone Number [facility] [address] [place] [phone] * (ABNORMAL) Partial Thromboplastin Time, Activated (APTT) (12/23/2024 7:54 PM EDT) Partial Thromboplastin Time 37.0(H) 26.7 - 34.1 SEC [facility] 12/23/2024 7:54 PM EDT 12/23/2024 7:57 PM EDT Generic External Data Provider LAB BLOOD ORDERAB LES Final Result Performing Organization Address [facility] Co de Phone Number [facility] [address] [place] [phone] * Prothrombin Time-INR (12/23/2024 7:54 PM EDT) Prothrombin Time 12.1 10.9 - 12.4 SEC [facility] INTERNATIONAL NORM RATIO 1.1 0.9 - 1.1 [facility] Comment:INTERNATIONAL NORMAL IZED RATIO (INR) REFERENCE RANGES Reference RangeFor patients not on anticoagulant therapy: 0.9 - 1.1INR ranges for oral anticoagulanttherapy:For prevention and treatment of venous thrombosis and pulmonary embolism: 2.0 - 3.0For acute myocardial infarction with aspirin therapy: 2.0 - 3.0For acute myocardial infarction without aspirin therapy: 3.0 - 4.0For patients with mechanical prosthetic heart valves: 2.5 - 3.5 12/23/2024 7:54 PM EDT 12/23/2024 7:57 PM EDT Generic External Data Provider LAB BLOOD ORDERAB LES Final Result [facility] [address] [place], [place] [phone] * (ABNORMAL) Comprehensive Metabolic Panel (12/23/2024 7:54 PM EDT) Sodium 141 135 - 145 mmol/L [facility] Potassium 3.7 3.3 - 5.1 mmol/L [facility] Chloride 107 96 - 108 mmol/L [facility] Carbon Dioxide 27 22 - 29 mmol/L [facility] Anion Gap 11(L) 12 - 20 [facility] Urea Nitrogen (BUN) 11 9 - 16 mg/dL [facility] Creatinine, Serum 1.04 0.5 - 1.4 mg/dL [facility] Creatinine Clr Calc Pharmacy 71.3 [facility] Comment:eGFR (calculated fro m the MDRD study equation) and eCrCl(calculated from the Cockcroft-Gault equation) are based ondifferent parameters and may not yield comparable results.If eCrCl result is absurd, please check patient'sheight/weight. Estimated Glomerular Filt Rate >60 [facility] Comment:Chronic Kidney Disea se: Estimated GFR < 60 mL/min/1.31b0Jesyac Kidney Disease: Estimated GFR < 15 mL/min/1.73m2 Glucose 82 60 - 115 mg/dL [facility] Calcium 9.8 8.4 - 10.2 mg/dL [facility] Bilirubin, Total 0.3 0.0 - 1.0 mg/dL [facility] Aspartate Amino Transferase 27 5 - 37 U/L [facility] Alanine Aminotransferase 24 0 - 40 U/L [facility] Total Protein 8.0 6.5 - 8.0 g/dL [facility] Albumin Level 4.6 3.5 - 5.0 g/dL [facility] Alkaline Phosphatase 96 39 - 117 U/L [facility] 12/23/2024 7:54 PM EDT 12/23/2024 7:57 PM EDT us Generic External Data Provider LAB BLOOD ORDERAB LES Final Result Performing Organization Address [facility]/ZIP Co de Phone Number [facility] [address] [place] [phone] * Hepatitis C Antibody with Reflex to HCV, RNA, Quantitative, Real-Time PCR (10/01/2023 9:38 AM EDT) Hepatitis C Antibody Nonreactive Nonreactive [facility] Comment:Antibodies to HCV no t detected; does not exclude early acuteHCV infection. Blood Venous blood specimen / Unknown 10/01/2023 9:38 AM EDT 10/01/2023 11:44 AM EDT us Lori Acevedo MD LAB BLOOD ORDERABLES Final Res ult Performing Organization Address [facility] Co de Phone Number [facility] [address] [place] [phone] * Lipid Panel, Standard (10/01/2023 9:38 AM EDT) Triglycerides 60 <150 mg/dL [facility] Comment:Desirable Triglyceri de: less than 150 mg/dLBorderline High Triglyceride 150-199 mg/dLHigh Triglyceride: 200-499 mg/dLVery High Triglyceride: greater than or equal to 5OO mg/dL Cholesterol 115 <200 mg/dL [facility] Comment:Desirable Cholestero l: less than 200 mg/dLBorderline High Cholesterol: 200-239 mg/dLHigh Cholesterol: greater than 239 mg/dL LDL Cholesterol Calculated 59 <100 mg/dL [facility] Comment:Desirable LDL: less than 100 mg/dLNear Optimal/Above Optimal LDL: 110- 129 mg/dLBorderline High LDL: 130-159 mg/dLHigh LDL: 160-189 mg/dLVery High LDL: greater than or equal to 190 mg/dL HDL Cholesterol 44 >40 mg/dL [facility] Comment:Desirable HDL: great er than 40 mg/dL Note: This HDL assay may give artificially low results in patients with liver disease. Blood Venous blood specimen / Unknown 10/01/2023 9:38 AM EDT 10/01/2023 11:44 AM EDT Lori Acevedo MD LAB BLOOD ORDERABLES Final Res ult Performing Organization Address [facility]/ZIP Co de Phone Number [facility] [address] [place] [address] [phone] * (ABNORMAL) POCT HGB A1C (10/01/2023 9:13 AM EDT) Hemoglobin A1C 6.6(A) 4.0 - 6.0 % QC Media Lot # [id number] Lot# Expiration Date Blood 10/01/2023 9:13 AM EDT Lori Acevedo MD POINT OF CARE TEST ENTER/EDIT ORDERABLES Final Result * (ABNORMAL) Albumin, Random Urine W/Creatinine (01/27/2023 8:51 AM EST) Creatinine, Urine 141.34 mg/dL [facility] Microalbumin Urine 44.0 mg/L [facility] Microalbum Creatinine Ratio Ur 31.1(H) <30 ug/mg cr [facility] Comment:Albumin/Creatinine R atio Reference Ranges: Normal: < 30 ug/mg creatinine Microalbuminuria: 30 - 300 ug/mg creatinineClinical Albuminuria: > 300 ug/mg creatinine 01/27/2023 8:51 AM EST 01/27/2023 11:04 AM EST Lori Acevedo MD LAB URINE ORDERABLES Final Res ult Performing Organization Address [facility]/ZIP Co de Phone Number [facility] [address] [place] [phone] from Last 3 Months or Most Recently Relevant to Health Maintenance Insurance [facility] ASSISTED OPTIONS (HMO D-SNP) [employer] [employer]FF [id number] Care Teams Sharepoint Application Architect Relationship Specialty Start Date End Date Lori Acevedo MD [address] [place] [phone] PCP - General Family Medicine 02/16/20
--- OUTSIDE RECORDS SUMMARY | 2024-12-28 10:22 | XMS_ITS | Encounter Summary ---
Author Organization [employer] Address [address] [facility] [address] [place] [address] Care Team Providers Care Materials Planning Analyst Name Role Phone Lori Acevedo MD Primary Care Provider [phone] Encounter Details Date Type Department Care Team (Late st Contact Info) Description 05/31/2022 Orders Only [facility] [address] [place] [address] Lorena Gutierrez LPN Social History Tobacco Use [...] on filedocumented in this encounter Care Teams Materials Planning Analyst Relationship Specialty Start Date End Date Lori Acevedo MD [address] [place] [phone] PCP - General Family Medicine 02/16/20 documented as of this encounter
--- OUTSIDE RECORDS SUMMARY | 2024-12-28 10:22 | XMS_ITS | Patient Health Record ---
Author Organization [employer] Address [address] [place] [address] Care Team Providers Care Engine Designer Name Role Phone Gerardo Burgess Unavailable [phone] Reason For Referral No Information Plan Of Treatment No Information
--- OUTSIDE RECORDS SUMMARY | 2024-12-28 10:22 | XMS_ITS | Encounter Summary ---
Author Organization [employer] Address [address] [facility] 7t [place] [address] Care Team Providers Care Gas And Oil Servicer Name Role Phone Lori Acevedo MD Primary Care Provider [phone] Encounter Details Date Type Department Care Team (Late st Contact Info) Description 08/07/2022 Orders Only [facility]INE [address] [place] [address] [phone] Lori Acevedo MD [address] [place], [place] [phone] Social History Tobacco Use Types Packs/Day Years [...] on filedocumented in this encounter Care Teams Gas And Oil Servicer Relationship Specialty Start Date End Date Lori Acevedo MD [address] [place] [address] [phone] PCP - General Family Medicine 02/16/20 documented as of this encounter
[2024-12-28 12:09] LABS: Cholesterol 124 mg/dL (<200); HDL Cholesterol 47 mg/dL (>40); Triglycerides 62 mg/dL (<150)
== END 2024-12-28 09:22 | disposition home or self-care (01) ==
LOC: HO.HHCL 09:21
PROVIDERS: PCP General Practice; Visit Provider General Practice
DX: I11.9 Hypertensive heart disease without heart failure (principal); E78.2 Mixed hyperlipidemia
CPT/HCPCS: 36415; 80061

== ENCOUNTER 2025-02-24 23:46 | Emergency (ER) | payer OTHER, SELFPAY ==
[2025-02-24 23:59] VITALS: BP 176/79; PULSE 74; RESP 16; TEMP 36.5; O2SAT 96; BMI 29.3
--- NOTE | 2025-02-25 | ECG_ITS ---
Test Reason : HYPERTENSION Blood Pressure : */* mmHG Vent. Rate : 54 BPM Atrial Rate : 54 BPM P-R Int : 178 ms QRS Dur : 128 ms QT Int : 420 ms P-R-T Axes : 39 3 42 degrees QTcB Int : 398 ms Sinus bradycardia Left ventricular hypertrophy with QRS widening and repolarization abnormality ( Kiron product ) Abnormal ECG When compared with ECG of 23-Dec-2024 19:49, Incomplete left bundle branch block is no longer Present Referred By: Generic ED Physician Electronically Signed By: Marlon Conte
[2025-02-25 00:16] LABS: Hematocrit 41.7 % (42.0-52.0); Hemoglobin 13.4 g/dl (14.0-18.0); Imm Gran Abs Auto 0.02 X10*3/uL (0.00-0.03); Imm Gran Pct Auto 0.2 % (0.0-0.4); Lymphocytes Absolute Auto 2.5 X10*3/uL (1.2-4.9); MANUAL DIFF FLAG NO; Mean Corpuscular HGB Conc 32.1 g/dl (31.0-36.0); Mean Corpuscular Hemoglobin 27.0 pg (27.0-33.0); Mean Corpuscular Volume 84.1 fL (80.0-98.0); NRBC Abs Auto 0.000 X10*3/uL (0.0-0.012); NRBC Pct Auto 0.0 /100WBC (0.0-0.2); Platelet Count 230 X10*3/uL (160-400); Red Blood Count 4.96 X10*6/uL (4.60-5.80); White Blood Count 8.5 X10*3/uL (4.8-10.8)
[2025-02-25 00:38] LABS: Alanine Aminotransferase 20 U/L (0-40); Albumin Level 4.3 g/dL (3.5-5.0); Alkaline Phosphatase 101 U/L (39-117); Anion Gap 11 (12-20); Aspartate Amino Transferase 20 U/L (5-37); Blood Urea Nitrogen 14 mg/dL (9-16); Carbon Dioxide 26 mmol/L (22-29); Chloride 103 mmol/L (96-108); Creatinine Clr Calc Pharmacy 65.9; Estimated Glomerular Filt Rate > 60; Potassium 3.9 mmol/L (3.3-5.1); Sodium 136 mmol/L (135-145); Total Protein 7.3 g/dL (6.5-8.0)
[2025-02-25 00:40] LABS: Troponin-I High Sensitivity 11.1 ng/L (<3.5-35.0)
[2025-02-25 00:43] LABS: Calcium 9.8 mg/dL (8.4-10.2)
[2025-02-25 02:00] VITALS: BP 153/74; PULSE 53; RESP 17; TEMP 36.9; O2SAT 97
--- OUTSIDE RECORDS SUMMARY | 2025-02-25 02:33 | XMS_ITS | Encounter Summary ---
Author Organization [email or web address] Address [address] [facility] [address] [place] [address] Care Team Providers Care Retail Support Manager Name Role Phone Lori Acevedo MD Primary Care Provider [phone] Encounter Details Date Type Department Care Team (Late st Contact Info) Description 12/27/2024 Orders Only [facility] [address] [place], [place] [phone] Lori Acevedo MD [address] [place], [place] [phone] Hypertensive heart disease without congestive heart failure [...] on file documented as of this encounter Procedures Procedure Name Priority Date/Time Associated Diagnosis Comments HIGH SENSITIVITY TROPONIN I Routine 02/25/2025 12:12 AM EST Hypertensive heart disease without congestive heart failure CBC WITH AUTO DIFFERENTIAL Routine 02/25/2025 12:12 AM EST Hypertensive heart disease without congestive heart failure COMPREHENSIVE METABOLIC PANEL Routine 02/25/2025 12:12 AM EST Hypertensive heart disease without congestive heart failure LIPID PANEL, STANDARD Routine 12/28/2024 9:26 AM EDT Hypertensive heart disease without congestive heart failure Mixed hyperlipidemia documented in this encounter Results * High Sensitivity Troponin I (02/25/2025 12:12 AM EST) TROPONIN I HIGH SENSITIVITY 11.1 <3.5 - 35.0 ng/L [facility] Comment:The [place] high sens itivity Troponin-I results should beused in conjunction with other diagnostic information suchas ECG, clinical observations and information, and patientsymptoms to aid in the diagnosis of NE. 02/25/2025 12:1 2 AM EST 02/25/2025 12:15 AM EST us Generic External Data Provider LAB BLOOD ORDERAB LES Final Result [facility] [address] [place] [phone] * (ABNORMAL) Comprehensive Metabolic Panel (02/25/2025 12:12 AM EST) Sodium 136 135 - 145 mmol/L [facility] Potassium 3.9 3.3 - 5.1 mmol/L [facility] Chloride 103 96 - 108 mmol/L [facility] Carbon Dioxide 26 22 - 29 mmol/L [facility] Anion Gap 11(L) 12 - 20 [facility] Urea Nitrogen (BUN) 14 9 - 16 mg/dL [facility] Creatinine, Serum 1.14 0.5 - 1.4 mg/dL [facility] Creatinine Clr Calc Pharmacy 65.9 [facility] Comment:eGFR (calculated fro m the MDRD study equation) and eCrCl(calculated from the Cockcroft-Gault equation) are based ondifferent parameters and may not yield comparable results.If eCrCl result is absurd, please check patient'sheight/weight. Estimated Glomerular Filt Rate >60 [facility] Comment:Chronic Kidney Disea se: Estimated GFR < 60 mL/min/1.03v2Wldhty Kidney Disease: Estimated GFR < 15 mL/min/1.73m2 Glucose 102 60 - 115 mg/dL [facility] Calcium 9.8 8.4 - 10.2 mg/dL [facility] Bilirubin, Total 0.3 0.0 - 1.0 mg/dL [facility] Aspartate Amino Transferase 20 5 - 37 U/L [facility] Alanine Aminotransferase 20 0 - 40 U/L [facility] Total Protein 7.3 6.5 - 8.0 g/dL [facility] Albumin Level 4.3 3.5 - 5.0 g/dL [facility] Alkaline Phosphatase 101 39 - 117 U/L [facility] 02/25/2025 12:1 2 AM EST 02/25/2025 12:15 AM EST us Generic External Data Provider LAB BLOOD ORDERAB LES Final Result [facility] [address] [place] [phone] * (ABNORMAL) CBC auto differential (02/25/2025 12:12 AM EST) White Blood Count 8.5 4.8 - 10.8 X10*3/uL [facility] Red Blood Count 4.96 4.60 - 5.80 X10*6/uL [facility] Hemoglobin 13.4(L) 14.0 - 18.0 g/dl [facility] Hematocrit 41.7(L) 42.0 - 52.0 % [facility] Mean Corpuscular Volume 84.1 80.0 - 98.0 fL [facility] Mean Corpuscular Hemoglobin 27.0 27.0 - 33.0 pg [facility] Mean Corpuscular HGB Conc 32.1 31.0 - 36.0 g/dl [facility] Red Cell Distribution Width 13.5 11.0 - 16.0 % [facility] Platelet Count 230 160 - 400 X10*3/uL [facility] Mean Platelet Volume 9.6 9.4 - 12.4 fL [facility] Neutrophils Percent Auto 59.6 45 - 73 % [facility] Imm Gran Pct Auto 0.2 0.0 - 0.4 % [facility] Lymphocytes Percent Auto 28.8 20 - 40 % [facility] Monocytes Percent Auto 9.4 2 - 11 % [facility] Eosinophils Percent Auto 1.4 0 - 4 % [facility] Basophils Percent Auto 0.6 0 - 2 % [facility] NRBC Pct Auto 0.0 0.0 - 0.2 /100WBC [facility] Neutrophils Absolute Auto 5.1 2.0 - 8.3 x10*3/uL [facility] Imm Gran Abs Auto 0.02 0.00 - 0.03 X10*3/uL [facility] Lymphocytes Absolute Auto 2.5 1.2 - 4.9 X10*3/uL [facility] Monocytes Absolute Auto 0.8 0.1 - 1.2 X10*3/uL [facility] Eosinophils Absolute Auto 0.1 0.0 - 0.4 X10*3/uL [facility] Basophils Absolute Auto 0.1 0.0 - 0.2 X10*3/uL [facility] NRBC Abs Auto 0.000 0.0 - 0.012 X10*3/uL [facility] 02/25/2025 12:1 2 AM EST 02/25/2025 12:15 AM EST us Generic External Data Provider LAB BLOOD ORDERAB LES Final Result Performing Organization Address City/[facility]/ZIP Co de Phone Number [facility] [address] [place] [phone] * Lipid Panel, Standard (12/28/2024 9:26 AM EDT) Triglycerides 62 <150 mg/dL [facility] Comment:Desirable Triglyceri de: less than 150 mg/dLBorderline High Triglyceride 150-199 mg/dLHigh Triglyceride: 200-499 mg/dLVery High Triglyceride: greater than or equal to 5OO mg/dL Cholesterol 124 <200 mg/dL [facility] Comment:Desirable Cholestero l: less than 200 mg/dLBorderline High Cholesterol: 200-239 mg/dLHigh Cholesterol: greater than 239 mg/dL LDL Cholesterol Calculated 65 <100 mg/dL [facility] Comment:Desirable LDL: less than 100 mg/dLNear Optimal/Above Optimal LDL: 110- 129 mg/dLBorderline High LDL: 130-159 mg/dLHigh LDL: 160-189 mg/dLVery High LDL: greater than or equal to 190 mg/dL HDL Cholesterol 47 >40 mg/dL [facility] Comment:Desirable HDL: great er than 40 mg/dL Note: This HDL assay may give artificially low results in patients with liver disease. Blood Venous blood specimen / Unknown 12/28/2024 9:26 AM EDT 12/28/2024 11:36 AM EDT us Lori Acevedo MD LAB BLOOD ORDERABLES Final Res ult [facility] [address] [place] [phone] documented in this encounter Visit Diagnoses Diagnosis Hypertensive heart disease without congestive heart failure- Primary Unspecified hypertensive heart disease without heart failure Mixed hyperlipidemia documented in this encounter Care Teams Retail Support Manager Relationship Specialty Start Date End Date Lori Acevedo MD [address] [place] [phone] PCP - General Family Medicine 02/16/20 documented as of this encounter
--- OUTSIDE RECORDS SUMMARY | 2025-02-25 02:33 | XMS_ITS | Encounter Summary ---
Author Organization [employer] Address [address] [facility] [address] [place] [address] Care Team Providers Care Architectural Examiner Name Role Phone Lori Acevedo MD Primary Care Provider [phone] Reason for Visit * Reason Comments Med Refill Encounter Details Date Type Department Care Team ([facility] st Contact Info) Description 02/25/2025 Refill [facility] [address] [place], [place] [phone] Lori Acevedo MD [address] [place], [place] [phone] Social History Tobacco Use Types Packs/Day Years [...] on filedocumented in this encounter Care Teams Architectural Examiner Relationship Specialty Start Date End Date Lori Acevedo MD [address] [place] [phone] PCP - General Family Medicine 02/16/20 documented as of this encounter
--- OUTSIDE RECORDS SUMMARY | 2025-02-25 02:34 | XMS_ITS | Encounter Summary ---
Author Organization [email or web address] Address [address] [facility] [address] [place] [address] Care Team Providers Care Pool Cleaner Name Role Phone Lori Acevedo MD Primary Care Provider [phone] Encounter Details Date Type Department Care Team (Late st Contact Info) Description 04/22/2022 Orders Only [facility] [address] [place] [phone] Lorena Gutierrez LPN Social History Tobacco Use [...] on filedocumented in this encounter Care Teams Pool Cleaner Relationship Specialty Start Date End Date Lori Acevedo MD [address] [place] [phone] PCP - General Family Medicine 02/16/20 documented as of this encounter
--- OUTSIDE RECORDS SUMMARY | 2025-02-25 02:34 | XMS_ITS | Encounter Summary ---
Author Organization [employer] Address [address] [facility] 7[address] [place] [address] Care Team Providers Care Air Drier Machine Operator Name Role Phone Lori Acevedo MD Primary Care Provider [phone] Encounter Details Date Type Department Care Team (Late st Contact Info) Description 08/07/2022 Orders Only [facility] [address] [place] [address] [phone] Lori Acevedo MD [address] [place], [place] [phone] Social History Tobacco Use Types Packs/Day Years [...] on filedocumented in this encounter Care Teams Air Drier Machine Operator Relationship Specialty Start Date End Date Lori Acevedo MD [address] [place] [address] [phone] PCP - General Family Medicine 02/16/20 documented as of this encounter
--- OUTSIDE RECORDS SUMMARY | 2025-02-25 02:34 | XMS_ITS | Patient Health Record ---
Author Organization [facility] Address [address] [place] [address] Care Team Providers Care Silviculture Professor Name Role Phone Gerardo Burgess Unavailable [phone] Reason For Referral No Information Plan Of Treatment No Information
--- OUTSIDE RECORDS SUMMARY | 2025-02-25 02:34 | XMS_ITS | Clinical Summary ---
Author Organization [employer] Address [address] [facility] [address] [place] [address] Care Team Providers Care Die Tester Name Role Phone Lori Acevedo MD Primary Care Provider [phone] Allergies Active Allergy Reactions Criticality Noted Date Comments Statins 10/21/2011 Medications amLODIPine (Norvasc) 10 MG tablet TOME VICTOR M TABLETA TODOS LOS D FOR 30 DAYS 06/15/19 23 Active Blood Glucose Monitoring Suppl (First Stop HealthStyle Lite) w/Device kit TEST 1 TIMES BY INTRADERMAL ROUTE 3 TIMES EVERY DAY 10/31/19 22 Active carvedilol (Coreg) 25 MG tablet TOME VICTOR M TABLETA DOS VECES AL D A CON ALIMENTO 05/18/19 23 Active lisinopril-hydr oCHLOROthiazide 20-25 MG tablet TOME DOS TABLETAS POR V A ORAL TODOS LOS D 06/22/19 23 Active fluticasone (Flonase) 50 MCG/ACT nasal spray SPRAY 2 SPRAYS INTO EACH NOSTRIL TODOS LOS CAMPOS CUANDO SEA NECESARIO 48 mL 3 01/07/20 23 Active loratadine (Claritin) 10 MG tablet TAKE 1 TABLET BY MOUTH EVERY DAY 90 tablet 3 01/06/20 24 Active cholecalciferol VITAMIN D (Vitamin D-3) 50 MCG (1999 UT) capsuleIndicati ons:Vitamin D deficiency TAKE 1 CAPSULE BY MOUTH EVERY DAY 90 capsule 3 04/08/19 25 Active atorvastatin (Lipitor) 40 MG tablet TOME VICTOR M TABLETA TODOS LOS CAMPOS 90 tablet 3 05/05/19 25 Active pantoprazole (ProtoNix) 20 MG EC tablet TOME 1 TABLETA POR VIA ORAL TODOS LOS CAMPOS 90 tablet 3 08/04/19 25 Active hydrALAZINE (Apresoline) 50 MG tabletIndicatio ns:Essential hypertension TAKE 1 AND 1/2 TAB POR VIA ORAL DOS VECES AL BRONWYN 270 tablet 3 08/04/19 25 Active aspirin (Aspirin Low Dose) 81 MG EC tablet TAKE 1 TABLET BY MOUTH EVERY DAY 90 tablet 3 08/28/19 25 Active docusate sodium (Colace) 100 MG capsule TAKE 1 CAPSULE BY MOUTH IF NEEDED TWICE DAILY (MORNING AND BEDTIME) FOR PREVENT CONSTIPATION 180 capsule 3 09/25/19 25 Active metFORMIN XR (Glucophage-XR) 500 MG 24 hr tablet TAKE 1 TABLET (500 MG) BY MOUTH 2 TIMES DAILY. DO NOT CRUSH, CHEW, OR SPLIT. 180 tablet 1 09/30/19 25 Active ezetimibe (Zetia) 10 MG tablet TAKE 1 TABLET BY MOUTH EVERY DAY 90 tablet 3 10/30/19 25 Active clopidogrel (Plavix) 75 MG tablet TAKE 1 TABLET BY MOUTH EVERY DAY 90 tablet 3 10/30/19 25 Active glucose blood (FREESTYLE LITE) test strip TEST BLOOD SUGAR ONCE A DAY 100 strip 02/01/20 Active FREESTYLE LITE test strip USE TO TEST ONCE DAILY 100 strip 11 11/11/19 24 2024 Discontinued Active Problems Problem Noted Date Diagnosed Date [...] 16-49% blocked Stage 3 chronic kidney disease ([facility]) 022 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 Low kidney function [...] 12/25/2011 Constipation 12/25/2011 History of substance abuse ([facility]) 12/25/2011 Assessment & Plan (05/27/2023 2:56 PM [...] by Dr Alcala for cards Cerebrovascular accident ([facility]) 02/17/2001 Assessment & Plan (10/01/2023 10:51 AM EDT): With residual speech deficits No motor deficits On maximum medical therapy to reduce risk of reoccurrence Assessment & Plan (05/27/2023 2:53 PM EDT): With residual speech deficits No motor deficits On maximum medical therapy to reduce risk of reoccurrence Heart failure 03/30/2000 Encounters Date Type Department Care Team Description 02/25/2025 Refill [facility] [address] [facility] [place] [address] Lori Acevedo MD 01/29/2025 Refill [facility] [address] [facility] [place] [address] Lori Acevedo MD 12/27/2024 Orders Only [facility] [address] [facility] [place] [address] Lori Acveedo MD Hypertensive heart disease without congestive heart failure (Primary Dx); Mixed hyperlipidemia 12/24/2024 Telephone [facility] [address] [facility] [place] [address] Lori Acevedo MD Telephone Call from Last 3 Months Immunizations Immunization Administration [...] 08/02/2022, 08/03/19 23 Eye Exam 10/17/2023 10/16/2022, 11/2022, 10/16/2022, Additional history exists Diabetes: Urine Protein Screening 01/28/2024 01/27/2023, 01/18/2022, 03/20/2020 RSV Patients and Patients Aged 60 years or older (1 - 1-dose 75+ series) 2024 Diabetes: Hemoglobin A1C 04/02/2024 024, 05/27/2023, 01/24/2023, Additional history exists SDOH Screening 05/18/2024 05/19/2023 Diabetes: Foot Exam 05/26/2024 05/27/2023 DTaP/Tdap/Td Vaccines (3 - Td or Tdap) 08/03/2024 08/03/2014, 12/25/2011 Tobacco Screening 09/30/2024 10/01/2023 COVID-19 Vaccine (4 - season) 2024 03/21/2021, 06/06/2020, 05/09/2020 Influenza Vaccine (#1) 2024 , 02/27/2021, 12/15/2019, Additional history exists Lipid Panel 12/28/2025 12/28/2024, 09/08, 08/02/2022, Additional history exists Hepatitis A Vaccines Aged [...] disease without congestive heart failure Mixed hyperlipidemia HIGH SENSITIVITY TROPONIN I Routine 12/23/2024 7:54 PM EDT COMPREHENSIVE METABOLIC PANEL Routine 12/23/2024 7:54 PM EDT APTT Routine 12/23/2024 7:54 PM EDT PROTHROMBIN TIME-INR Routine 12/23/2024 7:54 PM EDT CBC WITH AUTO DIFFERENTIAL Routine 12/23/2024 7:54 PM EDT HEPATITIS C AB W/REFL TO HCV RNA, QN, PCR Routine 10/01/2023 9:38 AM EDT Encounter for hepatitis C screening test for low risk patient POCT GLYCATED HEMOGLOBIN, TOTAL Routine 10/01/2023 9:13 AM EDT Type 2 diabetes mellitus with stage 3 chronic kidney disease, without long-term current use of insulin, unspecified whether stage 3a or 3b CKD (CMS/HCC) ALBUMIN, RANDOM URINE W/CREATININE Routine 01/27/2023 8:51 AM EST from Last 3 Months or Most Recently Relevant to Health Maintenance Results * High Sensitivity Troponin I (02/25/2025 12:12 AM EST) Only the most recent of2 resultswithin the time period is included. TROPONIN I HIGH SENSITIVITY 11.1 <3.5 - 35.0 ng/L [facility] Comment:The E[place]erson high sens itivity Troponin-I results should beused in conjunction with other diagnostic information suchas ECG, clinical observations and information, and patientsymptoms to aid in the diagnosis of [place]. 02/25/2025 12:1 2 AM EST 02/25/2025 12:15 AM EST us Generic External Data Provider LAB BLOOD ORDERAB LES Final Result [facility] [address] [place] [address] [phone] * (ABNORMAL) CBC auto differential (02/25/2025 12:12 AM EST) Only the most recent of2 resultswithin the time period is included. White Blood Count 8.5 4.8 - 10.8 X10*3/uL [facility] Red Blood Count 4.96 4.60 - 5.80 X10*6/uL [facility] Hemoglobin 13.4(L) 14.0 - 18.0 g/dl [facility] Hematocrit 41.7(L) 42.0 - 52.0 % [facility] Mean Corpuscular Volume 84.1 80.0 - 98.0 fL [facility] Mean Corpuscular Hemoglobin 27.0 27.0 - 33.0 pg [facility] Mean Corpuscular HGB Conc 32.1 31.0 - 36.0 g/dl [facility] Red Cell Distribution Width 13.5 11.0 - 16.0 % [facility] Platelet Count 230 160 - 400 X10*3/uL [facility] Mean Platelet Volume 9.6 9.4 - 12.4 fL [facility] Neutrophils Percent Auto 59.6 45 - 73 % [facility] Imm Gran Pct Auto 0.2 0.0 - 0.4 % [facility] Lymphocytes Percent Auto 28.8 20 - 40 % [facility] Monocytes Percent Auto 9.4 2 - 11 % [facility] Eosinophils Percent Auto 1.4 0 - 4 % [facility] Basophils Percent Auto 0.6 0 - 2 % [facility] NRBC Pct Auto 0.0 0.0 - 0.2 /100WBC [facility] Neutrophils Absolute Auto 5.1 2.0 - 8.3 x10*3/uL [facility] Imm Gran Abs Auto 0.02 0.00 - 0.03 X10*3/uL [facility] Lymphocytes Absolute Auto 2.5 1.2 - 4.9 X10*3/uL [facility] Monocytes Absolute Auto 0.8 0.1 - 1.2 X10*3/uL [facility] Eosinophils Absolute Auto 0.1 0.0 - 0.4 X10*3/uL [facility] Basophils Absolute Auto 0.1 0.0 - 0.2 X10*3/uL [facility] NRBC Abs Auto 0.000 0.0 - 0.012 X10*3/uL [facility] 02/25/2025 12:1 2 AM EST 02/25/2025 12:15 AM EST us Generic External Data Provider LAB BLOOD ORDERAB LES Final Result [facility] [address] [place] [address] [phone] * (ABNORMAL) Comprehensive Metabolic Panel (02/25/2025 12:12 AM EST) Only the most recent of2 resultswithin the time period is included. Sodium 136 135 - 145 mmol/L [facility] Potassium 3.9 3.3 - 5.1 mmol/L [facility] Chloride 103 96 - 108 mmol/L [facility] Carbon Dioxide 26 22 - 29 mmol/L [facility] Anion Gap 11(L) 12 - 20 [facility] Urea Nitrogen (BUN) 14 9 - 16 mg/dL [facility] Creatinine, Serum 1.14 0.5 - 1.4 mg/dL [facility] Creatinine Clr Calc Pharmacy 65.9 [facility] Comment:eGFR (calculated fro m the MDRD study equation) and eCrCl(calculated from the Cockcroft-Gault equation) are based ondifferent parameters and may not yield comparable results.If eCrCl result is absurd, please check patient'sheight/weight. Estimated Glomerular Filt Rate >60 [facility] Comment:Chronic Kidney Disea se: Estimated GFR < 60 mL/min/1.46n4Malloo Kidney Disease: Estimated GFR < 15 mL/min/1.73m2 Glucose 102 60 - 115 mg/dL [facility] Calcium 9.8 8.4 - 10.2 mg/dL [facility] Bilirubin, Total 0.3 0.0 - 1.0 mg/dL [facility] Aspartate Amino Transferase 20 5 - 37 U/L [facility] Alanine Aminotransferase 20 0 - 40 U/L [facility] Total Protein 7.3 6.5 - 8.0 g/dL [facility] Albumin Level 4.3 3.5 - 5.0 g/dL [facility] Alkaline Phosphatase 101 39 - 117 U/L [facility] 02/25/2025 12:1 2 AM EST 02/25/2025 12:15 AM EST us Generic External Data Provider LAB BLOOD ORDERAB LES Final Result [facility] [address] [place] [address] [phone] * Lipid Panel, Standard (12/28/2024 9:26 AM EDT) Triglycerides 62 <150 mg/dL [facility] Comment:Desirable Triglyceri de: less than 150 mg/dLBorderline High Triglyceride 150-199 mg/dLHigh Triglyceride: 200-499 mg/dLVery High Triglyceride: greater than or equal to 5OO mg/dL Cholesterol 124 <200 mg/dL [facility] Comment:Desirable Cholestero l: less than 200 mg/dLBorderline High Cholesterol: 200-239 mg/dLHigh Cholesterol: greater than 239 mg/dL LDL Cholesterol Calculated 65 <100 mg/dL [facility] Comment:Desirable LDL: less than 100 mg/dLNear Optimal/Above Optimal LDL: 110- 129 mg/dLBorderline High LDL: 130-159 mg/dLHigh LDL: 160-189 mg/dLVery High LDL: greater than or equal to 190 mg/dL HDL Cholesterol 47 >40 mg/dL [facility] Comment:Desirable HDL: great er than 40 mg/dL Note: This HDL assay may give artificially low results in patients with liver disease. Blood Venous blood specimen / Unknown 12/28/2024 9:26 AM EDT 12/28/2024 11:36 AM EDT us Lori Acevedo MD LAB BLOOD ORDERABLES Final Res ult Performing Organization Address [facility] Co de Phone Number [facility] [address] [place] [phone] * (ABNORMAL) Partial Thromboplastin Time, Activated (APTT) (12/23/2024 7:54 PM EDT) Partial Thromboplastin Time 37.0(H) 26.7 - 34.1 SEC [facility] 12/23/2024 7:54 PM EDT 12/23/2024 7:57 PM EDT us Generic External Data Provider LAB BLOOD ORDERAB LES Final Result Performing Organization Address [facility] de Phone Number [facility] [address] [place] [phone] * Prothrombin Time-INR (12/23/2024 7:54 PM EDT) Prothrombin Time 12.1 10.9 - 12.4 SEC [facility] INTERNATIONAL NORM RATIO 1.1 0.9 - 1.1 [facility] Comment:INTERNATIONAL NORMAL IZED RATIO (INR) REFERENCE [...] ORDERAB LES Final Result Performing Organization Address [facility]/ZIP Co de Phone Number [facility] [address] [place] [address] [phone] * Hepatitis C Antibody with Reflex to HCV, RNA, Quantitative, Real-Time PCR (10/01/2023 9:38 AM EDT) Pathologist [facility] Hepatitis C Antibody Nonreactive Nonreactive [facility] Comment:Antibodies to HCV no t detected; does not exclude early acuteHCV infection. Blood Venous blood specimen / Unknown 10/01/2023 9:38 AM EDT 10/01/2023 11:44 AM EDT Lori Acevedo MD LAB BLOOD ORDERABLES Final Res ult Performing Organization Address [facility] Co de Phone Number [facility] [address] [place] [address] [phone] * (ABNORMAL) POCT HGB A1C (10/01/2023 9:13 AM EDT) Pathologist [facility] Hemoglobin A1C 6.6(A) 4.0 - 6.0 % QC Media Lot # [id number] Lot# Expiration Date [id number] Blood 10/01/2023 9:13 AM EDT Lori Acevedo MD POINT OF CARE TEST ENTER/EDIT ORDERABLES Final Result * (ABNORMAL) Albumin, Random Urine W/Creatinine (01/27/2023 8:51 AM EST) Pathologist [facility] Creatinine, Urine 141.34 mg/dL [facility] Microalbumin Urine 44.0 mg/L [facility] Microalbum Creatinine Ratio Ur 31.1(H) <30 ug/mg cr [facility] Comment:Albumin/Creatinine R atio Reference Ranges: Normal: < 30 ug/mg creatinine Microalbuminuria: 30 - 300 ug/mg creatinineClinical Albuminuria: > 300 ug/mg creatinine 01/27/2023 8:51 AM EST 01/27/2023 11:04 AM EST Lori Acevedo MD LAB URINE ORDERABLES Final Res ult [facility] [address] [place] [address] [phone] from Last 3 Months or Most Recently Relevant to Health Maintenance Insurance [facility] [employer] (HMO D-SNP) [place]FF [id number] Care Teams Die Tester Relationship Specialty Start Date End Date Lori Acevedo MD [address] [place] [address] PCP - General Family Medicine 02/16/20
--- OUTSIDE RECORDS SUMMARY | 2025-02-25 02:34 | XMS_ITS | Encounter Summary ---
Author Organization [employer] Address [address] [facility] [address] [place] [address] Care Team Providers Care Sports Cartoonist Name Role Phone Lori Acevedo MD Primary Care Provider [phone] Encounter Details Date Type Department Care Team (Late st Contact Info) Description 05/31/2022 Orders Only [facility] [address] [place] [address] Lorena Gutierrez LPN Social History Tobacco Use [...] on filedocumented in this encounter Care Teams Sports Cartoonist Relationship Specialty Start Date End Date Lori Acevedo MD [address] [place] [phone] PCP - General Family Medicine 02/16/20 documented as of this encounter
--- OUTSIDE RECORDS SUMMARY | 2025-02-25 02:34 | XMS_ITS | Encounter Summary ---
Author Organization [email or web address] Address [address] [facility] [address] [place] [address] Care Team Providers Care Bobtail Driver Name Role Phone Lori Acevedo MD Primary Care Provider [phone] Reason for Visit * Reason Comments Med Refill Encounter Details Date Type Department Care Team ([facility] st Contact Info) Description 01/17/2023 Refill [facility] [address] [place] [address] Lori Acevedo MD [address] [place] [address] Vitamin D deficiency Social History Tobacco Use [...] deficiency documented in this encounter Care Teams Bobtail Driver Relationship Specialty Start Date End Date Lori Acevedo MD [address] [place] [address] PCP - General Family Medicine 02/16/20 documented as of this encounter
--- OUTSIDE RECORDS SUMMARY | 2025-02-25 02:34 | XMS_ITS | Clinical Summary ---
Author Organization [facility] Address [address] [place] [phone] Phone Care Team Providers Care Autism Teacher Name Role Phone Lori Acevedo MD Primary [...] patient's age to complete this topic Insurance [employer] Care Teams Autism Teacher Relationship Specialty Start Date End Date Lori Acevedo MD [address] [place] [phone] PCP - General Urgent Care 04/13/20
--- NOTE | 2025-02-25 03:46 | ECG_ITS ---
Test Reason : HYPERTENSION Blood Pressure : */* mmHG Vent. Rate : 55 BPM Atrial Rate : 55 BPM P-R Int : 180 ms QRS Dur : 124 ms QT Int : 422 ms P-R-T Axes : 33 -5 39 degrees QTcB Int : 403 ms Sinus bradycardia Left ventricular hypertrophy with QRS widening and repolarization abnormality ( [place] product ) Abnormal ECG When compared with ECG of 25-Feb-2025 01:47, No significant change was found Referred By: Sheree Arthur Electronically Signed By: Marlon Conte
--- NOTE | 2025-02-25 04:12 | ED.GENADULT ---
HPI - General Adult General Chief complaint: General Medical Stated complaint: Sick Time Seen by Provider: 02/25/25 03:36 Source: patient Mode of arrival: ambulatory Limitations: no limitations History of Present Illness ED Provider: Dr. Sheree Arthur HPI narrative: Patient comes to the emergency room complaining of high blood pressure. Patient states that earlier today it was 215/98, took his blood pressure medications. States that he is compliant with his medications. When patient arrived, patient's blood pressure was 176 /79. Patient denies chest pain or shortness of breath, no visual changes, no headache. Related Data Previous Rx's ?Medication ?Instructions ?Recorded amlodipine 10 mg tablet (Norvasc) 10 mg PO DAILY #30 tabs 03/22/20 hydrochlorothiazide 25 mg tablet 25 mg PO DAILY #14 tabs 08/05/21 ibuprofen 600 mg tablet 600 mg PO Q6H PRN pain #20 tabs 01/05/24 Allergies Allergy/AdvReac Type Severity Reaction Status Date / Time No Known Allergies (No Known Allergy Verified 02/25/25 00:05 Allergies*) Review of Systems Review of Systems: Constitutional : No Weight loss, No Fever, No Chills, No Night Sweats, No Fatigue, No Malaise ENT/Mouth : No Hearing loss, No Ear Pain, No Nasal Congestion, No Sinus Pain, No Hoarseness, No sore throat, No Rhinorrhea, No Swallowing Difficulty Eyes: No Eye Pain, No Swelling, No Redness, No Foreign Body, No Discharge, No Vision Changes Cardiovascular : Complaining of asymptomatic high blood pressure, No Chest Pain, No SOB, No Dyspnea on Exertion, No Orthopnea, No Edema, No Palpitations Respiratory : No Cough, No Sputum, No Wheezing, No Smoke Exposure, No Dyspnea Gastrointestinal : No Nausea, No Vomiting, No Diarrhea, No Constipation, No abdominal Pain, No Hematochezia, No Melena Genitourinary : no irregular bleeding, No Dysuria, No Urinary Frequency, No Hematuria, No Urinary Incontinence, No Urgency, No Flank Pain, No Urinary Flow Changes, No Hesitancy Musculoskeletal : No joint pain, No Myalgias, No Joint Swelling Skin : No Skin Lesions, No rash Neuro : No Weakness, No Numbness, No Paresthesias, No Loss of Consciousness, No Dizziness, No Headache Psych : No Anxiety/Panic, No Depression, No SI/HI/AH/VH, No Social Issues, Heme/Lymph: No Bruising, No Bleeding,No Lymphadenopathy Endocrine : No Polyuria, No Polydipsia, No Temperature Intolerance [facility] Past Medical History Medical History Diabetes 1.5, managed as type 2 Hypertension Social History Social History Alcohol intake: former Patient Tobacco Use Status: Former Tobacco user Advance Directives: No Advance Directives Information Provided: Yes Physical Exam ED Exam Exam: Appearance: Alert. Oriented X3. No acute distress. Eyes: Pupils equal, round and reactive to light. ENT: Pharynx normal. Neck: Normal inspection. Neck supple. No lymph nodes noted. No crepitus CVS: Normal heart rate and rhythm. Pulses normal. Normal S1 and S2 Respiratory: No respiratory distress. Breath sounds normal. No Wheezing. No rales Abdomen: Soft and nontender. No rigidity. No distention. Skin: Skin warm and dry. Normal skin color. Normal skin turgor. Extremities: No lower extremity edema. No Lacerations. No Rash Neuro: Oriented X 3. No motor deficit. No sensory deficit. Moving all extremities. No slurred speech. CN 2 through 12 grossly intact Psych: calm, cooperative, normal affect Vital Signs: Vital Signs - 24 hr 02/24/25 23:59 02/25/25 02:00 02/25/25 04:13 Temperature 97.7 F 98.4 F 97.7 F Pulse Rate 74 53 55 Respiratory Rate 16 17 17 Blood Pressure 176/79 H 153/74 H 163/83 H Pulse Oximetry 96 97 98 Oxygen Delivery Method Room Air Room Air Room Air BMI result Body Mass Index 29.3 Medical Decision Making Medical Decision Making MDM Narrative: my interpreta my interpretation of EKG: Sinus bradycardia, heart rate 54, nonspecific T-wave inversions in V5 V6, previously seen desats inversion, QTC 398 - my interpretation of EKG 2.: Normal sinus rhythm, heart rate 55, no significant changes in V5 V6, lead V5 looks better as previous EKGs, back to baseline, QTC 403 - patient's blood pressure is 146 systolic. My interpretation of labs: No significant abnormality in patient's hematology and chemistry, troponin negative patient instructed to continue taking his medications as prescribed. Patient takes carvedilol, hydrochlorothiazide, lisinopril Lab Data MDM Lab Attestation statement: I reviewed the patient's lab results. 02/25/25 00:12 02/25/25 00:12 Labs: Lab Results 02/25/25 Range/Units 00:12 WBC 8.5 (4.8-10.8) X10*3/uL RBC 4.96 (4.60-5.80) X10*6/uL Hgb 13.4 L (14.0-18.0) g/dl Hct 41.7 L (42.0-52.0) % MCV 84.1 (80.0-98.0) fL MCH 27.0 (27.0-33.0) pg MCHC 32.1 (31.0-36.0) g/dl RDW 13.5 (11.0-16.0) % Plt Count 230 (160-400) X10*3/uL MPV 9.6 (9.4-12.4) fL Immature Gran % (Auto) 0.2 (0.0-0.4) % Neut % (Auto) 59.6 (45-73) % Lymph % (Auto) 28.8 (20-40) % [place] % (Auto) 9.4 (2-11) % Eos % (Auto) 1.4 (0-4) % Baso % (Auto) 0.6 (0-2) % Lymph # (Auto) 2.5 (1.2-4.9) X10*3/uL [place] # (Auto) 0.8 (0.1-1.2) X10*3/uL Eos # (Auto) 0.1 (0.0-0.4) X10*3/uL Baso # (Auto) 0.1 (0.0-0.2) X10*3/uL Abs Immat Gran (auto) 0.02 (0.00-0.03) X10*3/uL Absolute Neuts (auto) 5.1 (2.0-8.3) x10*3/uL Absolute Nucleated RBC 0.000 (0.0-0.012) X10*3/uL Nucleated RBC % (auto) 0.0 (0.0-0.2) /100WBC Sodium 136 (135-145) mmol/L Potassium 3.9 (3.3-5.1) mmol/L Chloride 103 (96-108) mmol/L Carbon Dioxide 26 (22-29) mmol/L Anion Gap 11 L (12-20) BUN 14 (9-16) mg/dL Creatinine 1.14 (0.5-1.4) mg/dL Estim Creat Clear Calc 65.9 Estimated GFR > 60 Random Glucose 102 (60-115) mg/dL Calcium 9.8 (8.4-10.2) mg/dL Total Bilirubin 0.3 (0.0-1.0) mg/dL AST 20 (5-37) U/L ALT 20 (0-40) U/L Alkaline Phosphatase 101 (39-117) U/L Troponin I High Sens 11.1 (<3.5-35.0) ng/L Total Protein 7.3 (6.5-8.0) g/dL Albumin 4.3 (3.5-5.0) g/dL Independent Interpretation I performed an independent interpretation of an: EKG Discharge Plan Discharge Clinical Impression: Hypertension Patient Disposition: Home, Self-Care Instructions: Hypertension (ED) Additional Instructions: Please follow-up with your primary care physician tomorrow. If you have any worsening or new symptoms, please return to the emergency room or call 911 Prescriptions: No Action amlodipine [Norvasc] 10 mg tablet 10 mg PO DAILY Qty: 30 0RF hydrochlorothiazide 25 mg tablet 25 mg PO DAILY Qty: 14 0RF ibuprofen 600 mg tablet 600 mg PO Q6H PRN (Reason: pain) Qty: 20 0RF Print Language: Kinyarwanda
[2025-02-25 04:13] VITALS: BP 163/83; PULSE 55; RESP 17; TEMP 36.5; O2SAT 98
[2025-02-25 04:59] VITALS: BP 163/83; PULSE 55; RESP 17; TEMP 36.5; O2SAT 98
== END 2025-02-25 05:01 | disposition home or self-care (01) ==
PROVIDERS: Emergency Provider Emergency Medicine; PCP General Practice
DX: R07.9 Chest pain, unspecified (principal); I10 Essential (primary) hypertension; F17.210 Nicotine dependence, cigarettes, uncomplicated
CPT/HCPCS: 36415; 80053; 84484; 85025; 93005; 99283; 99284

== ENCOUNTER → 2025-02-25 01:47 | Outpatient (BNV) | payer OTHER, SELFPAY | PROVIDERS: Emergency Provider Emergency Medicine; PCP General Practice; Visit Provider Internal Medicine Cardiovascular Disease | DX: R00.1 Bradycardia, unspecified (principal); I42.2 Other hypertrophic cardiomyopathy | CPT/HCPCS: 93010 ==